=== PATIENT | female | born 1965 | race Caucasian/White ===

== ENCOUNTER 2020-12-19 19:10 | Emergency (ER) | payer MEDICAID ==
[2020-12-19] MEDS ORDERED: Lactated Ringers 1,000 ML IV ONE (19:24)
[2020-12-19] MEDS ORDERED: Sodium Chloride 0.9% 10 ML Syringe FLUSH PRN (19:25)
[2020-12-19] MEDS ORDERED: hydrOXYzine HCl 25 MG Tab PO ONE (19:25)
--- NOTE | 2020-12-19 19:59 | EDM.PDOC ---
ED HPI GENERAL MEDICAL PROBLEM - General Time Seen by Provider: 12/19/20 19:16 Source of Information: Reports: Patient, EMS - History of Present Illness INITIAL COMMENTS - FREE TEXT/NARRATIVE: Amy is a 55 y/o female who was brought to the ER by EMS after she started to have an anxiety attack. She reports that a couple hours ago she got very anxious and felt her heart beating fast. She was starting to think about "things" and then she was crying. She reports that her ex- 3 weeks ago and she got very sad about this today. She also in the last 2 weeks moved to [place] and is living with her son. She reports that she has been out her Zoloft and BP meds for a couple weeks. She did have an attack like this last summer, but otherwise her anxiety has been controlled. She dies admit to using a couple alcoholic drinks today and smoking marijuana. She reports that she uses marijuana for pain. She is disabled due to her arthritis pain issues. arthritic pain/hips/knees Pain Score (Numeric/FACES): 5 - Related Data Allergies Allergy/AdvReac Type Severity Reaction Status Date / Time Penicillins Allergy Cannot Verified 12/19/20 20:02 Remember Home Meds: Home Meds Losartan [Cozaar] 50 mg PO DAILY #14 tab 12/19/20 [Rx] Sertraline HCl [Zoloft] 100 mg PO DAILY #14 tablet 12/19/20 [Rx] traZODone HCl [Trazodone HCl] 50 mg PO BEDTIME #14 tablet 12/19/20 [Rx] Review of Systems - Review of Systems Review Of Systems: See Below Constitutional: Reports: No Symptoms Eyes: Reports: No Symptoms Ears: Reports: No Symptoms Nose: Reports: No Symptoms Mouth/Throat: Reports: No Symptoms Respiratory: Reports: No Symptoms Cardiovascular: Reports: Chest Pain (sharp right sided under the right breast), Palpitations GI/Abdominal: Reports: No Symptoms Genitourinary: Reports: No Symptoms Musculoskeletal: Reports: No Symptoms Skin: Reports: No Symptoms Neurological: Reports: No Symptoms Psychiatric: Reports: Depression, Anxiety ED EXAM, GENERAL - Physical Exam Exam: See Below General Appearance: Alert, WD/WN, No Apparent Distress, Anxious (Adult female, crying and upset when questioned. Cooperative with staff.) Eye Exam: Bilateral Eye: PERRL Ears: Normal Canal, Hearing Grossly Normal Nose: Normal Inspection, Normal Mucosa Throat/Mouth: Normal Inspection, Normal Lips, Normal Voice Head: Atraumatic, Normocephalic Neck: Supple Respiratory/Chest: No Respiratory Distress, Lungs Clear, Chest Non-Tender Cardiovascular: Normal Peripheral Pulses, No Murmur, Tachycardia GI/Abdominal: Normal Bowel Sounds, Soft, Non-Tender, Other (Obese) (Female) Exam: Deferred Rectal (Female) Exam: Deferred Back Exam: Other (Deferred) Extremities: Normal Inspection, Normal Range of Motion, Normal Capillary Refill Neurological: Alert, Oriented, CN II-XII Intact, Normal Cognition Psychiatric: Anxious, Tearful Skin Exam: Warm, Dry, Intact, Normal Color #1 Interpretation EKG Date: 12/19/20 Time: 19:11 Rhythm: Other (Sinus Tachycardia) Rate (Beats/Min): 121 [place]: Normal P-Wave: Present QRS: Normal ST-T: Normal QT: Prolonged Comparison: NA - No Prior EKG Course - Vital Signs Text/Narrative:: 1915 The patient was seen by the [facility]. Labs, EKG ordered. She was given a liter of LR and Hydroxyzine 100mg po. 2024 Labs reviewed. Note ONMA=664. TSH=2.2, UA neg, UDS=neg, Potassium=3.3, Koxrupp=908, CBC neg. Patient reports feeling better after IV fluids, her pulse rate had normalized. She was no longer anxious after Hydroxyzine. She was given Potassium 40mEq po x 1 for the low potassium. Discussed findings with the patient who then also told [facility] that she had gotten into an argument with her son prior to all of this starting. [facility] will write her for 14 days of Losartan, Zoloft, and Trazadone and she is advised to establish care with a local PCP during that time. She agreed and had no further questions. She was given written instructions and left the ER in stable condition. Last Recorded V/S: Last Vital Signs Temp 37.1 C 12/19/20 19:10 Pulse 136 H 12/19/20 19:10 Resp 24 H 12/19/20 19:10 BP 145/92 H 12/19/20 19:10 Pulse Ox 95 12/19/20 19:10 - Orders/Labs/Meds Orders: Active Orders 24 hr Category Date Time Status EKG Documentation Completion [RC] STAT Care 12/19/20 19:24 Active Sodium Chloride 0.9% [Saline Flush] Med 12/19/20 19:25 Active 10 ml FLUSH ASDIRECTED PRN Saline Lock Insert [OM.PC] Stat Oth 12/19/20 19:24 Ordered Medication Orders Sodium Chloride (Saline Flush) 10 ml FLUSH ASDIRECTED PRN PRN Reason: Keep Vein Open Labs: Laboratory Tests 12/19/20 12/19/20 12/19/20 Range/Units 19:39 19:39 20:00 WBC 9.0 (4.0-10.0) x10^3/uL RBC 5.28 (4.00-5.50) x10^6/uL Hgb 16.8 H (12.0-16.0) g/dL Hct 48.2 H (33.0-47.0) % MCV 91.3 (78.0-93.0) fL MCH 31.8 (26.0-32.0) pg MCHC 34.9 (32.0-36.0) g/dL RDW Coeff of Jacqueline 14.1 (10.0-15.0) % Plt Count 327 (130-400) x10^3/uL Neut % (Auto) 67.8 (50.0-80.0) % Lymph % (Auto) 24.7 L (25.0-50.0) % [place] % (Auto) 5.5 (2.0-11.0) % Eos % (Auto) 1.6 (0.0-4.0) % Baso % (Auto) 0.4 (0.2-1.2) % Sodium 141 (136-145) mmol/L Potassium 3.3 L (3.5-5.1) mmol/L Chloride 100 (98-107) mmol/L Carbon Dioxide 22 (21-32) mmol/L Anion Gap 22.3 H (5-15) mmol/L BUN 8 (7-18) mg/dL Creatinine 0.7 (0.55-1.02) mg/dL Est Cr Clr Drug Dosing TNP Estimated GFR (MDRD) > 60 Glucose 123 H (74-106) mg/dL Calcium 9.5 (8.5-10.1) mg/dL Corrected Calcium 9.34 (8.5-10.1) mg/dL Magnesium 1.8 (1.8-2.4) mg/dL Total Bilirubin 0.3 (0.2-1.0) mg/dL AST 24 (15-37) U/L ALT 27 (14-59) U/L Alkaline Phosphatase 83 (46-116) U/L Troponin I < 0.017 (<=0.056) ng/mL C-Reactive Protein 1.1 H (<=0.9) mg/dL Total Protein 8.0 (6.4-8.2) g/dL Albumin 4.2 (3.4-5.0) g/dL Globulin 3.8 Albumin/Globulin Ratio 1.11 TSH, Ultra Sensitive 2.287 (0.358-3.74) uIU/mL Urine Color Light yellow (YELLOW) Urine Appearance Clear (CLEAR) Urine pH 6.5 (5.0-8.0) Ur Specific [place] <=1.005 Urine Protein Trace H (NEGATIVE) mg/dL Urine Glucose (UA) Negative (NEGATIVE) mg/dL Urine Ketones Negative (NEGATIVE) mg/dL Urine Occult Blood Negative (NEGATIVE) Urine Nitrite Negative (NEGATIVE) Urine Bilirubin Negative (NEGATIVE) Urine Urobilinogen 0.2 (0.2) EU/dL Ur Leukocyte Esterase Negative (NEGATIVE) Urine RBC 0-5 (NOT SEEN) /HPF Urine WBC 0-5 (NOT SEEN) /HPF Ur Squamous Epith Cells Few H (NEGATIVE) /HPF Urine Bacteria Not seen (NEGATIVE) /HPF Urine Mucus Rare H (NEGATIVE) /LPF Urine Opiates Screen (NEGATIVE) Ur Buprenorphine Scrn (NEGATIVE) Ur Oxycodone Screen (NEGATIVE) Ur EDDP (Meth Metab) (NEGATIVE) Urine Methadone Screen (NEGATIVE) Ur Barbituates Screen (NEGATIVE) Ur Tricyclics Screen (NEGATIVE) Ur Phencyclidine Scrn (NEGATIVE) Ur Amphetamines Screen (NEGATIVE) U Methamphetamines Scrn (NEGATIVE) Urine MDMA Screen (NEGATIVE) U Benzodiazepines Scrn (NEGATIVE) Urine Cocaine Screen (NEGATIVE) U Marijuana (THC) Screen (NEGATIVE) Ethyl Alcohol 210 H (0-3) mg/dL 12/19/20 Range/Units 20:00 WBC (4.0-10.0) x10^3/uL RBC (4.00-5.50) x10^6/uL Hgb (12.0-16.0) g/dL Hct (33.0-47.0) % MCV (78.0-93.0) fL MCH (26.0-32.0) pg MCHC (32.0-36.0) g/dL RDW Coeff of Jacqueline (10.0-15.0) % Plt Count (130-400) x10^3/uL Neut % (Auto) (50.0-80.0) % Lymph % (Auto) (25.0-50.0) % [place] % (Auto) (2.0-11.0) % Eos % (Auto) (0.0-4.0) % Baso % (Auto) (0.2-1.2) % Sodium (136-145) mmol/L Potassium (3.5-5.1) mmol/L Chloride (98-107) mmol/L Carbon Dioxide (21-32) mmol/L Anion Gap (5-15) mmol/L BUN (7-18) mg/dL Creatinine (0.55-1.02) mg/dL Est Cr Clr Drug Dosing Estimated GFR (MDRD) Glucose (74-106) mg/dL Calcium (8.5-10.1) mg/dL Corrected Calcium (8.5-10.1) mg/dL Magnesium (1.8-2.4) mg/dL Total Bilirubin (0.2-1.0) mg/dL AST (15-37) U/L ALT (14-59) U/L Alkaline Phosphatase (46-116) U/L Troponin I (<=0.056) ng/mL C-Reactive Protein (<=0.9) mg/dL Total Protein (6.4-8.2) g/dL Albumin (3.4-5.0) g/dL Globulin Albumin/Globulin Ratio TSH, Ultra Sensitive (0.358-3.74) uIU/mL Urine Color (YELLOW) Urine Appearance (CLEAR) Urine pH (5.0-8.0) Ur Specific [place] Urine Protein (NEGATIVE) mg/dL Urine Glucose (UA) (NEGATIVE) mg/dL Urine Ketones (NEGATIVE) mg/dL Urine Occult Blood (NEGATIVE) Urine Nitrite (NEGATIVE) Urine Bilirubin (NEGATIVE) Urine Urobilinogen (0.2) EU/dL Ur Leukocyte Esterase (NEGATIVE) Urine RBC (NOT SEEN) /HPF Urine WBC (NOT SEEN) /HPF Ur Squamous Epith Cells (NEGATIVE) /HPF Urine Bacteria (NEGATIVE) /HPF Urine Mucus (NEGATIVE) /LPF Urine Opiates Screen Negative (NEGATIVE) Ur Buprenorphine Scrn Negative (NEGATIVE) Ur Oxycodone Screen Negative (NEGATIVE) Ur EDDP (Meth Metab) Negative (NEGATIVE) Urine Methadone Screen Negative (NEGATIVE) Ur Barbituates Screen Negative (NEGATIVE) Ur Tricyclics Screen Negative (NEGATIVE) Ur Phencyclidine Scrn Negative (NEGATIVE) Ur Amphetamines Screen Negative (NEGATIVE) U Methamphetamines Scrn Negative (NEGATIVE) Urine MDMA Screen Negative (NEGATIVE) U Benzodiazepines Scrn Negative (NEGATIVE) Urine Cocaine Screen Negative (NEGATIVE) U Marijuana (THC) Screen Negative (NEGATIVE) Ethyl Alcohol (0-3) mg/dL Meds: Medications Generic Name Dose Route Start Last Admin Trade Name Freq PRN Reason Stop Dose Admin Sodium Chloride 10 ml 12/19/20 19:25 Saline Flush FLUSH ASDIRECTED PRN Keep Vein Open Discontinued Medications Generic Name Dose Route Start Last Admin Trade Name Freq PRN Reason Stop Dose Admin Hydroxyzine HCl 100 mg 12/19/20 19:25 12/19/20 19:50 Atarax PO 12/19/20 19:26 100 mg ONETIME ONE Administration Lactated Ringer's 1,000 mls @ 999 mls/hr 12/19/20 19:24 12/19/20 19:55 Ringers, Lactated IV 12/19/20 20:24 999 mls/hr ONETIME ONE Administration Potassium Chloride 40 meq 12/19/20 20:22 12/19/20 20:33 Klor-Con M20 PO 12/19/20 20:23 40 meq ONETIME ONE Administration Departure - Departure Time of Disposition: 20:35 Disposition: Home, Self-Care 01 Preliminary Cause of *Q: Sepsis & Multi System Organ Failure Condition: Good Clinical Impression: Anxiety, Hypokalemia, Noncompliance with medications Alcohol intoxication Qualifiers: Complication of substance-induced condition: uncomplicated Qualified Code(s): F10.920 - Alcohol use, unspecified with intoxication, uncomplicated Hypertension Qualifiers: Hypertension type: unspecified Qualified Code(s): I10 - Essential (primary) hypertension - Discharge Information *PRESCRIPTION DRUG MONITORING PROGRAM REVIEWED*: No *COPY OF PRESCRIPTION DRUG MONITORING REPORT IN PATIENT FAVIO: No Prescriptions: Losartan [Cozaar] 50 mg PO DAILY #14 tab traZODone HCl [Trazodone HCl] 50 mg PO BEDTIME #14 tablet Sertraline HCl [Zoloft] 100 mg PO DAILY #14 tablet Instructions: Binge-Drinking Information, Adult, Managing Anxiety, Adult, Managing Your Hypertension Referrals: PCP,None [Primary Care Provider] - Additional Instructions: -You have been written for 14 days of Losartan, Zoloft, and Trazadone. Please fill them tomorrow AM at one of the local pharmacies. -Stay well hydrated with plenty of water. Eat a hearty meal when you get home. Avoid any further alcohol tonight. -Rest. -Call one of the local clinics on Tuesday to set up an appt time to establish care here in [place]. -Resume the Potassium and Magnesium that you have at home. -Return to the ER for any concerns as needed. Sepsis Event Note (ED) - Focused Exam Vital Signs: Vital Signs Temp Pulse Resp BP Pulse Ox 12/19/20 19:10 37.1 C 136 H 24 H 145/92 H 95 - My Orders Last 24 Hours: My Active Orders 12/19/20 19:24 EKG Documentation Completion [RC] STAT Saline Lock Insert [OM.PC] Stat 12/19/20 19:25 Sodium Chloride 0.9% [Saline Flush] 10 ml FLUSH ASDIRECTED PRN - Assessment/Plan Last 24 Hours: My Active Orders 12/19/20 19:24 EKG Documentation Completion [RC] STAT Saline Lock Insert [OM.PC] Stat 12/19/20 19:25 Sodium Chloride 0.9% [Saline Flush] 10 ml FLUSH ASDIRECTED PRN Assessment:: 1)Anxiety 2)Alcohol Intoxication 3)Hypertension 4)Hypokalemia 5)Noncompliance with medications
[2020-12-19 20:14] LABS: BUPRENORPHINE,URINE NEGATIVE (NEGATIVE); MARIJUANA,URINE NEGATIVE (NEGATIVE); METHYLENEDIOXYMETHAMP,UR NEGATIVE (NEGATIVE); PHENCYCLIDINE,URINE NEGATIVE (NEGATIVE)
[2020-12-19 20:16] LABS: CHLORIDE,CL 100 mmol/L (98-107); SODIUM,NA 141 mmol/L (136-145)
[2020-12-19 20:17] LABS: ANION GAP 22.3 mmol/L (5-15)
[2020-12-19] MEDS ORDERED: Potassium Chloride 20 MEQ Tab.ER PO ONE (20:22)
== END 2020-12-19 20:48 | disposition home or self-care (01) ==
LOC: VM.ED 19:10
DX: F41.9 Anxiety disorder, unspecified (principal); I10 Essential (primary) hypertension; E87.6 Hypokalemia; F10.120 Alcohol abuse with intoxication, uncomplicated; R00.0 Tachycardia, unspecified; E66.9 Obesity, unspecified; Z68.32 Body mass index [BMI] 32.0-32.9, adult; Z91.14 Patient's other noncompliance with medication regimen; Y90.7 Blood alcohol level of 200-239 mg/100 ml; Z88.0 Allergy status to penicillin
CPT/HCPCS: 36415; 80053; 80305-QW; 80307; 81001; 83735; 84443; 84484; 85025; 86140; 93005; 93010; 99284; 99284-25; A9270-GY; J7120

== ENCOUNTER 2021-09-30 09:52 | Observation (INO) | payer MEDICAID ==
--- NOTE | 2021-09-30 10:16 | EDM.PDOC ---
ED HPI GENERAL MEDICAL PROBLEM - General Chief Complaint: General Stated Complaint: Numbness and tingling in her legs and arms shortness of breath Time Seen by Provider: 09/30/21 09:55 Source of Information: Reports: Patient History Limitations: Reports: No Limitations - History of Present Illness INITIAL COMMENTS - FREE TEXT/NARRATIVE: 56-year-old white female that presents to the ER today with ongoing numbness and tingling in her legs arms around her lips that started about 8:00 this morning with some shortness of breath. Patient states that she does has numbness and tingling going all the way up and down her legs and arms and around her lips she states maybe she is a little bit anxious this morning. She states numbness and tingling actually started about 2 days ago and she felt like she may be having a flareup of her diverticulitis that she had several years ago when her leg started having numbness and tingling like this. She also states that she is had little bit of shortness of breath secondary to getting worked up a little bit. She admits she does have anxiety and usually takes lorazepam but she has not taken her morning dose nor she taken her morning dose of her hypertension medications this morning. She denies any chest pain nausea vomiting abdominal pain changes with bowel movements or bleeding states she feels fine except for the HPI above. She does admit that she has anxiety attacks occasionally but it has been a little while Duration: Hour(s):, Day(s): Quality: Reports: Burning, Other (Numbness and tingling to the legs and the hands) Improves with: Reports: None Worsens with: Reports: None Associated Symptoms: Reports: Shortness of Breath. Denies: Confusion, Chest Pain, Cough, cough w sputum, Diaphoresis, Fever/Chills, Headaches, Malaise, Nausea/Vomiting, Rash, Seizure, Weakness - Related Data Allergies Allergy/AdvReac Type Severity Reaction Status Date / Time cefazolin Allergy Hives Verified 09/30/21 10:30 morphine Allergy Difficulty Verified 09/30/21 10:30 Breathing Penicillins Allergy Cannot Verified 09/30/21 10:30 Remember povidone-iodine Allergy Rash Verified 09/30/21 10:30 Home Meds: Home Meds Losartan [Cozaar] 50 mg PO DAILY #14 tab 12/19/20 [Rx] traZODone HCl [Trazodone HCl] 50 mg PO BEDTIME #14 tablet 12/19/20 [Rx] Acetaminophen [Acetaminophen Extra Strength] 1,000 mg PO Q6H PRN 09/30/21 [History] DULoxetine [Cymbalta] 60 mg PO DAILY 09/30/21 [History] LORazepam [Ativan] 0.5 mg PO TID PRN 09/30/21 [History] Melatonin 10 mg PO BEDTIME 09/30/21 [History] Nystatin 1 each MC BID PRN 09/30/21 [History] Potassium Chloride 20 meq PO DAILY 09/30/21 [History] busPIRone HCl [Buspirone HCl] 7.5 mg PO BID 09/30/21 [History] Past Medical History Cardiovascular History: Reports: Hypertension Gastrointestinal History: Reports: Diverticulosis Musculoskeletal History: Reports: Arthritis Psychiatric History: Reports: Anxiety, Depression, Panic Attack - Past Surgical History GI Surgical History: Reports: Other (See Below) Other GI Surgeries/Procedures: Colon resection ED ROS GENERAL - Review of Systems Review Of Systems: See Below Constitutional: Reports: No Symptoms HEENT: Reports: No Symptoms Respiratory: Reports: Shortness of Breath. Denies: Wheezing, Pleuritic Chest Pain, Cough, Sputum, Hemoptysis Cardiovascular: Reports: No Symptoms. Denies: Chest Pain, Blood Pressure Problem, Claudication, Dyspnea on Exertion, Lightheadedness, Orthopnea Endocrine: Reports: No Symptoms GI/Abdominal: Reports: No Symptoms : Reports: No Symptoms Musculoskeletal: Reports: No Symptoms. Denies: Neck Pain, Shoulder Pain, Back Pain, Muscle Pain, Muscle Stiffness Skin: Reports: No Symptoms Neurological: Reports: Numbness, Tingling. Denies: Confusion, Dizziness, Headache, Paresthesia, Pre-Existing Deficit, Trouble Speaking, Difficulty Walking, Weakness, Change in Speech, Gait Disturbance Psychiatric: Reports: No Symptoms Hematologic/Lymphatic: Reports: No Symptoms Immunologic: Reports: No Symptoms ED EXAM, GENERAL - Physical Exam Exam: See Below Exam Limited By: No Limitations General Appearance: Alert, WD/WN, No Apparent Distress, Anxious Eye Exam: Bilateral Eye: EOMI, Normal Inspection, PERRL Ears: Hearing Grossly Normal Nose: Normal Inspection, Normal Mucosa, No Blood Throat/Mouth: Normal Inspection, Normal Lips, Normal Teeth, Normal Gums, Normal Oropharynx, Normal Voice, No Airway Compromise Head: Atraumatic, Normocephalic Neck: Normal Inspection, Supple, Non-Tender, Full Range of Motion Respiratory/Chest: No Respiratory Distress, Lungs Clear, Normal Breath Sounds, No Accessory Muscle Use, Chest Non-Tender, Wheezing, Other (Some mild end expiratory wheezing no signs or symptoms of any respiratory distress noted patient is noted to be tachycardic but satting fine respiratory is fine no accessory muscles used). No: Respiratory Distress, Decreased Breath Sounds, Accessory Muscle Use Cardiovascular: Normal Peripheral Pulses, Regular Rate, Rhythm, No Edema, No Gallop, No JVD, No Murmur, No Rub, Tachycardia GI/Abdominal: Normal Bowel Sounds, Soft, Non-Tender, No Organomegaly, No Distention, Other (No peritoneal signs noted). No: Guarding, Rigid, Rebound, Tender Back Exam: Normal Inspection, Full Range of Motion Extremities: Normal Inspection, Normal Range of Motion, Non-Tender, Normal Capillary Refill, Other (+1 bilateral pedal edema patient states this is about her normal). No: No Pedal Edema Neurological: Alert, Oriented, CN II-XII Intact, Normal Cognition, No Motor/Sensory Deficits, Other (Patient has equal intelligence intern 5 of 5 upper extremity lower extremity bilateral) Psychiatric: Normal Affect, Normal Mood Skin Exam: Warm, Dry, Intact, Normal Color, No Rash #1 Interpretation EKG Date: 09/30/21 Time: 10:00 Rhythm: NSR [place]: Normal P-Wave: Present QRS: Normal ST-T: Normal QT: Normal Course - Vital Signs Text/Narrative:: CBC BMP chest x-ray EKG BNP CBC noted to have white count of 14.8 but patient is afebrile no symptoms of infection BMP potassium and magnesium and calcium are low EKG shows normal sinus rhythm with tachycardia no acute findings noted BNP of 200 Patient has no chest pain whatsoever no signs or symptoms of any cardiac issues at this time Patient was rechecked states she feels much better in regards to the shortness of breath and the numbness and tingling but does admit she is having some muscle cramping to the lower extremities now. We will put the patient in for observation with Dr. Arminda Powers secondary to electrolyte [id number] Last Recorded V/S: Last Vital Signs Temp 36.1 C 09/30/21 10:40 Pulse 120 H 09/30/21 10:40 Resp 24 H 09/30/21 10:40 BP 164/113 H 09/30/21 11:01 Pulse Ox 97 09/30/21 10:40 - Orders/Labs/Meds Orders: Active Orders 24 hr Category Date Time Status EKG 12 Lead [EKG Documentation Completion] [RC] STAT Care 09/30/21 10:45 Active CORONAVIRUS COVID-19 RAPID [MOLEC] Urgent Lab 09/30/21 11:51 Ordered LORazepam [Ativan] Med 09/30/21 11:52 Once 0.5 mg PO ONETIME ONE Sodium Chloride 0.9% [Normal Saline] 1,000 ml Med 09/30/21 12:00 Ordered IV ASDIRECTED Medication Orders Sodium Chloride (Normal Saline) 1,000 mls @ 1,000 mls/hr IV ASDIRECTED ASHLEY Labs: Laboratory Tests 09/30/21 09/30/21 09/30/21 Range/Units 10:08 10:08 10:08 WBC 14.8 H (4.0-10.0) x10^3/uL RBC 5.20 (4.00-5.50) x10^6/uL Hgb 17.4 H (12.0-16.0) g/dL Hct 49.8 H (33.0-47.0) % MCV 95.8 H (78.0-93.0) fL MCH 33.5 H (26.0-32.0) pg MCHC 34.9 (32.0-36.0) g/dL RDW Coeff of Jacqueline 13.3 (10.0-15.0) % Plt Count 352 (130-400) x10^3/uL Immature Gran % (Auto) 0.40 (0.00-0.43) % Neut % (Auto) 75.7 (50.0-80.0) % Lymph % (Auto) 16.0 L (25.0-50.0) % [place] % (Auto) 6.7 (2.0-11.0) % Eos % (Auto) 0.7 (0.0-4.0) % Baso % (Auto) 0.5 (0.2-1.2) % Neut # (Auto) 11.2 H (1.8-7.7) x10^3/uL Lymph # (Auto) 2.4 (1.0-4.8) x10^3/uL [place] # (Auto) 1.0 H (0.0-0.8) x10^3/uL Eos # (Auto) 0.1 (0.0-0.5) x10^3/uL Baso # (Auto) 0.1 (0.0-0.2) x10^3/uL Immature Gran # (Auto) 0.06 (0.00-0.07) x10^3/uL Sodium 136 (136-145) mmol/L Potassium 2.4 L* (3.5-5.1) mmol/L Chloride 92 L (98-107) mmol/L Carbon Dioxide 21 (21-32) mmol/L Anion Gap 25.4 H (5-15) mmol/L BUN 5 L (7-18) mg/dL Creatinine 0.9 (0.55-1.02) mg/dL Est Cr Clr Drug Dosing TNP Estimated GFR (MDRD) > 60 Glucose 120 H (70-99) mg/dL Calcium 5.6 L* D (8.5-10.1) mg/dL Magnesium 0.5 L* (1.8-2.4) mg/dL NT-Pro-B Natriuret Pep 201 H (<=125) pg/mL Meds: Medications Generic Name Dose Route Start Last Admin Trade Name Freq PRN Reason Stop Dose Admin Sodium Chloride 1,000 mls @ 1,000 mls/hr 09/30/21 12:00 Normal Saline IV ASDIRECTED ASHLEY Discontinued Medications Generic Name Dose Route Start Last Admin Trade Name Freq PRN Reason Stop Dose Admin Lorazepam 0.5 mg 09/30/21 11:52 Lorazepam 0.5 Mg Tab PO 09/30/21 11:53 ONETIME ONE Losartan Potassium 50 mg 09/30/21 10:43 09/30/21 11:01 Losartan 50 Mg Tab PO 09/30/21 10:44 50 mg ONETIME ONE Administration Magnesium Oxide 400 mg 09/30/21 10:40 09/30/21 11:01 Magnesium Oxide 400 Mg Tab PO 09/30/21 10:41 400 mg ONETIME ONE Administration Potassium Bicarbonate 50 meq 09/30/21 10:55 09/30/21 11:01 Potassium Bicarbonate 25 Meq Tab.Eff PO 09/30/21 10:56 50 meq ONETIME ONE Administration Potassium Chloride 40 meq 09/30/21 10:41 Potassium Chloride 10% 20 Meq/15 Ml Soln 15 Ml Ud Cup PO 09/30/21 10:42 ONETIME ONE Departure - Departure Time of Disposition: 11:55 Disposition: Refer to Observation Condition: Good Clinical Impression: Tachycardia, Hypokalemia, Hypocalcemia, Magnesium deficiency, Shortness of breath - Discharge Information *PRESCRIPTION DRUG MONITORING PROGRAM REVIEWED*: No *COPY OF PRESCRIPTION DRUG MONITORING REPORT IN PATIENT FAVIO: No Forms: ED Department Discharge Sepsis Event Note (ED) - Focused Exam Vital Signs: Vital Signs Temp Pulse Resp BP BP Pulse Ox 09/30/21 11:01 164/113 H 09/30/21 10:40 36.1 C 120 H 24 H 166/113 H 97 - Problem List & Annotations (1) Hypertension SNOMED Code(s): 88018191 Code(s): I10 - ESSENTIAL (PRIMARY) HYPERTENSION Status: Acute Current Visit: No Qualifiers: Hypertension type: unspecified Qualified Code(s): I10 - Essential (primary) hypertension (2) Hypokalemia SNOMED Code(s): 40291467 Code(s): E87.6 - HYPOKALEMIA Status: Acute Current Visit: Yes (3) Hypocalcemia SNOMED Code(s): 9988350 Code(s): E83.51 - HYPOCALCEMIA Status: Acute Current Visit: Yes (4) Magnesium deficiency SNOMED Code(s): 764822505 Code(s): E61.2 - MAGNESIUM DEFICIENCY Status: Acute Current Visit: Yes (5) Shortness of breath SNOMED Code(s): 101291111 Code(s): R06.02 - SHORTNESS OF BREATH Status: Acute Current Visit: Yes (6) Tachycardia SNOMED Code(s): 4526324 Code(s): R00.0 - TACHYCARDIA, UNSPECIFIED Status: Acute Current Visit: Yes - My Orders Last 24 Hours: My Active Orders 09/30/21 10:45 EKG 12 Lead [EKG Documentation Completion] [RC] STAT 09/30/21 11:51 CORONAVIRUS COVID-19 RAPID [MOLEC] Urgent 09/30/21 11:52 LORazepam [Ativan] 0.5 mg PO ONETIME ONE 09/30/21 12:00 Sodium Chloride 0.9% [Normal Saline] 1,000 ml IV ASDIRECTED - Assessment/Plan Last 24 Hours: My Active Orders 09/30/21 10:45 EKG 12 Lead [EKG Documentation Completion] [RC] STAT 09/30/21 11:51 CORONAVIRUS COVID-19 RAPID [MOLEC] Urgent 09/30/21 11:52 LORazepam [Ativan] 0.5 mg PO ONETIME ONE 09/30/21 12:00 Sodium Chloride 0.9% [Normal Saline] 1,000 ml IV ASDIRECTED
[2021-09-30 10:33] LABS: CHLORIDE,CL 92 mmol/L (98-107); SODIUM,NA 136 mmol/L (136-145)
[2021-09-30 10:34] LABS: ANION GAP 25.4 mmol/L (5-15)
--- NOTE | 2021-09-30 10:34 | CR ---
[id number] RAD/RAD Chest PA or AP 1V EXAM: FRONTAL CHEST INDICATION: SOB COMPARISON: None. DISCUSSION: There is cardiomegaly with mild central vascular congestion. Chronic appearing right rib fractures. No effusions. IMPRESSION: 1. Cardiomegaly with probable early central vascular congestion. Derick Riley MD 09/30/21 1033 Thank you for allowing us to participate in the care of your patient.
[2021-09-30] MEDS ORDERED: Magnesium Oxide 400 MG Tab PO ONE (10:40)
[2021-09-30] MEDS ORDERED: Potassium Chloride 10% 20 MEQ/15 ML Soln 15 ML UD Cup PO ONE (10:41)
[2021-09-30] MEDS ORDERED: Losartan 50 MG Tab PO ONE (10:43)
[2021-09-30] MEDS ORDERED: Potassium Bicarbonate 25 MEQ Tab.EFF PO ONE (10:55)
[2021-09-30] MEDS ORDERED: LORazepam 0.5 MG Tab PO ONE (11:52)
[2021-09-30] MEDS ORDERED: Sodium Chloride 0.9% 1,000 ML IV SCH (12:00)
[2021-09-30] MEDS ORDERED: Magnesium Sulfate/Water 4 GM in Premix Bag 1 BAG IV ONE (12:42)
--- NOTE | 2021-09-30 13:05 | PCM.HP.2 ---
H&P History of Present Illness - General Date of Service: 09/30/21 Admit Problem/Dx: Admission Diagnosis/Problem Admission Diagnosis/Problem Electrolyte imbalance Source of Information: Patient History Limitations: Reports: No Limitations - History of Present Illness Initial Comments - Free Text/Narative: Ms. Yo is a 56 yo female with PMH of HTN, anxiety/depression, tobacco use, and OA who presented to the ER for evaluation of 24 hours of tingling in both legs from her buttocks down. Also noticing more muscle cramps in general. Has been ill recently with a cough but this is improving. Is more short of breath than usual but this is also improving. Has had some diarrhea off and on, which is not unusual for her. Not severe. Has had some dry heaves but no vomiting. No fever or chills. She has been taking her medications as prescribed. - Related Data Allergies/Adverse Reactions: Allergies Allergy/AdvReac Type Severity Reaction Status Date / Time cefazolin Allergy Hives Verified 09/30/21 10:30 morphine Allergy Difficulty Verified 09/30/21 10:30 Breathing Penicillins Allergy Cannot Verified 09/30/21 10:30 Remember povidone-iodine Allergy Rash Verified 09/30/21 10:30 Home Medications: Home Meds Losartan [Cozaar] 50 mg PO DAILY #14 tab 12/19/20 [Rx] traZODone HCl [Trazodone HCl] 50 mg PO BEDTIME #14 tablet 12/19/20 [Rx] Acetaminophen [Acetaminophen Extra Strength] 1,000 mg PO Q6H PRN 09/30/21 [History] DULoxetine [Cymbalta] 60 mg PO DAILY 09/30/21 [History] LORazepam [Ativan] 0.5 mg PO TID PRN 09/30/21 [History] Melatonin 10 mg PO BEDTIME 09/30/21 [History] Nystatin 1 each MC BID PRN 09/30/21 [History] Potassium Chloride 20 meq PO DAILY 09/30/21 [History] busPIRone HCl [Buspirone HCl] 7.5 mg PO BID 09/30/21 [History] Past Medical History HEENT History: Reports: None Cardiovascular History: Reports: Hypertension Respiratory History: Reports: COPD Gastrointestinal History: Reports: Diverticulosis Genitourinary History: Reports: None Musculoskeletal History: Reports: Arthritis Neurological History: Reports: None Psychiatric History: Reports: Anxiety, Depression, Panic Attack Endocrine/Metabolic History: Reports: Obesity/BMI 30+ Hematologic History: Reports: None Oncologic (Cancer) History: Reports: None Dermatologic History: Reports: None - Past Surgical History HEENT Surgical History: Reports: Cataract Surgery GI Surgical History: Reports: Cholecystectomy, Colonoscopy, Other (See Below) Other GI Surgeries/Procedures: Colon resection Female Surgical History: Reports: Section, Hysterectomy Neurological Surgical History: Reports: Lumbar Spine Musculoskeletal Surgical History: Reports: Knee Replacement (and subsequent revision), Other (See Below) (bunion) Social & Family History - Family History Oncologic: Reports: Lung - Tobacco Use Tobacco Use Status *Q: Current Every Day Tobacco User - Alcohol Use Alcohol Use in Last Twelve Months: Yes Alcohol Use Frequency: Daily - Recreational Drug Use Recreational Drug Use: Yes Recreational Drug Type: Reports: Marijuana/Hashish Recreational Drug Use Frequency: Daily - Living Situation & Occupation Living situation: Reports: , Alone Occupation: Disabled H&P Review of Systems - Review of Systems: Review Of Systems: See Below General: Reports: No Symptoms HEENT: Reports: No Symptoms Pulmonary: Reports: Shortness of Breath, Cough Cardiovascular: Reports: Edema. Denies: Chest Pain, Lightheadedness Gastrointestinal: Reports: Diarrhea, Nausea. Denies: Abdominal Pain, Vomiting Genitourinary: Reports: No Symptoms Musculoskeletal: Reports: Other (muscle cramps) Skin: Reports: No Symptoms Psychiatric: Reports: No Symptoms Neurological: Reports: Tingling. Denies: Confusion, Headache, Numbness Exam - Exam Exam: See Below - Vital Signs Vital Signs: Last Vital Signs Temp 36.1 C 09/30/21 10:40 Pulse 120 H 09/30/21 10:40 Resp 24 H 09/30/21 10:40 BP 164/113 H 09/30/21 11:01 Pulse Ox 97 09/30/21 10:40 Weight: 107.955 kg - Exam General: Alert, Oriented, Cooperative HEENT: Conjunctiva Clear, Mucosa Moist & Phillips, Pupils Equal, Pupils Reactive Neck: Supple, Trachea Midline. No: Lymphadenopathy, Thyromegaly Lungs: Clear to Auscultation, Normal Respiratory Effort Cardiovascular: Regular Rhythm, Normal S1, Normal S2, Tachycardia GI/Abdominal Exam: Normal Bowel Sounds, Soft, Non-Tender, No Organomegaly, No Distention, No Mass Extremities: Normal Inspection, Normal Range of Motion, Non-Tender, Pedal Edema (2+ to above the ankles bilaterally) Peripheral Pulses: 2+: Radial (L), Radial (R) Skin: Warm, Dry, Intact Neuro Extensive - Mental Status: Alert, Oriented x3 - Patient Data Lab Results Last 24 hrs: Laboratory Results - last 24 hr 09/30/21 09/30/21 09/30/21 Range/Units 10:08 10:08 10:08 WBC 14.8 H (4.0-10.0) x10^3/uL RBC 5.20 (4.00-5.50) x10^6/uL Hgb 17.4 H (12.0-16.0) g/dL Hct 49.8 H (33.0-47.0) % MCV 95.8 H (78.0-93.0) fL MCH 33.5 H (26.0-32.0) pg MCHC 34.9 (32.0-36.0) g/dL RDW Coeff of Jacqueline 13.3 (10.0-15.0) % Plt Count 352 (130-400) x10^3/uL Immature Gran % (Auto) 0.40 (0.00-0.43) % Neut % (Auto) 75.7 (50.0-80.0) % Lymph % (Auto) 16.0 L (25.0-50.0) % [place] % (Auto) 6.7 (2.0-11.0) % Eos % (Auto) 0.7 (0.0-4.0) % Baso % (Auto) 0.5 (0.2-1.2) % Neut # (Auto) 11.2 H (1.8-7.7) x10^3/uL Lymph # (Auto) 2.4 (1.0-4.8) x10^3/uL [place] # (Auto) 1.0 H (0.0-0.8) x10^3/uL Eos # (Auto) 0.1 (0.0-0.5) x10^3/uL Baso # (Auto) 0.1 (0.0-0.2) x10^3/uL Immature Gran # (Auto) 0.06 (0.00-0.07) x10^3/uL Sodium 136 (136-145) mmol/L Potassium 2.4 L* (3.5-5.1) mmol/L Chloride 92 L (98-107) mmol/L Carbon Dioxide 21 (21-32) mmol/L Anion Gap 25.4 H (5-15) mmol/L BUN 5 L (7-18) mg/dL Creatinine 0.9 (0.55-1.02) mg/dL Est Cr Clr Drug Dosing TNP Estimated GFR (MDRD) > 60 Glucose 120 H (70-99) mg/dL Calcium 5.6 L* D (8.5-10.1) mg/dL Magnesium 0.5 L* (1.8-2.4) mg/dL NT-Pro-B Natriuret Pep 201 H (<=125) pg/mL Albumin (3.4-5.0) g/dL SARS CoV-2 RNA Rapid SANNA (NEGATIVE) 09/30/21 09/30/21 Range/Units 10:08 11:48 WBC (4.0-10.0) x10^3/uL RBC (4.00-5.50) x10^6/uL Hgb (12.0-16.0) g/dL Hct (33.0-47.0) % MCV (78.0-93.0) fL MCH (26.0-32.0) pg MCHC (32.0-36.0) g/dL RDW Coeff of Jacqueline (10.0-15.0) % Plt Count (130-400) x10^3/uL Immature Gran % (Auto) (0.00-0.43) % Neut % (Auto) (50.0-80.0) % Lymph % (Auto) (25.0-50.0) % [place] % (Auto) (2.0-11.0) % Eos % (Auto) (0.0-4.0) % Baso % (Auto) (0.2-1.2) % Neut # (Auto) (1.8-7.7) x10^3/uL Lymph # (Auto) (1.0-4.8) x10^3/uL [place] # (Auto) (0.0-0.8) x10^3/uL Eos # (Auto) (0.0-0.5) x10^3/uL Baso # (Auto) (0.0-0.2) x10^3/uL Immature Gran # (Auto) (0.00-0.07) x10^3/uL Sodium (136-145) mmol/L Potassium (3.5-5.1) mmol/L Chloride (98-107) mmol/L Carbon Dioxide (21-32) mmol/L Anion Gap (5-15) mmol/L BUN (7-18) mg/dL Creatinine (0.55-1.02) mg/dL Est Cr Clr Drug Dosing Estimated GFR (MDRD) Glucose (70-99) mg/dL Calcium (8.5-10.1) mg/dL Magnesium (1.8-2.4) mg/dL NT-Pro-B Natriuret Pep (<=125) pg/mL Albumin 3.1 L (3.4-5.0) g/dL SARS CoV-2 RNA Rapid SANNA Negative (NEGATIVE) Result Diagrams: 09/30/21 10:08 09/30/21 10:08 Sepsis Event Note - Evaluation Sepsis Screening Result: Possible Sepsis Risk - Focused Exam Vital Signs: Vital Signs Temp Pulse Resp BP BP Pulse Ox 09/30/21 11:01 164/113 H 09/30/21 10:40 36.1 C 120 H 24 H 166/113 H 97 *Q Meaningful Use (ADM) - VTE *Q VTE Anticoagulation Contraindications: Med/TX Not Indicated/Need - Problem List (1) Hypomagnesemia SNOMED Code(s): 442695210 ICD Code: E83.42 - HYPOMAGNESEMIA Status: Acute Current Visit: Yes (2) Hypocalcemia SNOMED Code(s): 1693168 ICD Code: E83.51 - HYPOCALCEMIA Status: Acute Current Visit: Yes (3) Hypokalemia SNOMED Code(s): 38154318 ICD Code: E87.6 - HYPOKALEMIA Status: Acute Current Visit: Yes (4) COPD (chronic obstructive pulmonary disease) SNOMED Code(s): 45376959 ICD Code: J44.9 - CHRONIC OBSTRUCTIVE PULMONARY DISEASE, UNSPECIFIED Status: Acute Current Visit: Yes Qualifiers: COPD type: COPD with acute exacerbation Qualified Code(s): J44.1 - Chronic obstructive pulmonary disease with (acute) exacerbation (5) Tobacco use SNOMED Code(s): 911291171 ICD Code: Z72.0 - TOBACCO USE Status: Chronic Current Visit: Yes (6) Hypertension SNOMED Code(s): 23366457 ICD Code: I10 - ESSENTIAL (PRIMARY) HYPERTENSION Status: Chronic Current Visit: No Qualifiers: Hypertension type: primary hypertension Qualified Code(s): I10 - Essential (primary) hypertension (7) Anxiety and depression SNOMED Code(s): 178722196 ICD Code: F41.9 - ANXIETY DISORDER, UNSPECIFIED; F32.A - DEPRESSION, UNSPECIFIED Status: Chronic Current Visit: Yes Problem List Initiated/Reviewed/Updated: Yes Orders Last 24hrs: Active Orders 24 hr Category Date Time Status Patient Status [ADT] Urgent ADT 09/30/21 11:57 Active Cardiac Monitoring [RC] CONTINUOUS Care 09/30/21 12:43 Ordered EKG 12 Lead [EKG Documentation Completion] [RC] STAT Care 09/30/21 10:45 Active Notify Provider Vital Signs [RC] ASDIRECTED Care 09/30/21 12:49 Ordered Oxygen Therapy [RC] PRN Care 09/30/21 12:48 Ordered Up With Assistance [RC] ASDIRECTED Care 09/30/21 12:48 Ordered VTE/DVT Education [RC] PER UNIT ROUTINE Care 09/30/21 12:48 Ordered Vital Signs [RC] Q4H Care 09/30/21 12:48 Ordered Regular Diet [DIET] Diet 09/30/21 Dinner Ordered ALDOSTERONE [REF] Routine Lab 10/01/21 05:11 Ordered ALDOSTERONE/RENIN RATIO [REF] Routine Lab 10/01/21 05:11 Ordered BASIC METABOLIC PANEL,BMP [CHEM] Routine Lab 09/30/21 21:00 Ordered CBC WITH AUTO DIFF [HEME] Routine Lab 10/01/21 05:11 Ordered COMPREHENSIVE METABOLIC PN,CMP [CHEM] Routine Lab 10/01/21 05:11 Ordered CORTISOL [REF] Routine Lab 10/01/21 05:11 Ordered MAGNESIUM [CHEM] Routine Lab 09/30/21 21:00 Ordered PTH, INTACT [REF] Routine Lab 10/01/21 05:11 Ordered TSH ULTRASENSITIVE [CHEM] Routine Lab 10/01/21 05:11 Ordered Calcium Carbonate [Tums Extra Strength] Med 09/30/21 13:00 Ordered 1,500 mg PO Q2H Magnesium Sulfate/Water [Magnesium Sulfate in Water 4 Med 09/30/21 12:42 Ordered GM/100 ML] 4 gm Premix Bag 1 bag IV ONETIME Sodium Chloride 0.9% with KCl [Normal Saline with 40 Med 09/30/21 12:45 Ordered mEq KCl] 1,000 ml IV ASDIRECTED Anticoagulation Contraindications VTE [AST] Per Unit Oth 09/30/21 12:48 Ordered Routine Resuscitation Status Routine Resus Stat 09/30/21 12:48 Ordered Medication Orders Calcium Carbonate/Glycine (Calcium Carbonate 750 Mg Tab.Chew) 1,500 mg PO Q2H ASHLEY Magnesium Sulfate 4 gm/ Premix 100 mls @ 25 mls/hr IV ONETIME ONE Stop: 09/30/21 16:41 Potassium Chloride/Sodium Chloride (Normal Saline With 40 Meq Kcl) 1,000 mls @ 75 mls/hr IV ASDIRECTED ASHLEY Assessment/Plan Comment:: #1 Hypomagnesemia #2 Hypokalemia #3 Hypocalcemia - Ca corrects to 6.3 with albumin result; however, accuracy is in question with her mag being low. - Is symptomatic with this. - Need to correct magnesium before we will be able to correct anything else. Will give 4 grams over the next 4 hours. - Will give oral calcium in the form of tums. While her calcium is very low, the accuracy is in question as above and she does not have severe symptoms at this time. - Will give potassium in her IV fluids. - Recheck lab at 9 pm tonight and then make adjustments. - She will be on telemetry. - Cause for her multiple electrolyte issues is unclear. Question whether she has more of an issue with alcohol than is realized. Otherwise wonder about an endocrine cause. Lab ordered for tomorrow am to include CMP, PTH, TSH, cortisol, and aldosterone. #4 COPD exacerbation #5 Tobacco use - Recent increase in symptoms but already improving. - Will hold off on any treatment unless symptoms worse again. - Note increased WBC but will trend in the absence of other symptoms prior to doing any antibiotics. - She declines a nicotine patch. #6 Hypertension - BP very high on ER arrival. - Had not taken her medications yet today. - Will monitor through the afternoon. - If persistently high, will do a repeat dose of losartan. - Aldactone would be a good option for her BP and swelling; however, will hold off until her lab is drawn in the morning to avoid any messing with those results. #7 Anxiety and depression - Continue home medications. Patient is admitted to observation as it is hoped she will be able to d/c home tomorrow. Detailed plan as above. Code status is full - discussed on admission. No role for VTE prophylaxis given short hospital stay anticipated - will start if it is determined stay will be longer than expected. - Mortality Measure Prognosis:: Good
[2021-09-30] MEDS: Calcium Carbonate 750 MG Tab.Chew PO SCH ×6 (13:16→22:51)
[2021-09-30] MEDS: Sodium Chloride 0.9% with KCl 1,000 ML IV SCH (13:25)
[2021-09-30] MEDS ORDERED: Acetaminophen 500 MG Tab PO PRN (13:51)
[2021-09-30] MEDS: LORazepam 0.5 MG Tab PO PRN (16:29)
[2021-09-30] MEDS: busPIRone 15 MG Tab PO SCH (19:46)
[2021-09-30] MEDS ORDERED: Melatonin 3 MG Tab PO SCH (20:00)
[2021-09-30] MEDS ORDERED: traZODone 50 MG Tab PO SCH (20:00)
[2021-09-30 21:25] LABS: ANION GAP 14.6 mmol/L (5-15)
[2021-10-01] MEDS: Calcium Carbonate 750 MG Tab.Chew PO SCH ×8 (02:04→16:15)
[2021-10-01] MEDS: Sodium Chloride 0.9% with KCl 1,000 ML IV SCH (02:07)
[2021-10-01] MEDS ORDERED: DULoxetine 20 MG Cap PO SCH (08:00)
[2021-10-01] MEDS ORDERED: Losartan 50 MG Tab PO SCH (08:00)
--- NOTE | 2021-10-01 09:06 | PCM.DCSUM1 ---
Discharge Summary - Hospital Course Brief History: Ms. Yo is a 56 yo female who was admitted to observation for electrolyte repletion after presenting to the ER for evaluation of tingling and weakness in both lower extremities for the preceding 24 hours. - Discharge Data Discharge Date: 10/01/21 Discharge Disposition: Home, Self-Care 01 Condition: Good - Referral to Home Health Primary Care Physician: Arminda Sanchez MD - Discharge Diagnosis/Problem(s) (1) Hypomagnesemia SNOMED Code(s): 381608388 ICD Code: E83.42 - HYPOMAGNESEMIA Status: Acute Current Visit: Yes (2) Hypocalcemia SNOMED Code(s): 5036589 ICD Code: E83.51 - HYPOCALCEMIA Status: Acute Current Visit: Yes (3) Hypokalemia SNOMED Code(s): 90600898 ICD Code: E87.6 - HYPOKALEMIA Status: Acute Current Visit: Yes (4) COPD (chronic obstructive pulmonary disease) SNOMED Code(s): 97688049 ICD Code: J44.9 - CHRONIC OBSTRUCTIVE PULMONARY DISEASE, UNSPECIFIED Status: Acute Current Visit: Yes Qualifiers: COPD type: COPD with acute exacerbation Qualified Code(s): J44.1 - Chronic obstructive pulmonary disease with (acute) exacerbation (5) Tobacco use SNOMED Code(s): 312631119 ICD Code: Z72.0 - TOBACCO USE Status: Chronic Current Visit: Yes (6) Hypertension SNOMED Code(s): 65775201 ICD Code: I10 - ESSENTIAL (PRIMARY) HYPERTENSION Status: Chronic Current Visit: No Qualifiers: Hypertension type: primary hypertension Qualified Code(s): I10 - Essential (primary) hypertension (7) Anxiety and depression SNOMED Code(s): 806433649 ICD Code: F41.9 - ANXIETY DISORDER, UNSPECIFIED; F32.A - DEPRESSION, UNSPECIFIED Status: Chronic Current Visit: Yes - Patient Summary/Data Operative Procedure(s) Performed: none Complications: none Consults: none Labs Pending at D/C: none Recommended Follow-up Testing/Procedures: none Planned Operative Procedure(s) after DC: none Hospital Course: Patient was found to have severely low magnesium, potassium, and calcium in the ER. Repletion was started in the ER and then adjusted upon admission. Symptoms improved and eventually completely resolved. She has been able to ambulate without any balance or strength issues. She is feeling back to herself. Labs have gradually improved as well. Magnesium is now near normal as is her corrected calcium. Potassium is improved but still mildly low. Since she is feeling better, she will be discharged home on oral repletion later today. She will finish her current bag of IV fluids prior to d/c. The cause for her electrolyte abnormalities is unclear as she has not been on a diuretic. She has not been taking her potassium as prescribed but only for the past 2-3 days. Her blood pressure was initially high but has come down nicely with her losartan. She has also been struggling with a COPD exacerbation that just will not clear up. She will be discharged on 5 days of prednisone. Hospitalization was otherwise uncomplicated. She will be discharged to follow-up in clinic early next week. - Patient Instructions Diet: Usual Diet as Tolerated Activity: As Tolerated Notify Provider of: Fever, Nausea and/or Vomiting - Discharge Plan *PRESCRIPTION DRUG MONITORING PROGRAM REVIEWED*: No *COPY OF PRESCRIPTION DRUG MONITORING REPORT IN PATIENT FAVIO: No Prescriptions/Med Rec: busPIRone HCl [Buspirone HCl] 7.5 mg PO BID #30 Losartan [Cozaar] 50 mg PO DAILY #30 tab DULoxetine [Cymbalta] 60 mg PO DAILY #90 cap Potassium Chloride 40 meq PO BID #60 tablet.er predniSONE [Prednisone] 40 mg PO DAILY #10 tablet Magnesium Chloride [Slow-Mag] 71.5 mg PO TID #90 tablet. traZODone HCl [Trazodone HCl] 75 mg PO BEDTIME #45 Home Medications: Home Meds Acetaminophen [Acetaminophen Extra Strength] 1,000 mg PO Q6H PRN 09/30/21 [History] LORazepam [Ativan] 0.5 mg PO TID PRN 09/30/21 [History] Melatonin 10 mg PO BEDTIME 09/30/21 [History] Nystatin 1 applic TOP BID PRN 09/30/21 [History] Calcium Carbonate [Tums Extra Strength] 1,500 mg PO QID tab.chew 10/01/21 [Rx] DULoxetine [Cymbalta] 60 mg PO DAILY #90 cap 10/01/21 [Rx] Losartan [Cozaar] 50 mg PO DAILY #30 tab 10/01/21 [Rx] Magnesium Chloride [Slow-Mag] 71.5 mg PO TID #90 tablet. 10/01/21 [Rx] Potassium Chloride 40 meq PO BID #60 tablet.er 10/01/21 [Rx] busPIRone HCl [Buspirone HCl] 7.5 mg PO BID #30 10/01/21 [Rx] predniSONE [Prednisone] 40 mg PO DAILY #10 tablet 10/01/21 [Rx] traZODone HCl [Trazodone HCl] 75 mg PO BEDTIME #45 10/01/21 [Rx] Forms: ED Department Discharge Referrals: Arminda Sanchez MD [Primary Care Provider] - - Discharge Summary/Plan Comment DC Time >30 min.: No Total # of Minutes for Discharge Time: 20 - General Info Date of Service: 10/01/21 Subjective Update: Patient states she is feeling much better this morning. Legs are strong and back to normal. No longer having tingling. Does not have her voice still. Mentions she feels like she cannot kick this cold she has. Cough and shortness of breath stable. - Review of Systems General: Reports: No Symptoms HEENT: Reports: No Symptoms Pulmonary: Reports: Shortness of Breath, Cough Cardiovascular: Reports: No Symptoms Gastrointestinal: Reports: No Symptoms Genitourinary: Reports: No Symptoms Musculoskeletal: Reports: No Symptoms Skin: Reports: No Symptoms Neurological: Reports: No Symptoms - Patient Data Vitals - Most Recent: Last Vital Signs Temp 36.1 C 10/01/21 06:00 Pulse 114 H 10/01/21 06:00 Resp 18 10/01/21 06:00 BP 125/74 10/01/21 06:00 Pulse Ox 92 L 10/01/21 06:00 Weight - Most Recent: 111.13 kg I&O - Last 24 hours: Intake & Output 09/30/21 10/01/21 10/01/21 22:59 06:59 14:59 Intake Total 500 1250 Output Total 100 1200 Balance 400 50 Lab Results - Last 24 hrs: Laboratory Results - last 24 hr 09/30/21 09/30/21 09/30/21 Range/Units 10:08 10:08 10:08 WBC 14.8 H (4.0-10.0) x10^3/uL RBC 5.20 (4.00-5.50) x10^6/uL Hgb 17.4 H (12.0-16.0) g/dL Hct 49.8 H (33.0-47.0) % MCV 95.8 H (78.0-93.0) fL MCH 33.5 H (26.0-32.0) pg MCHC 34.9 (32.0-36.0) g/dL RDW Coeff of Jacqueline 13.3 (10.0-15.0) % Plt Count 352 (130-400) x10^3/uL Immature Gran % (Auto) 0.40 (0.00-0.43) % Neut % (Auto) 75.7 (50.0-80.0) % Lymph % (Auto) 16.0 L (25.0-50.0) % Wake % (Auto) 6.7 (2.0-11.0) % Eos % (Auto) 0.7 (0.0-4.0) % Baso % (Auto) 0.5 (0.2-1.2) % Neut # (Auto) 11.2 H (1.8-7.7) x10^3/uL Lymph # (Auto) 2.4 (1.0-4.8) x10^3/uL Wake # (Auto) 1.0 H (0.0-0.8) x10^3/uL Eos # (Auto) 0.1 (0.0-0.5) x10^3/uL Baso # (Auto) 0.1 (0.0-0.2) x10^3/uL Immature Gran # (Auto) 0.06 (0.00-0.07) x10^3/uL Sodium 136 (136-145) mmol/L Potassium 2.4 L* (3.5-5.1) mmol/L Chloride 92 L (98-107) mmol/L Carbon Dioxide 21 (21-32) mmol/L Anion Gap 25.4 H (5-15) mmol/L BUN 5 L (7-18) mg/dL Creatinine 0.9 (0.55-1.02) mg/dL Est Cr Clr Drug Dosing TNP Estimated GFR (MDRD) > 60 Glucose 120 H (70-99) mg/dL Calcium 5.6 L* D (8.5-10.1) mg/dL Corrected Calcium (8.5-10.1) mg/dL Magnesium 0.5 L* (1.8-2.4) mg/dL Total Bilirubin (0.2-1.0) mg/dL AST (15-37) U/L ALT (14-59) U/L Alkaline Phosphatase (46-116) U/L NT-Pro-B Natriuret Pep 201 H (<=125) pg/mL Total Protein (6.4-8.2) g/dL Albumin (3.4-5.0) g/dL Globulin Albumin/Globulin Ratio TSH, Ultra Sensitive (0.358-3.74) uIU/mL SARS CoV-2 RNA Rapid SANNA (NEGATIVE) 09/30/21 09/30/21 09/30/21 Range/Units 10:08 11:48 21:00 WBC (4.0-10.0) x10^3/uL RBC (4.00-5.50) x10^6/uL Hgb (12.0-16.0) g/dL Hct (33.0-47.0) % MCV (78.0-93.0) fL MCH (26.0-32.0) pg MCHC (32.0-36.0) g/dL RDW Coeff of Jacqueline (10.0-15.0) % Plt Count (130-400) x10^3/uL Immature Gran % (Auto) (0.00-0.43) % Neut % (Auto) (50.0-80.0) % Lymph % (Auto) (25.0-50.0) % Wake % (Auto) (2.0-11.0) % Eos % (Auto) (0.0-4.0) % Baso % (Auto) (0.2-1.2) % Neut # (Auto) (1.8-7.7) x10^3/uL Lymph # (Auto) (1.0-4.8) x10^3/uL Wake # (Auto) (0.0-0.8) x10^3/uL Eos # (Auto) (0.0-0.5) x10^3/uL Baso # (Auto) (0.0-0.2) x10^3/uL Immature Gran # (Auto) (0.00-0.07) x10^3/uL Sodium 138 (136-145) mmol/L Potassium 2.6 L* (3.5-5.1) mmol/L Chloride 94 L (98-107) mmol/L Carbon Dioxide 32 D (21-32) mmol/L Anion Gap 14.6 (5-15) mmol/L BUN 8 (7-18) mg/dL Creatinine 1.0 (0.55-1.02) mg/dL Est Cr Clr Drug Dosing 59.63 Estimated GFR (MDRD) 57 Glucose 122 H (70-99) mg/dL Calcium 6.2 L* (8.5-10.1) mg/dL Corrected Calcium (8.5-10.1) mg/dL Magnesium 1.7 L (1.8-2.4) mg/dL Total Bilirubin (0.2-1.0) mg/dL AST (15-37) U/L ALT (14-59) U/L Alkaline Phosphatase (46-116) U/L NT-Pro-B Natriuret Pep (<=125) pg/mL Total Protein (6.4-8.2) g/dL Albumin 3.1 L (3.4-5.0) g/dL Globulin Albumin/Globulin Ratio TSH, Ultra Sensitive (0.358-3.74) uIU/mL SARS CoV-2 RNA Rapid SANNA Negative (NEGATIVE) 10/01/21 10/01/21 Range/Units 06:50 06:50 WBC 12.8 H (4.0-10.0) x10^3/uL RBC 4.62 (4.00-5.50) x10^6/uL Hgb 15.6 D (12.0-16.0) g/dL Hct 45.1 (33.0-47.0) % MCV 97.6 H (78.0-93.0) fL MCH 33.8 H (26.0-32.0) pg MCHC 34.6 (32.0-36.0) g/dL RDW Coeff of Jacqueline 13.2 (10.0-15.0) % Plt Count 274 D (130-400) x10^3/uL Immature Gran % (Auto) 0.30 (0.00-0.43) % Neut % (Auto) 78.6 (50.0-80.0) % Lymph % (Auto) 12.6 L (25.0-50.0) % Wake % (Auto) 7.2 (2.0-11.0) % Eos % (Auto) 1.0 (0.0-4.0) % Baso % (Auto) 0.3 (0.2-1.2) % Neut # (Auto) 10.1 H (1.8-7.7) x10^3/uL Lymph # (Auto) 1.6 (1.0-4.8) x10^3/uL Wake # (Auto) 0.9 H (0.0-0.8) x10^3/uL Eos # (Auto) 0.1 (0.0-0.5) x10^3/uL Baso # (Auto) 0.0 (0.0-0.2) x10^3/uL Immature Gran # (Auto) 0.04 (0.00-0.07) x10^3/uL Sodium 140 (136-145) mmol/L Potassium 3.0 L (3.5-5.1) mmol/L Chloride 97 L (98-107) mmol/L Carbon Dioxide 31 (21-32) mmol/L Anion Gap 15.0 (5-15) mmol/L BUN 7 (7-18) mg/dL Creatinine 1.0 (0.55-1.02) mg/dL Est Cr Clr Drug Dosing 59.63 Estimated GFR (MDRD) 57 Glucose 127 H (70-99) mg/dL Calcium 6.7 L* (8.5-10.1) mg/dL Corrected Calcium 7.8 L D (8.5-10.1) mg/dL Magnesium (1.8-2.4) mg/dL Total Bilirubin 1.3 H (0.2-1.0) mg/dL AST 42 H (15-37) U/L ALT 23 (14-59) U/L Alkaline Phosphatase 171 H (46-116) U/L NT-Pro-B Natriuret Pep (<=125) pg/mL Total Protein 5.7 L (6.4-8.2) g/dL Albumin 2.6 L (3.4-5.0) g/dL Globulin 3.1 Albumin/Globulin Ratio 0.84 TSH, Ultra Sensitive 0.756 (0.358-3.74) uIU/mL SARS CoV-2 RNA Rapid SANNA (NEGATIVE) Med Orders - Current: Current Medications Acetaminophen (Acetaminophen 500 Mg Tab) 1,000 mg PO Q6H PRN PRN Reason: Pain Buspirone HCl (Buspirone 15 Mg Tab) 7.5 mg PO BID [facility] Last Admin: 09/30/21 19:46 Dose: 7.5 mg Documented by: Calcium Carbonate/Glycine (Calcium Carbonate 750 Mg Tab.Chew) 1,500 mg PO Q2H [facility] Last Admin: 10/01/21 06:27 Dose: 1,500 mg Documented by: Duloxetine HCl (Duloxetine 20 Mg Cap) 60 mg PO DAILY [facility] Potassium Chloride/Sodium Chloride (Normal Saline With 40 Meq Kcl) 1,000 mls @ 75 mls/hr IV ASDIRECTED [facility] Last Admin: 10/01/21 02:07 Dose: 75 mls/hr Documented by: Lorazepam (Lorazepam 0.5 Mg Tab) 0.5 mg PO TID PRN PRN Reason: Anxiety Last Admin: 09/30/21 16:29 Dose: 0.5 mg Documented by: Losartan Potassium (Losartan 50 Mg Tab) 50 mg PO DAILY [facility] Melatonin (Melatonin 3 Mg Tab) 9 mg PO BEDTIME [facility] Last Admin: 09/30/21 19:46 Dose: 9 mg Documented by: Trazodone HCl (Trazodone 50 Mg Tab) 75 mg PO BEDTIME [facility] Last Admin: 09/30/21 19:46 Dose: 75 mg Documented by: Discontinued Medications Sodium Chloride (Normal Saline) 1,000 mls @ 1,000 mls/hr IV ASDIRECTED [facility] Magnesium Sulfate 4 gm/ Premix 100 mls @ 25 mls/hr IV ONETIME ONE Stop: 09/30/21 16:41 Last Admin: 09/30/21 13:17 Dose: 25 mls/hr Documented by: Lorazepam (Lorazepam 0.5 Mg Tab) 0.5 mg PO ONETIME ONE Stop: 09/30/21 11:53 Last Admin: 09/30/21 12:07 Dose: 0.5 mg Documented by: Losartan Potassium (Losartan 50 Mg Tab) 50 mg PO ONETIME ONE Stop: 09/30/21 10:44 Last Admin: 09/30/21 11:01 Dose: 50 mg Documented by: Magnesium Oxide (Magnesium Oxide 400 Mg Tab) 400 mg PO ONETIME ONE Stop: 09/30/21 10:41 Last Admin: 09/30/21 11:01 Dose: 400 mg Documented by: Potassium Bicarbonate (Potassium Bicarbonate 25 Meq Tab.Eff) 50 meq PO ONETIME ONE Stop: 09/30/21 10:56 Last Admin: 09/30/21 11:01 Dose: 50 meq Documented by: Potassium Chloride (Potassium Chloride 10% 20 Meq/15 Ml Soln 15 Ml Ud Cup) 40 meq PO ONETIME ONE Stop: 09/30/21 10:42 Last Admin: 09/30/21 16:38 Dose: Not Given Documented by: - Exam General: Reports: Alert, Oriented, Cooperative, No Acute Distress HEENT: Reports: Mucous Membr. Moist/[place] Neck: Reports: Supple, Trachea Midline, No Thyromegaly. Denies: Lymphadenopathy Lungs: Reports: Clear to Auscultation, Normal Respiratory Effort Cardiovascular: Reports: Regular Rate, Regular Rhythm, No Murmurs GI/Abdominal Exam: Normal Bowel Sounds, Soft, Non-Tender, No Organomegaly, No Distention, No Mass Extremities: Normal Inspection, Normal Range of Motion, Non-Tender, Pedal Edema (1+) Skin: Reports: Warm, Dry, Intact Neurological: Reports: No New Focal Deficit *Q Meaningful Use (DIS) - VTE *Q VTE Anticoagulation Contraindications: Med/TX Not Indicated/Need
[2021-10-01] MEDS: busPIRone 15 MG Tab PO SCH (09:21)
[2021-10-01] MEDS: LORazepam 0.5 MG Tab PO PRN ×2 (09:27→14:17)
[2021-10-01] MEDS ORDERED: Albuterol/Ipratropium 3.0-0.5 MG/3 ML Neb Soln NEB ONE (12:06)
== END 2021-10-01 16:10 | disposition home or self-care (01) ==
LOC: VM.ED 09:52 → VM.MS 11:57
PROVIDERS: ADMIT Physician Assistant Medical; ATTEND Family Medicine
DX: R20.2 Paresthesia of skin (principal); R53.1 Weakness; I10 Essential (primary) hypertension; F41.9 Anxiety disorder, unspecified; E66.9 Obesity, unspecified; F17.200 Nicotine dependence, unspecified, uncomplicated; E83.51 Hypocalcemia; E87.6 Hypokalemia; J44.1 Chronic obstructive pulmonary disease with (acute) exacerbation; F32.A Depression, unspecified; Z20.822 Contact with and (suspected) exposure to COVID-19; Z88.5 Allergy status to narcotic agent; Z88.0 Allergy status to penicillin; Z88.8 Allergy status to other drugs, medicaments and biological substances; Z79.899 Other long term (current) drug therapy; Z90.49 Acquired absence of other specified parts of digestive tract; Z98.890 Other specified postprocedural states
CPT/HCPCS: 36415; 71045; 80048; 80053; 82040; 82088; 82533; 83735; 83880; 83970; 84443; 85025; 93010; 94640; 99284; 99285-25; A9270-GY; J3475; J3480; J7030; J7620-GY; U0002

== ENCOUNTER 2021-11-09 01:58 | Inpatient (IN) | payer MEDICAID ==
--- NOTE | 2021-11-09 02:23 | EDM.PDOC ---
ED HPI GENERAL MEDICAL PROBLEM - General Chief Complaint: Cardiovascular Problem Stated Complaint: chest pain, right leg pain Time Seen by Provider: 11/09/21 02:15 Source of Information: Reports: Patient, EMS History Limitations: Reports: No Limitations - History of Present Illness INITIAL COMMENTS - FREE TEXT/NARRATIVE: Presents to ER with multiple complaints. States leg hurts, right worse than left. Reports non-productive cough. States nose is dry. Had CP per EMS, and she got 4 81mg aspirin. Denies CP on arrival. Also reports some nausea and diarrhea. States has had these symptoms for a week. Has recently been on predisone and Levaquin per pt. Onset: Unknown/Unsure Onset Date: 11/02/21 Duration: Getting Worse Quality: Reports: Ache Improves with: Reports: None Worsens with: Reports: Movement Associated Symptoms: Reports: Cough, Nausea/Vomiting - Related Data Allergies Allergy/AdvReac Type Severity Reaction Status Date / Time cefazolin Allergy Hives Verified 09/30/21 10:30 morphine Allergy Difficulty Verified 09/30/21 10:30 Breathing Penicillins Allergy Cannot Verified 09/30/21 10:30 Remember povidone-iodine Allergy Rash Verified 09/30/21 10:30 Home Meds: Home Meds Acetaminophen [Acetaminophen Extra Strength] 1,000 mg PO Q6H PRN 09/30/21 [History] LORazepam [Ativan] 0.5 mg PO TID PRN 09/30/21 [History] Melatonin 10 mg PO BEDTIME 09/30/21 [History] Nystatin 1 applic TOP BID PRN 09/30/21 [History] Calcium Carbonate [Tums Extra Strength] 1,500 mg PO QID tab.chew 10/01/21 [Rx] DULoxetine [Cymbalta] 60 mg PO DAILY #90 cap 10/01/21 [Rx] Losartan [Cozaar] 50 mg PO DAILY #30 tab 10/01/21 [Rx] Magnesium Chloride [Slow-Mag] 71.5 mg PO TID #90 tablet. 10/01/21 [Rx] Potassium Chloride 40 meq PO BID #60 tablet.er 10/01/21 [Rx] busPIRone HCl [Buspirone HCl] 7.5 mg PO BID #30 10/01/21 [Rx] predniSONE [Prednisone] 40 mg PO DAILY #10 tablet 10/01/21 [Rx] traZODone HCl [Trazodone HCl] 75 mg PO BEDTIME #45 10/01/21 [Rx] Past Medical History HEENT History: Reports: None Cardiovascular History: Reports: Hypertension Respiratory History: Reports: COPD Gastrointestinal History: Reports: Diverticulosis Genitourinary History: Reports: None Musculoskeletal History: Reports: Arthritis Neurological History: Reports: None Psychiatric History: Reports: Anxiety, Depression, Panic Attack Endocrine/Metabolic History: Reports: Obesity/BMI 30+ Hematologic History: Reports: None Oncologic (Cancer) History: Reports: None Dermatologic History: Reports: None - Past Surgical History HEENT Surgical History: Reports: Cataract Surgery GI Surgical History: Reports: Cholecystectomy, Colonoscopy, Other (See Below) Other GI Surgeries/Procedures: Colon resection Female Surgical History: Reports: Section, Hysterectomy Neurological Surgical History: Reports: Lumbar Spine Musculoskeletal Surgical History: Reports: Knee Replacement (and subsequent revision), Other (See Below) (bunion) Social & Family History - Family History Family Medical History: No Pertinent Family History Oncologic: Reports: Lung - Caffeine Use Caffeine Use: Reports: Soda, Tea - Living Situation & Occupation Living situation: Reports: , Alone Occupation: Disabled ED ROS GENERAL - Review of Systems Review Of Systems: See Below Constitutional: Reports: No Symptoms HEENT: Reports: Other (c/ dry nasal membranes) Respiratory: Reports: Cough Cardiovascular: Reports: Chest Pain Endocrine: Reports: No Symptoms GI/Abdominal: Reports: Diarrhea, Nausea Musculoskeletal: Reports: Leg Pain Skin: Reports: Erythema (BLE) Neurological: Reports: No Symptoms Psychiatric: Reports: Anxiety, Depression Hematologic/Lymphatic: Reports: No Symptoms Immunologic: Reports: No Symptoms ED EXAM, GENERAL - Physical Exam Exam: See Below Exam Limited By: No Limitations General Appearance: Alert, No Apparent Distress Eye Exam: Bilateral Eye: EOMI, Normal Inspection Ears: Normal External Exam, Hearing Grossly Normal Nose: Normal Inspection, No Blood, Other (membranes dry) Throat/Mouth: Normal Inspection, Normal Oropharynx, Normal Voice, No Airway Compromise Head: Atraumatic, Normocephalic Neck: Normal Inspection, Supple, Non-Tender, Full Range of Motion Respiratory/Chest: No Respiratory Distress, No Accessory Muscle Use, Decreased Breath Sounds, Other (CP reproducible on paplation, not inspiration. Lungs coarse) Cardiovascular: Normal Peripheral Pulses, Regular Rate, Rhythm, Tachycardia GI/Abdominal: Normal Bowel Sounds, Soft, Non-Tender Back Exam: Normal Inspection, Full Range of Motion Extremities: Pedal Edema, Leg Pain, Increased Warmth Neurological: Alert, Oriented, Normal Cognition, No Motor/Sensory Deficits Psychiatric: Normal Affect, Normal Mood Skin Exam: Dry, Erythema, Increased Warmth Lymphatic: No Adenopathy #1 Interpretation EKG Date: 11/09/21 Rhythm: Other (sinus tachycardia) Course - Vital Signs Last Recorded V/S: Last Vital Signs Temp 96.9 F 11/09/21 02:00 Pulse 113 H 11/09/21 03:57 Resp 18 11/09/21 03:57 BP 126/96 H 11/09/21 02:47 Pulse Ox 95 11/09/21 03:57 - Orders/Labs/Meds Orders: Active Orders 24 hr Category Date Time Status Chest 1V Frontal [CR] Stat Exams 11/09/21 02:19 Ordered Magnesium Sulfate/Water [Magnesium Sulfate in Water 2 Med 11/09/21 02:56 Active GM/50 ML] 2 gm Premix Bag 1 bag IV ONETIME Potassium Chloride Riders [KCl in Water 10 MEQ/50 ML] Med 11/09/21 02:59 Active 10 meq Premix Bag 1 bag IV ONETIME Sodium Chloride 0.9% @ 50 MLS/HR(1000ml) Med 11/09/21 03:15 Ordered Sodium Chloride 0.9% [Normal Saline] 1,000 ml IV ASDIRECTED Medication Orders Magnesium Sulfate 2 gm/ Premix 50 mls @ 25 mls/hr IV ONETIME ONE Stop: 11/09/21 04:55 Last Admin: 11/09/21 03:07 Dose: 25 mls/hr Documented by: KULDIP Potassium Chloride 10 meq/ (Premix) 50 mls @ 50 mls/hr IV ONETIME ONE Stop: 11/09/21 03:58 Last Admin: 11/09/21 03:37 Dose: 50 mls/hr Documented by: KULDIP Sodium Chloride (Normal Saline) 1,000 mls @ 50 mls/hr IV ASDIRECTED ASHLEY Last Admin: 11/09/21 03:13 Dose: 50 mls/hr Documented by: KULDIP Labs: Laboratory Tests 11/09/21 11/09/21 11/09/21 Range/Units 02:20 02:25 02:25 WBC 15.8 H (4.0-10.0) x10^3/uL RBC 4.69 (4.00-5.50) x10^6/uL Hgb 15.9 (12.0-16.0) g/dL Hct 45.0 (33.0-47.0) % MCV 95.9 H (78.0-93.0) fL MCH 33.9 H (26.0-32.0) pg MCHC 35.3 (32.0-36.0) g/dL RDW Coeff of Jacqueline 14.3 (10.0-15.0) % Plt Count 466 H D (130-400) x10^3/uL Immature Gran % (Auto) 0.20 (0.00-0.43) % Neut % (Auto) 84.2 H (50.0-80.0) % Lymph % (Auto) 8.0 L (25.0-50.0) % [place] % (Auto) 6.8 (2.0-11.0) % Eos % (Auto) 0.4 (0.0-4.0) % Baso % (Auto) 0.4 (0.2-1.2) % Neut # (Auto) 13.3 H (1.8-7.7) x10^3/uL Lymph # (Auto) 1.3 (1.0-4.8) x10^3/uL [place] # (Auto) 1.1 H (0.0-0.8) x10^3/uL Eos # (Auto) 0.1 (0.0-0.5) x10^3/uL Baso # (Auto) 0.1 (0.0-0.2) x10^3/uL Immature Gran # (Auto) 0.03 (0.00-0.07) x10^3/uL D-Dimer, Quantitative 0.75 H (<=0.58) mg/LFEU Sodium (136-145) mmol/L Potassium (3.5-5.1) mmol/L Chloride (98-107) mmol/L Carbon Dioxide (21-32) mmol/L Anion Gap (5-15) mmol/L BUN (7-18) mg/dL Creatinine (0.55-1.02) mg/dL Est Cr Clr Drug Dosing mL/min Estimated GFR (MDRD) Glucose (70-99) mg/dL Calcium (8.5-10.1) mg/dL Corrected Calcium (8.5-10.1) mg/dL Magnesium (1.8-2.4) mg/dL Total Bilirubin (0.2-1.0) mg/dL AST (15-37) U/L ALT (14-59) U/L Alkaline Phosphatase (46-116) U/L Troponin I High Sens (<=51) ng/L Total Protein (6.4-8.2) g/dL Albumin (3.4-5.0) g/dL Globulin Albumin/Globulin Ratio Influenza Type A RNA Negative (NEGATIVE) RSV RNA (INAAT) Negative (NEGATIVE) Influenza Type B RNA Negative (NEGATIVE) SARS-CoV-2 RNA (SANNA) Negative (NEGATIVE) 11/09/21 Range/Units 02:25 WBC (4.0-10.0) x10^3/uL RBC (4.00-5.50) x10^6/uL Hgb (12.0-16.0) g/dL Hct (33.0-47.0) % MCV (78.0-93.0) fL MCH (26.0-32.0) pg MCHC (32.0-36.0) g/dL RDW Coeff of Jacqueline (10.0-15.0) % Plt Count (130-400) x10^3/uL Immature Gran % (Auto) (0.00-0.43) % Neut % (Auto) (50.0-80.0) % Lymph % (Auto) (25.0-50.0) % [place] % (Auto) (2.0-11.0) % Eos % (Auto) (0.0-4.0) % Baso % (Auto) (0.2-1.2) % Neut # (Auto) (1.8-7.7) x10^3/uL Lymph # (Auto) (1.0-4.8) x10^3/uL [place] # (Auto) (0.0-0.8) x10^3/uL Eos # (Auto) (0.0-0.5) x10^3/uL Baso # (Auto) (0.0-0.2) x10^3/uL Immature Gran # (Auto) (0.00-0.07) x10^3/uL D-Dimer, Quantitative (<=0.58) mg/LFEU Sodium 133 L (136-145) mmol/L Potassium 2.9 L* (3.5-5.1) mmol/L Chloride 94 L (98-107) mmol/L Carbon Dioxide 30 (21-32) mmol/L Anion Gap 11.9 (5-15) mmol/L BUN 6 L (7-18) mg/dL Creatinine 0.8 (0.55-1.02) mg/dL Est Cr Clr Drug Dosing 74.54 mL/min Estimated GFR (MDRD) > 60 Glucose 103 H (70-99) mg/dL Calcium 7.9 L (8.5-10.1) mg/dL Corrected Calcium 8.7 (8.5-10.1) mg/dL Magnesium 1.0 L (1.8-2.4) mg/dL Total Bilirubin 1.2 H (0.2-1.0) mg/dL AST 44 H (15-37) U/L ALT 28 (14-59) U/L Alkaline Phosphatase 175 H (46-116) U/L Troponin I High Sens 18 (<=51) ng/L Total Protein 6.7 (6.4-8.2) g/dL Albumin 3.0 L (3.4-5.0) g/dL Globulin 3.7 Albumin/Globulin Ratio 0.81 Influenza Type A RNA (NEGATIVE) RSV RNA (INAAT) (NEGATIVE) Influenza Type B RNA (NEGATIVE) SARS-CoV-2 RNA (SANNA) (NEGATIVE) Meds: Medications Generic Name Dose Route Start Last Admin Trade Name Freq PRN Reason Stop Dose Admin Magnesium Sulfate 2 gm/ Premix 50 mls @ 25 mls/hr 11/09/21 02:56 11/09/21 03:07 IV 11/09/21 04:55 25 mls/hr ONETIME ONE Administration Potassium Chloride 10 meq/ 50 mls @ 50 mls/hr 11/09/21 02:59 11/09/21 03:37 Premix IV 11/09/21 03:58 50 mls/hr ONETIME ONE Administration Sodium Chloride 1,000 mls @ 50 mls/hr 11/09/21 03:15 11/09/21 03:13 Normal Saline IV 50 mls/hr ASDIRECTED ASHLEY Administration - Radiology Interpretation Free Text/Narrative:: Bronchial wall thickening, no evidence of consolidation. - Re-Assessments/Exams Free Text/Narrative Re-Assessment/Exam: 11/09/21 04:06 All labs and x-ray report back. Pt has had mag IV and currently getting kcl infusion along with a saline drip. Called [place] provider on-call Dr. Mayfield who did not accept pt. Will admit to Observation in order for pt to receive electrolyte replacement and have subsequent lab monitoring along with cardiac telemetry monitoring. Pt has increased WBCs, but it is noted that she stated recent prednisone use. Departure - Departure Time of Disposition: 05:15 Disposition: Refer to Observation Condition: Good Clinical Impression: Hypokalemia, Hypomagnesemia, Magnesium deficiency, Hyponatremia, Edema of lower extremity Referrals: PCP,None [Primary Care Provider] - Forms: ED Department Discharge Sepsis Event Note (ED) - Focused Exam Vital Signs: Vital Signs Temp Pulse Resp BP Pulse Ox 11/09/21 03:57 113 H 18 95 11/09/21 03:40 88 L 11/09/21 02:47 121 H 24 H 126/96 H 92 L 11/09/21 02:00 96.9 F 126 H 17 150/103 H 96 - Problem List & Annotations (1) Hyponatremia SNOMED Code(s): 81909841 Code(s): E87.1 - HYPO-OSMOLALITY AND HYPONATREMIA Status: Acute Current Visit: Yes (2) Edema of lower extremity SNOMED Code(s): 916656497 Code(s): R60.0 - LOCALIZED EDEMA Status: Acute Current Visit: Yes (3) Hypokalemia SNOMED Code(s): 79098463 Code(s): E87.6 - HYPOKALEMIA Status: Acute Current Visit: No (4) Magnesium deficiency SNOMED Code(s): 310893926 Code(s): E61.2 - MAGNESIUM DEFICIENCY Status: Acute Current Visit: No (5) COPD (chronic obstructive pulmonary disease) SNOMED Code(s): 76516169 Code(s): J44.9 - CHRONIC OBSTRUCTIVE PULMONARY DISEASE, UNSPECIFIED Status: Acute Current Visit: No Qualifiers: COPD type: unspecified COPD Qualified Code(s): J44.9 - Chronic obstructive pulmonary disease, unspecified - Problem List Review Problem List Initiated/Reviewed/Updated: Yes - My Orders Last 24 Hours: My Active Orders 11/09/21 02:19 Chest 1V Frontal [CR] Stat 11/09/21 02:56 Magnesium Sulfate/Water [Magnesium Sulfate in Water 2 GM/50 ML] 2 gm Premix Bag 1 bag IV ONETIME 11/09/21 02:59 Potassium Chloride Riders [KCl in Water 10 MEQ/50 ML] 10 meq Premix Bag 1 bag IV ONETIME 11/09/21 03:15 Sodium Chloride 0.9% @ 50 MLS/HR(1000ml) Sodium Chloride 0.9% [Normal Saline] 1,000 ml IV ASDIRECTED - Assessment/Plan Admission H&P: Please use this note as an admission H&P Last 24 Hours: My Active Orders 11/09/21 02:19 Chest 1V Frontal [CR] Stat 11/09/21 02:56 Magnesium Sulfate/Water [Magnesium Sulfate in Water 2 GM/50 ML] 2 gm Premix Bag 1 bag IV ONETIME 11/09/21 02:59 Potassium Chloride Riders [KCl in Water 10 MEQ/50 ML] 10 meq Premix Bag 1 bag IV ONETIME 11/09/21 03:15 Sodium Chloride 0.9% @ 50 MLS/HR(1000ml) Sodium Chloride 0.9% [Normal Saline] 1,000 ml IV ASDIRECTED
[2021-11-09 02:49] LABS: CHLORIDE,CL 94 mmol/L (98-107); SODIUM,NA 133 mmol/L (136-145)
[2021-11-09 02:52] LABS: ANION GAP 11.9 mmol/L (5-15)
[2021-11-09] MEDS ORDERED: Magnesium Sulfate/Water 2 GM in Premix Bag 1 BAG IV ONE (02:56)
[2021-11-09] MEDS ORDERED: Potassium Chloride Riders 10 MEQ in Premix Bag 1 BAG IV ONE ×2 (02:59→04:47)
[2021-11-09 03:05] LABS: CORONAVIRUS COVID-19 NAA NEGATIVE (NEGATIVE)
[2021-11-09 03:06] LABS: RESPIRATORY SYNCYTIAL VIR NAA NEGATIVE (NEGATIVE)
[2021-11-09] MEDS ORDERED: Sodium Chloride 0.9% 1,000 ML IV SCH ×2 (03:15→05:00)
[2021-11-09] MEDS ORDERED: Magnesium Chloride 64 MG Tab.ER PO ONE (04:49)
[2021-11-09] MEDS ORDERED: Ondansetron 4 MG/2 ML SDV IV PRN (05:02)
[2021-11-09] MEDS ORDERED: Ondansetron 4 MG Tab.DIS PO PRN (05:02)
--- NOTE | 2021-11-09 05:28 | PCM.SN.2 ---
- Free Text/Narrative Note: Admitted to Obs status from ER, same provider. Please use ER notes as H&P.
[2021-11-09] MEDS: Potassium Chloride Riders 10 MEQ in Premix Bag 1 BAG IV SCH ×4 (06:02→09:54)
[2021-11-09] MEDS: Acetaminophen 325 MG Tab PO PRN ×2 (06:50→19:48)
[2021-11-09] MEDS ORDERED: Calcium Carbonate 750 MG Tab.Chew PO SCH (08:00)
[2021-11-09] MEDS ORDERED: Pneumococcal 23-Valent Conjugate Vaccine 0.5 ML Syringe IM ONE (08:04)
--- NOTE | 2021-11-09 08:26 | CR ---
[id number] RAD/RAD Chest Portable EXAM: RAD Chest Portable INDICATION: CP, COUGH COMPARISON: September 30, 2021. DISCUSSION: Cardiomediastinal silhouette is stable in size and contour. No infiltrate, effusion, pneumothorax, or edema. Multiple old right-sided rib fractures. IMPRESSION: No acute cardiopulmonary abnormality. Jayce Ramirez DO 11/09/21 0824 Thank you for allowing us to participate in the care of your patient.
[2021-11-09] MEDS: busPIRone 15 MG Tab PO SCH ×2 (11:26→19:50)
[2021-11-09] MEDS: DULoxetine 60 MG Cap PO SCH (11:26)
[2021-11-09] MEDS: Miconazole 2% Vaginal Crm 45 GM Tube TOP SCH ×2 (11:27→21:59)
[2021-11-09] MEDS: Magnesium Chloride 64 MG Tab.ER PO SCH ×3 (11:27→19:50)
--- NOTE | 2021-11-09 11:46 | PCM.SN.2 ---
- Free Text/Narrative Note: Dr. Corrina Bustillo took report on patient and assumed care.
[2021-11-09 12:12] LABS: CHLORIDE,CL 101 mmol/L (98-107); SODIUM,NA 137 mmol/L (136-145)
[2021-11-09] MEDS ORDERED: Calcium Carbonate 750 MG Tab.Chew PO PRN (12:12)
[2021-11-09 12:14] LABS: ANION GAP 9.5 mmol/L (5-15)
--- NOTE | 2021-11-09 13:35 | PN ---
Progress Note for JUVENAL ARTEAGA Date: 11/09/2021 Room #: VM.203 SUBJECTIVE: This is a 56-year-old admitted during the night due to not feeling well. She had various complaints, but was getting weaker at home over the past few days, using a walker, but last night, she developed chest pain and right leg pain, so had to call 911. The right leg is a bit red and tender to touch. It is just mildly more swollen than the left. She has no history of blood clots. She has a lot of arthritis pains and has had previous knee replacements. By the time she arrived in the ER, her chest pain resolved, her white count was 15.8. She has not had any fever, but she was found to have a low potassium of 2.9 and a magnesium of 1, so decision was made to admit her. This morning, she states that she just does not feel right, her stomach feels full, but when she went to have a bowel movement, it was just water. She was nauseous last night, but that has gone. She had not been having diarrhea or vomiting. She had recently been on Levaquin for a pneumonia until 10/30. She is not currently having any trouble breathing. She is not having any worsening of cough. She feels like eating, but her food is too hot, so she has not eaten anything yet. The patient does smoke. She admits to drinking 4 vodka drinks per day. She does have a history of electrolyte issues. She did have a followup chest x-ray last night, which showed her to have no acute changes or effusions. Old rib fractures. No infiltrates. OBJECTIVE: Vital Signs: This morning, her temperature is 97.9, weight 115.2 kg, pulse 110, blood pressure 128/63, respiratory rate 16, and O2 of 93% on room air. General: She is in no acute distress. Heart: Regular rate and rhythm. S1, S2 without murmur. Lungs: Sounds are clear to auscultation bilaterally without crackles or wheezes. Abdomen: Has positive bowel sounds. It is soft, nondistended. Extremities: Warm, dry. Redness over that right wang. She has support hose in place. She has no open wounds or ulcers, but does have some dry cracking around her toes. She has tenderness to palpation and some warmth over that right wang. She has no pitting edema, but slightly more swelling on the right leg than the left. Mental Status: She is alert and orientated x3. She is not overly anxious, but is asking to have her Ativan restarted. LABORATORY DATA: Lab work does show white count improved to 13.5, platelets were 412, hemoglobin 14.4. D-dimer on admit 0.75. Sodium 137, potassium 3.5, chloride 101, bicarb 30, BUN 9, creatinine 0.7, glucose 97. Calcium 7.4, corrected was 8.7 yesterday. Magnesium up to 1.5. Lipase 59, and procalcitonin less than 0.05. ASSESSMENT AND PLAN: 1. Right lower extremity cellulitis. I will start her on clindamycin today. We will repeat a D-dimer tomorrow. She will be on Lovenox for deep vein thrombosis prophylaxis dosing. 2. Hypokalemia, replaced IV. We will restart her oral potassium. She is no longer nauseous. 3. Fullness in abdomen, but not abdominal pain. She is not vomiting. Did discuss getting her up and walking. Concern would be for a potential ileus. We will see how she tolerates a diet. Lipase was normal. We will repeat liver enzymes tomorrow. 4. Hypomagnesemia, replaced IV. We will continue oral replacement. 5. Hyponatremia, mild and resolved. The patient admits to underlying alcohol intake. 6. Increased alcohol intake, at least 4 drinks a day. We will monitor her for any signs or symptoms of withdrawal. The patient denies any history of this. 7. Underlying chronic obstructive pulmonary disease and recent pneumonia. The patient is not requiring any oxygen. We will continue to monitor her respiratory status. 8. Obesity. 9. Weakness, probably due to her electrolyte disturbances. 10.Anxiety. We will restart her home Ativan. Continue Buspar 11.Essential hypertension. I will restart her home losartan. 12.Brief episode of chest pain. This has resolved. We will continue her on telemetry monitoring. She has no history of coronary disease. 13.Smoking. I offered her a nicotine patch. She declined. 14.Mildly elevated LFTs. AST up to 44. We will repeat in the morning. 14. Tinea Pedis PLAN: The patient will continue on observation cares. We will stop IV fluids. We will replace electrolytes orally. We will repeat lab work in the morning including another D-dimer. We will start her on clindamycin for her cellulitis. Consider an ultrasound of the right lower extremity if D-dimer were to increase further. We will have her on Lovenox for deep vein thrombosis prophylaxis. We will get her on incentive spirometry. We will get her feet cleaned up and allow her to continue on some antifungal cream as that was likely the cause of the cellulitis in the first place. Flu vaccine also ordered for the patient. MKA: 11/09/2021 13:05:36 MODL: 11/09/2021 13:26:59 /[id number] MTDClive
[2021-11-09] MEDS: Enoxaparin 40 MG/0.4 ML Syringe SUBCUT SCH (14:19)
[2021-11-09] MEDS: LORazepam 0.5 MG Tab PO PRN ×2 (14:20→22:03)
[2021-11-09] MEDS: Potassium Chloride 20 MEQ Tab.ER PO SCH ×2 (14:20→19:50)
[2021-11-09] MEDS: Clindamycin HCl 150 MG Cap PO SCH ×2 (14:20→21:59)
[2021-11-09] MEDS ORDERED: Gabapentin 100 MG Cap PO ONE (17:55)
[2021-11-09] MEDS: traZODone 50 MG Tab PO SCH (19:49)
[2021-11-09] MEDS: Melatonin 3 MG Tab PO SCH (19:49)
[2021-11-09] MEDS: Calcium Carbonate 750 MG Tab.Chew PO SCH (19:51)
[2021-11-09] MEDS ORDERED: Metoprolol Tartrate 25 MG Tab PO ONE (21:51)
[2021-11-09] MEDS: Gabapentin 100 MG Cap PO SCH (21:59)
[2021-11-10] MEDS: Acetaminophen 325 MG Tab PO PRN ×3 (03:33→19:53)
[2021-11-10] MEDS: Clindamycin HCl 150 MG Cap PO SCH ×3 (06:12→20:00)
[2021-11-10] MEDS: LORazepam 0.5 MG Tab PO PRN ×2 (06:12→15:34)
[2021-11-10 07:27] LABS: CHLORIDE,CL 99 mmol/L (98-107); SODIUM,NA 139 mmol/L (136-145)
[2021-11-10 07:30] LABS: ANION GAP 12.2 mmol/L (5-15)
--- NOTE | 2021-11-10 07:47 | PCM.PN ---
- General Info Date of Service: 11/10/21 Subjective Update: 56 yo female hospital day #2 admitted with electrolyte abnormalities again. Patient states she has not been out of bed much yet so is not sure if her weakness has improved. Is having a lot of trouble with her right leg. Does have pain and redness over the wang; she is not sure if it is better. No fever or chills. Also having some right side pain when she tries to get up and move around. Cough now mainly at night, daytime has been ok. No chest pain or short ness of breath. Had 3-4 very loose stools yesterday. - Review of Systems General: Reports: Weakness, Malaise. Denies: Fever, Chills HEENT: Reports: No Symptoms Pulmonary: Reports: Cough. Denies: Shortness of Breath Cardiovascular: Reports: No Symptoms Gastrointestinal: Reports: Diarrhea. Denies: Abdominal Pain, Nausea, Vomiting Genitourinary: Reports: No Symptoms Musculoskeletal: Reports: Back Pain, Leg Pain Skin: Reports: No Symptoms Neurological: Reports: No Symptoms - Patient Data Vitals - Most Recent: Last Vital Signs Temp 36.6 C 11/10/21 06:00 Pulse 87 11/10/21 06:00 Resp 20 11/10/21 06:00 BP 122/84 11/10/21 06:00 Pulse Ox 92 L 11/10/21 06:00 Weight - Most Recent: 115.212 kg I&O - Last 24 Hours: Intake & Output 11/09/21 11/10/21 11/10/21 22:59 06:59 14:59 Intake Total 470 360 Output Total 250 Balance 470 110 Lab Results Last 24 Hours: Laboratory Results - last 24 hr 11/09/21 11/09/21 11/09/21 Range/Units 11:49 11:49 11:49 WBC 13.5 H (4.0-10.0) x10^3/uL RBC 4.36 (4.00-5.50) x10^6/uL Hgb 14.4 D (12.0-16.0) g/dL Hct 42.8 (33.0-47.0) % MCV 98.2 H (78.0-93.0) fL MCH 33.0 H (26.0-32.0) pg MCHC 33.6 (32.0-36.0) g/dL RDW Coeff of Jacqueline 14.7 (10.0-15.0) % Plt Count 412 H (130-400) x10^3/uL Immature Gran % (Auto) 0.10 (0.00-0.43) % Neut % (Auto) 81.5 H (50.0-80.0) % Lymph % (Auto) 10.7 L (25.0-50.0) % Weber % (Auto) 6.7 (2.0-11.0) % Eos % (Auto) 0.6 (0.0-4.0) % Baso % (Auto) 0.4 (0.2-1.2) % Neut # (Auto) 11.0 H (1.8-7.7) x10^3/uL Lymph # (Auto) 1.4 (1.0-4.8) x10^3/uL Weber # (Auto) 0.9 H (0.0-0.8) x10^3/uL Eos # (Auto) 0.1 (0.0-0.5) x10^3/uL Baso # (Auto) 0.1 (0.0-0.2) x10^3/uL Immature Gran # (Auto) 0.02 (0.00-0.07) x10^3/uL D-Dimer, Quantitative (<=0.58) mg/LFEU Sodium 137 (136-145) mmol/L Potassium 3.5 (3.5-5.1) mmol/L Chloride 101 (98-107) mmol/L Carbon Dioxide 30 (21-32) mmol/L Anion Gap 9.5 (5-15) mmol/L BUN 9 (7-18) mg/dL Creatinine 0.7 (0.55-1.02) mg/dL Est Cr Clr Drug Dosing 89.64 mL/min Estimated GFR (MDRD) > 60 Glucose 97 (70-99) mg/dL Calcium 7.4 L (8.5-10.1) mg/dL Corrected Calcium (8.5-10.1) mg/dL Magnesium 1.5 L (1.8-2.4) mg/dL Total Bilirubin (0.2-1.0) mg/dL AST (15-37) U/L ALT (14-59) U/L Alkaline Phosphatase (46-116) U/L Total Protein (6.4-8.2) g/dL Albumin (3.4-5.0) g/dL Globulin Albumin/Globulin Ratio Lipase (73-393) U/L Procalcitonin (0.1-0.50) ng/mL 11/09/21 11/09/21 11/10/21 Range/Units 11:49 11:49 06:30 WBC 12.3 H (4.0-10.0) x10^3/uL RBC 4.17 (4.00-5.50) x10^6/uL Hgb 14.0 (12.0-16.0) g/dL Hct 43.0 (33.0-47.0) % MCV 103.1 H D (78.0-93.0) fL MCH 33.6 H (26.0-32.0) pg MCHC 32.6 (32.0-36.0) g/dL RDW Coeff of Jacqueline 14.9 (10.0-15.0) % Plt Count 394 (130-400) x10^3/uL Immature Gran % (Auto) 0.20 (0.00-0.43) % Neut % (Auto) 79.9 (50.0-80.0) % Lymph % (Auto) 12.0 L (25.0-50.0) % Weber % (Auto) 6.5 (2.0-11.0) % Eos % (Auto) 0.8 (0.0-4.0) % Baso % (Auto) 0.6 (0.2-1.2) % Neut # (Auto) 9.8 H (1.8-7.7) x10^3/uL Lymph # (Auto) 1.5 (1.0-4.8) x10^3/uL Weber # (Auto) 0.8 (0.0-0.8) x10^3/uL Eos # (Auto) 0.1 (0.0-0.5) x10^3/uL Baso # (Auto) 0.1 (0.0-0.2) x10^3/uL Immature Gran # (Auto) 0.03 (0.00-0.07) x10^3/uL D-Dimer, Quantitative (<=0.58) mg/LFEU Sodium (136-145) mmol/L Potassium (3.5-5.1) mmol/L Chloride (98-107) mmol/L Carbon Dioxide (21-32) mmol/L Anion Gap (5-15) mmol/L BUN (7-18) mg/dL Creatinine (0.55-1.02) mg/dL Est Cr Clr Drug Dosing mL/min Estimated GFR (MDRD) Glucose (70-99) mg/dL Calcium (8.5-10.1) mg/dL Corrected Calcium (8.5-10.1) mg/dL Magnesium (1.8-2.4) mg/dL Total Bilirubin (0.2-1.0) mg/dL AST (15-37) U/L ALT (14-59) U/L Alkaline Phosphatase (46-116) U/L Total Protein (6.4-8.2) g/dL Albumin (3.4-5.0) g/dL Globulin Albumin/Globulin Ratio Lipase 59 L (73-393) U/L Procalcitonin <0.05 L (0.1-0.50) ng/mL 11/10/21 11/10/21 Range/Units 06:30 06:30 WBC (4.0-10.0) x10^3/uL RBC (4.00-5.50) x10^6/uL Hgb (12.0-16.0) g/dL Hct (33.0-47.0) % MCV (78.0-93.0) fL MCH (26.0-32.0) pg MCHC (32.0-36.0) g/dL RDW Coeff of Jacqueline (10.0-15.0) % Plt Count (130-400) x10^3/uL Immature Gran % (Auto) (0.00-0.43) % Neut % (Auto) (50.0-80.0) % Lymph % (Auto) (25.0-50.0) % Weber % (Auto) (2.0-11.0) % Eos % (Auto) (0.0-4.0) % Baso % (Auto) (0.2-1.2) % Neut # (Auto) (1.8-7.7) x10^3/uL Lymph # (Auto) (1.0-4.8) x10^3/uL Weber # (Auto) (0.0-0.8) x10^3/uL Eos # (Auto) (0.0-0.5) x10^3/uL Baso # (Auto) (0.0-0.2) x10^3/uL Immature Gran # (Auto) (0.00-0.07) x10^3/uL D-Dimer, Quantitative 0.32 (<=0.58) mg/LFEU Sodium 139 (136-145) mmol/L Potassium 4.2 (3.5-5.1) mmol/L Chloride 99 (98-107) mmol/L Carbon Dioxide 32 (21-32) mmol/L Anion Gap 12.2 (5-15) mmol/L BUN 8 (7-18) mg/dL Creatinine 0.6 (0.55-1.02) mg/dL Est Cr Clr Drug Dosing 104.59 mL/min Estimated GFR (MDRD) > 60 Glucose 86 (70-99) mg/dL Calcium 8.2 L (8.5-10.1) mg/dL Corrected Calcium 9.6 (8.5-10.1) mg/dL Magnesium (1.8-2.4) mg/dL Total Bilirubin 0.7 (0.2-1.0) mg/dL AST 34 (15-37) U/L ALT 22 (14-59) U/L Alkaline Phosphatase 138 H (46-116) U/L Total Protein 5.2 L (6.4-8.2) g/dL Albumin 2.3 L (3.4-5.0) g/dL Globulin 2.9 Albumin/Globulin Ratio 0.79 Lipase (73-393) U/L Procalcitonin (0.1-0.50) ng/mL Med Orders - Current: Current Medications Acetaminophen (Acetaminophen 325 Mg Tab) 650 mg PO Q4H PRN PRN Reason: Pain (Mild 1-3)/fever Last Admin: 11/10/21 03:33 Dose: 650 mg Documented by: Buspirone HCl (Buspirone 15 Mg Tab) 7.5 mg PO BID [facility] Last Admin: 11/09/21 19:50 Dose: 7.5 mg Documented by: Calcium Carbonate/Glycine (Calcium Carbonate 750 Mg Tab.Chew) 1,500 mg PO BID [facility] Last Admin: 11/09/21 19:51 Dose: 1,500 mg Documented by: Calcium Carbonate/Glycine (Calcium Carbonate 750 Mg Tab.Chew) 1,500 mg PO QID PRN PRN Reason: Heartburn Clindamycin HCl (Clindamycin Hcl 150 Mg Cap) 300 mg PO Q8H [facility] Last Admin: 11/10/21 06:12 Dose: 300 mg Documented by: Duloxetine HCl (Duloxetine 60 Mg Cap) 60 mg PO DAILY [facility] Last Admin: 11/09/21 11:26 Dose: 60 mg Documented by: Enoxaparin Sodium (Enoxaparin 40 Mg/0.4 Ml Syringe) 40 mg SUBCUT Q24H [facility] Last Admin: 11/09/21 14:19 Dose: 40 mg Documented by: Gabapentin (Gabapentin 100 Mg Cap) 100 mg PO BEDTIME [facility] Last Admin: 11/09/21 21:59 Dose: 100 mg Documented by: Influenza Virus Vaccine (Pharmacy To Dose - Influenza Vaccine) 1 each IM ON ETIME PRN PRN Reason: Other Lorazepam (Lorazepam 0.5 Mg Tab) 0.5 mg PO TID PRN PRN Reason: Anxiety Last Admin: 11/10/21 06:12 Dose: 0.5 mg Documented by: Losartan Potassium (Losartan 50 Mg Tab) 50 mg PO DAILY [facility] Magnesium Chloride (Magnesium Chloride 64 Mg Tab.Er) 64 mg PO TID [facility] Last Admin: 11/09/21 19:50 Dose: 64 mg Documented by: Melatonin (Melatonin 3 Mg Tab) 9 mg PO BEDTIME [facility] Last Admin: 11/09/21 19:49 Dose: 9 mg Documented by: Miconazole (Miconazole 2% Vaginal Crm 45 Gm Tube) 0 gm TOP BID [facility] Last Admin: 11/09/21 21:59 Dose: 1 applic Documented by: Ondansetron HCl (Ondansetron 4 Mg Tab.Dis) 4 mg PO Q6H PRN PRN Reason: nausea, able to take PO Ondansetron HCl (Ondansetron 4 Mg/2 Ml Sdv) 4 mg IV Q6H PRN PRN Reason: Nausea/Vomiting Potassium Chloride (Potassium Chloride 20 Meq Tab.Er) 20 meq PO BID [facility] Last Admin: 11/09/21 19:50 Dose: 20 meq Documented by: Spironolactone (Spironolactone 25 Mg Tab) 12.5 mg PO DAILY [facility] Trazodone HCl (Trazodone 50 Mg Tab) 75 mg PO BEDTIME [facility] Last Admin: 11/09/21 19:49 Dose: 75 mg Documented by: Discontinued Medications Calcium Carbonate/Glycine (Calcium Carbonate 750 Mg Tab.Chew) 1,500 mg PO QID [facility] Last Admin: 11/09/21 11:27 Dose: 1,500 mg Documented by: Gabapentin (Gabapentin 100 Mg Cap) 100 mg PO NOW ONE Stop: 11/09/21 17:56 Last Admin: 11/09/21 18:47 Dose: 100 mg Documented by: Magnesium Sulfate 2 gm/ Premix 50 mls @ 25 mls/hr IV ONETIME ONE Stop: 11/09/21 04:55 Last Admin: 11/09/21 03:07 Dose: 25 mls/hr Documented by: Potassium Chloride 10 meq/ (Premix) 50 mls @ 50 mls/hr IV ONETIME ONE Stop: 11/09/21 03:58 Last Admin: 11/09/21 03:37 Dose: 50 mls/hr Documented by: Sodium Chloride (Normal Saline) 1,000 mls @ 50 mls/hr IV ASDIRECTED [facility] Last Admin: 11/09/21 03:13 Dose: 50 mls/hr Documented by: Potassium Chloride 10 meq/ (Premix) 50 mls @ 50 mls/hr IV ONETIME ONE Stop: 11/09/21 05:46 Last Admin: 11/09/21 04:58 Dose: 50 mls/hr Documented by: Sodium Chloride (Normal Saline) 1,000 mls @ 125 mls/hr IV ASDIRECTED [facility] Last Admin: 11/09/21 05:01 Dose: 125 mls/hr Documented by: Potassium Chloride 10 meq/ (Premix) 50 mls @ 50 mls/hr IV Q1H [facility] Stop: 11/09/21 09:29 Last Admin: 11/09/21 09:54 Dose: 50 mls/hr Documented by: Influenza Virus Vaccine (Pharmacy To Dose - Influenza Vaccine) 1 each IM ONETIME ONE Stop: 11/09/21 08:05 Influenza Virus Vaccine (Flu Vacc [id number](6mos Up)/Pf 60 Mcg/0.5 Ml Syringe) 60 mcg IM .ONCE ONE Stop: 11/09/21 08:16 Last Admin: 11/09/21 21:43 Dose: Not Given Documented by: Magnesium Chloride (Magnesium Chloride 64 Mg Tab.Er) 64 mg PO ONETIME ONE Stop: 11/09/21 04:50 Last Admin: 11/09/21 07:01 Dose: Not Given Documented by: Metoprolol Tartrate (Metoprolol Tartrate 25 Mg Tab) 25 mg PO ONETIME ONE Stop: 11/09/21 21:52 Last Admin: 11/09/21 21:59 Dose: 25 mg Documented by: Pneumococcal Polyvalent Vaccine (Pneumococcal 23-Valent Conjugate Vaccine 0.5 Ml Syringe) 25 mcg IM .ONCE ONE Stop: 11/09/21 08:05 Last Admin: 11/09/21 21:43 Dose: Not Given Documented by: - Exam General: Alert, Oriented, Cooperative, No Acute Distress HEENT: Mucous Membr. Moist/[place] Neck: Supple, Trachea Midline, No Thyromegaly. No: Lymphadenopathy Lungs: Clear to Auscultation, Normal Respiratory Effort Cardiovascular: Regular Rate, Regular Rhythm, No Murmurs GI/Abdominal Exam: Normal Bowel Sounds, Soft, Non-Tender, No Organomegaly, No Distention, No Mass Extremities: Normal Range of Motion, Normal Capillary Refill, Pedal Edema, Redness (and pain to palpation in the right lower leg; is receding from the line drawn yesterday) Peripheral Pulses: 2+: Radial (L), Radial (R) Skin: Warm, Dry, Intact, Other (erythema is receding from the outline drawn yesterday) Neurological: No New Focal Deficit - Patient Data Lab Results Last 24 hrs: Laboratory Results - last 24 hr 11/09/21 11/09/21 11/09/21 Range/Units 11:49 11:49 11:49 WBC 13.5 H (4.0-10.0) x10^3/uL RBC 4.36 (4.00-5.50) x10^6/uL Hgb 14.4 D (12.0-16.0) g/dL Hct 42.8 (33.0-47.0) % MCV 98.2 H (78.0-93.0) fL MCH 33.0 H (26.0-32.0) pg MCHC 33.6 (32.0-36.0) g/dL RDW Coeff of Jacqueline 14.7 (10.0-15.0) % Plt Count 412 H (130-400) x10^3/uL Immature Gran % (Auto) 0.10 (0.00-0.43) % Neut % (Auto) 81.5 H (50.0-80.0) % Lymph % (Auto) 10.7 L (25.0-50.0) % Weber % (Auto) 6.7 (2.0-11.0) % Eos % (Auto) 0.6 (0.0-4.0) % Baso % (Auto) 0.4 (0.2-1.2) % Neut # (Auto) 11.0 H (1.8-7.7) x10^3/uL Lymph # (Auto) 1.4 (1.0-4.8) x10^3/uL Weber # (Auto) 0.9 H (0.0-0.8) x10^3/uL Eos # (Auto) 0.1 (0.0-0.5) x10^3/uL Baso # (Auto) 0.1 (0.0-0.2) x10^3/uL Immature Gran # (Auto) 0.02 (0.00-0.07) x10^3/uL D-Dimer, Quantitative (<=0.58) mg/LFEU Sodium 137 (136-145) mmol/L Potassium 3.5 (3.5-5.1) mmol/L Chloride 101 (98-107) mmol/L Carbon Dioxide 30 (21-32) mmol/L Anion Gap 9.5 (5-15) mmol/L BUN 9 (7-18) mg/dL Creatinine 0.7 (0.55-1.02) mg/dL Est Cr Clr Drug Dosing 89.64 mL/min Estimated GFR (MDRD) > 60 Glucose 97 (70-99) mg/dL Calcium 7.4 L (8.5-10.1) mg/dL Corrected Calcium (8.5-10.1) mg/dL Magnesium 1.5 L (1.8-2.4) mg/dL Total Bilirubin (0.2-1.0) mg/dL AST (15-37) U/L ALT (14-59) U/L Alkaline Phosphatase (46-116) U/L Total Protein (6.4-8.2) g/dL Albumin (3.4-5.0) g/dL Globulin Albumin/Globulin Ratio Lipase (73-393) U/L Procalcitonin (0.1-0.50) ng/mL 11/09/21 11/09/21 11/10/21 Range/Units 11:49 11:49 06:30 WBC 12.3 H (4.0-10.0) x10^3/uL RBC 4.17 (4.00-5.50) x10^6/uL Hgb 14.0 (12.0-16.0) g/dL Hct 43.0 (33.0-47.0) % MCV 103.1 H D (78.0-93.0) fL MCH 33.6 H (26.0-32.0) pg MCHC 32.6 (32.0-36.0) g/dL RDW Coeff of Jacqueline 14.9 (10.0-15.0) % Plt Count 394 (130-400) x10^3/uL Immature Gran % (Auto) 0.20 (0.00-0.43) % Neut % (Auto) 79.9 (50.0-80.0) % Lymph % (Auto) 12.0 L (25.0-50.0) % Weber % (Auto) 6.5 (2.0-11.0) % Eos % (Auto) 0.8 (0.0-4.0) % Baso % (Auto) 0.6 (0.2-1.2) % Neut # (Auto) 9.8 H (1.8-7.7) x10^3/uL Lymph # (Auto) 1.5 (1.0-4.8) x10^3/uL Weber # (Auto) 0.8 (0.0-0.8) x10^3/uL Eos # (Auto) 0.1 (0.0-0.5) x10^3/uL Baso # (Auto) 0.1 (0.0-0.2) x10^3/uL Immature Gran # (Auto) 0.03 (0.00-0.07) x10^3/uL D-Dimer, Quantitative (<=0.58) mg/LFEU Sodium (136-145) mmol/L Potassium (3.5-5.1) mmol/L Chloride (98-107) mmol/L Carbon Dioxide (21-32) mmol/L Anion Gap (5-15) mmol/L BUN (7-18) mg/dL Creatinine (0.55-1.02) mg/dL Est Cr Clr Drug Dosing mL/min Estimated GFR (MDRD) Glucose (70-99) mg/dL Calcium (8.5-10.1) mg/dL Corrected Calcium (8.5-10.1) mg/dL Magnesium (1.8-2.4) mg/dL Total Bilirubin (0.2-1.0) mg/dL AST (15-37) U/L ALT (14-59) U/L Alkaline Phosphatase (46-116) U/L Total Protein (6.4-8.2) g/dL Albumin (3.4-5.0) g/dL Globulin Albumin/Globulin Ratio Lipase 59 L (73-393) U/L Procalcitonin <0.05 L (0.1-0.50) ng/mL 11/10/21 11/10/21 Range/Units 06:30 06:30 WBC (4.0-10.0) x10^3/uL RBC (4.00-5.50) x10^6/uL Hgb (12.0-16.0) g/dL Hct (33.0-47.0) % MCV (78.0-93.0) fL MCH (26.0-32.0) pg MCHC (32.0-36.0) g/dL RDW Coeff of Jacqueline (10.0-15.0) % Plt Count (130-400) x10^3/uL Immature Gran % (Auto) (0.00-0.43) % Neut % (Auto) (50.0-80.0) % Lymph % (Auto) (25.0-50.0) % Weber % (Auto) (2.0-11.0) % Eos % (Auto) (0.0-4.0) % Baso % (Auto) (0.2-1.2) % Neut # (Auto) (1.8-7.7) x10^3/uL Lymph # (Auto) (1.0-4.8) x10^3/uL Weber # (Auto) (0.0-0.8) x10^3/uL Eos # (Auto) (0.0-0.5) x10^3/uL Baso # (Auto) (0.0-0.2) x10^3/uL Immature Gran # (Auto) (0.00-0.07) x10^3/uL D-Dimer, Quantitative 0.32 (<=0.58) mg/LFEU Sodium 139 (136-145) mmol/L Potassium 4.2 (3.5-5.1) mmol/L Chloride 99 (98-107) mmol/L Carbon Dioxide 32 (21-32) mmol/L Anion Gap 12.2 (5-15) mmol/L BUN 8 (7-18) mg/dL Creatinine 0.6 (0.55-1.02) mg/dL Est Cr Clr Drug Dosing 104.59 mL/min Estimated GFR (MDRD) > 60 Glucose 86 (70-99) mg/dL Calcium 8.2 L (8.5-10.1) mg/dL Corrected Calcium 9.6 (8.5-10.1) mg/dL Magnesium (1.8-2.4) mg/dL Total Bilirubin 0.7 (0.2-1.0) mg/dL AST 34 (15-37) U/L ALT 22 (14-59) U/L Alkaline Phosphatase 138 H (46-116) U/L Total Protein 5.2 L (6.4-8.2) g/dL Albumin 2.3 L (3.4-5.0) g/dL Globulin 2.9 Albumin/Globulin Ratio 0.79 Lipase (73-393) U/L Procalcitonin (0.1-0.50) ng/mL Result Diagrams: 11/10/21 06:30 11/10/21 06:30 Sepsis Event Note - Evaluation Sepsis Screening Result: No Definite Risk - Focused Exam Vital Signs: Vital Signs Temp Pulse Pulse Resp BP BP Pulse Ox 11/10/21 06:00 36.6 C 87 20 122/84 92 L 12/28/21 02:00 36.3 C 92 18 135/81 92 L 11/09/21 21:59 124 H 128/84 11/09/21 21:56 36.9 C 124 H 18 128/84 92 L - Problem List & Annotations (1) Cellulitis SNOMED Code(s): 144795871 Code(s): L03.90 - CELLULITIS, UNSPECIFIED Status: Acute Current Visit: Yes Qualifiers: Site of cellulitis: extremity Site of cellulitis of extremity: lower extremity Laterality: right Qualified Code(s): L03.115 - Cellulitis of right lower limb (2) Diarrhea SNOMED Code(s): 72520605 Code(s): R19.7 - DIARRHEA, UNSPECIFIED Status: Acute Current Visit: Yes (3) Hyponatremia SNOMED Code(s): 17816135 Code(s): E87.1 - HYPO-OSMOLALITY AND HYPONATREMIA Status: Acute Current Visit: Yes (4) Hypomagnesemia SNOMED Code(s): 443441253 Code(s): E83.42 - HYPOMAGNESEMIA Status: Acute Current Visit: Yes (5) Hypokalemia SNOMED Code(s): 37252218 Code(s): E87.6 - HYPOKALEMIA Status: Acute Current Visit: Yes (6) Edema of lower extremity SNOMED Code(s): 473990652 Code(s): R60.0 - LOCALIZED EDEMA Status: Chronic Current Visit: Yes (7) Alcohol use disorder SNOMED Code(s): 3222829 Code(s): SRV0238 - Status: Chronic Current Visit: Yes (8) Obesity SNOMED Code(s): 222176316, 641646328 Code(s): E66.9 - OBESITY, UNSPECIFIED Status: Chronic Current Visit: Yes Qualifiers: Obesity type: due to excess calories Obesity classification: adult class 2 (BMI 35 - 39.9) Serious obesity comorbidity presence: with serious comorbidity Body mass index: BMI 38.0-38.9 Qualified Code(s): E66.01 - Morbid (severe) obesity due to excess calories; Z68.38 - Body mass index [BMI] 38.0-38.9, adult (9) COPD (chronic obstructive pulmonary disease) SNOMED Code(s): 65448274 Code(s): J44.9 - CHRONIC OBSTRUCTIVE PULMONARY DISEASE, UNSPECIFIED Status: Chronic Current Visit: No Qualifiers: COPD type: unspecified COPD Qualified Code(s): J44.9 - Chronic obstructive pulmonary disease, unspecified (10) Anxiety and depression SNOMED Code(s): 554352437 Code(s): F41.9 - ANXIETY DISORDER, UNSPECIFIED; F32.A - DEPRESSION, UNSPECIFIED Status: Chronic Current Visit: No (11) Hypertension SNOMED Code(s): 91221071 Code(s): I10 - ESSENTIAL (PRIMARY) HYPERTENSION Status: Chronic Current Visit: No Qualifiers: Hypertension type: primary hypertension Qualified Code(s): I10 - Essential (primary) hypertension (12) Tobacco use SNOMED Code(s): 244673565 Code(s): Z72.0 - TOBACCO USE Status: Chronic Current Visit: No - Problem List Review Problem List Initiated/Reviewed/Updated: Yes - My Orders Last 24 Hours: My Active Orders 11/10/21 07:40 OT Evaluation and Treatment [CONS] Routine PT Evaluation and Treatment [CONS] Routine 11/10/21 07:41 Patient Status [ADT] Routine 11/10/21 08:00 Spironolactone [Aldactone] 12.5 mg PO DAILY - Assessment Assessment:: 56 yo female hospital day #2 admitted with multiple electrolyte abnormalities. Labs improving. She is not sure if she feels much better. - Plan Plan:: #1 Cellulitis - Is improving. - Continue clindamycin. #2 Diarrhea - Could be medication side effect; however, c. difficile is on the differential in light of recent antibiotics. - C. difficile test pending. #3 Hyponatremia #4 Hypokalemia #5 Hypomagnesemia #6 Leg swelling - Electrolytes continuing to improve. - Will continue oral supplementation today. - Recheck labs in the am. - Discussed a trial of adding aldactone and she is in agreement with that as well. #7 Alcohol use disorder - Likely contributing to her above issues. - No evidence of withdrawal at this point. Will continue to monitor. #8 Obesity #9 Anxiety and depression #10 COPD #11 Hypertension #12 Tobacco use - Continue home medications. - Will also add omeprazole to help her overnight coughing. Patient will be admitted to [facility] today as it is not anticipated she will d/c home within the 48 hours from admission. Anticipate d/c home in the next 1-2 days. However, she is high risk for re-admission if we do not prove that she is able to maintain her electrolytes with oral repletion and if we do not monitor for resolution of her diarrhea. She also has had recurrent admissions over the past 2 months and is deconditioned from this - will have PT and OT evaluate her today to see if she needs swing bed prior to d/c home this time. Code status is full - discussed on admission. Lovenox for VTE prophylaxis. D-dimer down this morning and actually normal; no current concern for any VTE.
[2021-11-10] MEDS: Losartan 50 MG Tab PO SCH (08:44)
[2021-11-10] MEDS: Magnesium Chloride 64 MG Tab.ER PO SCH ×3 (08:44→19:53)
[2021-11-10] MEDS: busPIRone 15 MG Tab PO SCH ×2 (08:44→19:54)
[2021-11-10] MEDS: DULoxetine 60 MG Cap PO SCH (08:45)
[2021-11-10] MEDS: Potassium Chloride 20 MEQ Tab.ER PO SCH ×2 (08:45→19:55)
[2021-11-10] MEDS: Spironolactone 25 MG Tab PO SCH (08:49)
[2021-11-10] MEDS: Miconazole 2% Vaginal Crm 45 GM Tube TOP SCH ×2 (08:51→19:55)
[2021-11-10] MEDS: Calcium Carbonate 750 MG Tab.Chew PO SCH ×2 (08:51→19:56)
[2021-11-10] MEDS: Enoxaparin 40 MG/0.4 ML Syringe SUBCUT SCH (12:02)
[2021-11-10] MEDS: traZODone 50 MG Tab PO SCH (19:53)
[2021-11-10] MEDS: Omeprazole 20 MG Cap.CR PO SCH (19:54)
[2021-11-10] MEDS: Gabapentin 100 MG Cap PO SCH (19:54)
[2021-11-10] MEDS: Melatonin 3 MG Tab PO SCH (19:55)
[2021-11-11] MEDS: Acetaminophen 325 MG Tab PO PRN ×2 (03:22→15:58)
[2021-11-11] MEDS: LORazepam 0.5 MG Tab PO PRN ×2 (03:23→12:01)
[2021-11-11] MEDS: Clindamycin HCl 150 MG Cap PO SCH ×3 (05:37→20:24)
[2021-11-11 07:10] LABS: CHLORIDE,CL 100 mmol/L (98-107); SODIUM,NA 137 mmol/L (136-145)
[2021-11-11 07:11] LABS: ANION GAP 10.1 mmol/L (5-15)
[2021-11-11] MEDS: busPIRone 15 MG Tab PO SCH ×2 (08:04→20:18)
[2021-11-11] MEDS: DULoxetine 60 MG Cap PO SCH (08:04)
[2021-11-11] MEDS: Spironolactone 25 MG Tab PO SCH (08:05)
[2021-11-11] MEDS: Magnesium Chloride 64 MG Tab.ER PO SCH ×4 (08:05→20:20)
[2021-11-11] MEDS: Losartan 50 MG Tab PO SCH (08:06)
[2021-11-11] MEDS: Potassium Chloride 20 MEQ Tab.ER PO SCH ×2 (08:06→20:19)
[2021-11-11] MEDS: Miconazole 2% Vaginal Crm 45 GM Tube TOP SCH ×2 (08:07→20:26)
[2021-11-11] MEDS: Calcium Carbonate 750 MG Tab.Chew PO SCH ×2 (08:07→20:25)
[2021-11-11] MEDS ORDERED: Magnesium Sulfate/Water 2 GM in Premix Bag 1 BAG IV ONE (08:55)
--- NOTE | 2021-11-11 09:05 | PCM.PN ---
- General Info Date of Service: 11/11/21 Subjective Update: 56 yo female hospital day #3 admitted with multiple electrolyte abnormalities. Feels ok this morning. No longer having diarrhea but she is glad because her stomach is actually feeling better after she had the multiple bowel movements. Appetite is good. No nausea or vomiting. Cough seems better today. No shortness of breath. Still having the back and leg pain; wondering if her gabapentin can be increased to BID. Walked with PT yesterday and that went ok. She states that she just has times where it is worse and she cannot really predict when that is going to be. She is worried about going home, getting weak again, and falling. - Review of Systems General: Reports: No Symptoms HEENT: Reports: No Symptoms Pulmonary: Reports: No Symptoms Cardiovascular: Reports: No Symptoms Gastrointestinal: Reports: No Symptoms Genitourinary: Reports: No Symptoms Musculoskeletal: Reports: No Symptoms Skin: Reports: No Symptoms Neurological: Reports: No Symptoms - Patient Data Vitals - Most Recent: Last Vital Signs Temp 36.9 C 11/11/21 05:35 Pulse 110 H 11/11/21 05:35 Resp 18 11/11/21 05:35 BP 133/87 11/11/21 08:06 Pulse Ox 94 L 11/11/21 05:35 Weight - Most Recent: 114.305 kg I&O - Last 24 Hours: Intake & Output 11/10/21 11/11/21 11/11/21 22:59 06:59 14:59 Intake Total 1070 200 120 Output Total 500 850 Balance 570 -650 120 Lab Results Last 24 Hours: Laboratory Results - last 24 hr 11/11/21 11/11/21 Range/Units 06:27 06:27 WBC 11.2 H (4.0-10.0) x10^3/uL RBC 3.96 L (4.00-5.50) x10^6/uL Hgb 13.4 (12.0-16.0) g/dL Hct 39.9 (33.0-47.0) % MCV 100.8 H (78.0-93.0) fL MCH 33.8 H (26.0-32.0) pg MCHC 33.6 (32.0-36.0) g/dL RDW Coeff of Jacqueline 14.3 (10.0-15.0) % Plt Count 373 (130-400) x10^3/uL Immature Gran % (Auto) 0.20 (0.00-0.43) % Neut % (Auto) 80.5 H (50.0-80.0) % Lymph % (Auto) 12.6 L (25.0-50.0) % [place] % (Auto) 5.3 (2.0-11.0) % Eos % (Auto) 1.0 (0.0-4.0) % Baso % (Auto) 0.4 (0.2-1.2) % Neut # (Auto) 9.1 H (1.8-7.7) x10^3/uL Lymph # (Auto) 1.4 (1.0-4.8) x10^3/uL [place] # (Auto) 0.6 (0.0-0.8) x10^3/uL Eos # (Auto) 0.1 (0.0-0.5) x10^3/uL Baso # (Auto) 0.1 (0.0-0.2) x10^3/uL Immature Gran # (Auto) 0.02 (0.00-0.07) x10^3/uL Sodium 137 (136-145) mmol/L Potassium 4.1 (3.5-5.1) mmol/L Chloride 100 (98-107) mmol/L Carbon Dioxide 31 (21-32) mmol/L Anion Gap 10.1 (5-15) mmol/L BUN 7 (7-18) mg/dL Creatinine 0.6 (0.55-1.02) mg/dL Est Cr Clr Drug Dosing 104.59 mL/min Estimated GFR (MDRD) > 60 Glucose 96 (70-99) mg/dL Calcium 8.2 L (8.5-10.1) mg/dL Corrected Calcium 9.6 (8.5-10.1) mg/dL Magnesium 1.1 L (1.8-2.4) mg/dL Total Bilirubin 0.5 (0.2-1.0) mg/dL AST 21 (15-37) U/L ALT 20 (14-59) U/L Alkaline Phosphatase 126 H (46-116) U/L Total Protein 5.1 L (6.4-8.2) g/dL Albumin 2.3 L (3.4-5.0) g/dL Globulin 2.8 Albumin/Globulin Ratio 0.82 Aman Results Last 24 Hours: Microbiology 11/09/21 18:35 Clostridioides difficile (PCR) - Final Stool / Feces Med Orders - Current: Current Medications Acetaminophen (Acetaminophen 325 Mg Tab) 650 mg PO Q4H PRN PRN Reason: Pain (Mild 1-3)/fever Last Admin: 11/11/21 03:22 Dose: 650 mg Documented by: Buspirone HCl (Buspirone 15 Mg Tab) 7.5 mg PO BID [facility] Last Admin: 11/11/21 08:04 Dose: 7.5 mg Documented by: Calcium Carbonate/Glycine (Calcium Carbonate 750 Mg Tab.Chew) 1,500 mg PO BID [facility] Last Admin: 11/11/21 08:07 Dose: 1,500 mg Documented by: Calcium Carbonate/Glycine (Calcium Carbonate 750 Mg Tab.Chew) 1,500 mg PO QID PRN PRN Reason: Heartburn Clindamycin HCl (Clindamycin Hcl 150 Mg Cap) 300 mg PO Q8H [facility] Last Admin: 11/11/21 05:37 Dose: 300 mg Documented by: Duloxetine HCl (Duloxetine 60 Mg Cap) 60 mg PO DAILY [facility] Last Admin: 11/11/21 08:04 Dose: 60 mg Documented by: Enoxaparin Sodium (Enoxaparin 40 Mg/0.4 Ml Syringe) 40 mg SUBCUT Q24H [facility] Last Admin: 11/10/21 12:02 Dose: 40 mg Documented by: Gabapentin (Gabapentin 100 Mg Cap) 100 mg PO BID [facility] Magnesium Sulfate 2 gm/ Premix 50 mls @ 25 mls/hr IV ONETIME ONE Stop: 11/11/21 10:54 Influenza Virus Vaccine (Pharmacy To Dose - Influenza & Pneumo Vaccines) 1 each IM ONETIME PRN PRN Reason: Other Lorazepam (Lorazepam 0.5 Mg Tab) 0.5 mg PO TID PRN PRN Reason: Anxiety Last Admin: 11/11/21 03:23 Dose: 0.5 mg Documented by: Losartan Potassium (Losartan 50 Mg Tab) 50 mg PO DAILY [facility] Last Admin: 11/11/21 08:06 Dose: 50 mg Documented by: Magnesium Chloride (Magnesium Chloride 64 Mg Tab.Er) 128 mg PO TID [facility] Melatonin (Melatonin 3 Mg Tab) 9 mg PO BEDTIME [facility] Last Admin: 11/10/21 19:55 Dose: 9 mg Documented by: Miconazole (Miconazole 2% Vaginal Crm 45 Gm Tube) 0 gm TOP BID [facility] Last Admin: 11/11/21 08:07 Dose: 1 applic Documented by: Omeprazole (Omeprazole 20 Mg Cap.Cr) 40 mg PO BEDTIME [facility] Last Admin: 11/10/21 19:54 Dose: 40 mg Documented by: Ondansetron HCl (Ondansetron 4 Mg Tab.Dis) 4 mg PO Q6H PRN PRN Reason: nausea, able to take PO Last Admin: 11/10/21 08:45 Dose: 4 mg Documented by: Ondansetron HCl (Ondansetron 4 Mg/2 Ml Sdv) 4 mg IV Q6H PRN PRN Reason: Nausea/Vomiting Potassium Chloride (Potassium Chloride 20 Meq Tab.Er) 20 meq PO BID [facility] Last Admin: 11/11/21 08:06 Dose: 20 meq Documented by: Spironolactone (Spironolactone 25 Mg Tab) 12.5 mg PO DAILY [facility] Last Admin: 11/11/21 08:05 Dose: 12.5 mg Documented by: Trazodone HCl (Trazodone 50 Mg Tab) 75 mg PO BEDTIME [facility] Last Admin: 11/10/21 19:53 Dose: 75 mg Documented by: Discontinued Medications Calcium Carbonate/Glycine (Calcium Carbonate 750 Mg Tab.Chew) 1,500 mg PO QID [facility] Last Admin: 11/09/21 11:27 Dose: 1,500 mg Documented by: Gabapentin (Gabapentin 100 Mg Cap) 100 mg PO NOW ONE Stop: 11/09/21 17:56 Last Admin: 11/09/21 18:47 Dose: 100 mg Documented by: Gabapentin (Gabapentin 100 Mg Cap) 100 mg PO BEDTIME [facility] Last Admin: 11/10/21 19:54 Dose: 100 mg Documented by: Magnesium Sulfate 2 gm/ Premix 50 mls @ 25 mls/hr IV ONETIME ONE Stop: 11/09/21 04:55 Last Admin: 11/09/21 03:07 Dose: 25 mls/hr Documented by: Potassium Chloride 10 meq/ (Premix) 50 mls @ 50 mls/hr IV ONETIME ONE Stop: 11/09/21 03:58 Last Admin: 11/09/21 03:37 Dose: 50 mls/hr Documented by: Sodium Chloride (Normal Saline) 1,000 mls @ 50 mls/hr IV ASDIRECTED [facility] Last Admin: 11/09/21 03:13 Dose: 50 mls/hr Documented by: Potassium Chloride 10 meq/ (Premix) 50 mls @ 50 mls/hr IV ONETIME ONE Stop: 11/09/21 05:46 Last Admin: 11/09/21 04:58 Dose: 50 mls/hr Documented by: Sodium Chloride (Normal Saline) 1,000 mls @ 125 mls/hr IV ASDIRECTED [facility] Last Admin: 11/09/21 05:01 Dose: 125 mls/hr Documented by: Potassium Chloride 10 meq/ (Premix) 50 mls @ 50 mls/hr IV Q1H [facility] Stop: 11/09/21 09:29 Last Admin: 11/09/21 09:54 Dose: 50 mls/hr Documented by: Influenza Virus Vaccine (Pharmacy To Dose - Influenza Vaccine) 1 each IM ONETIME ONE Stop: 11/09/21 08:05 Influenza Virus Vaccine (Flu Vacc [id number](6mos Up)/Pf 60 Mcg/0.5 Ml Syringe) 60 mcg IM .ONCE ONE Stop: 11/09/21 08:16 Last Admin: 11/09/21 21:43 Dose: Not Given Documented by: Influenza Virus Vaccine (Pharmacy To Dose - Influenza Vaccine) 1 each IM ONETIME PRN PRN Reason: Other Magnesium Chloride (Magnesium Chloride 64 Mg Tab.Er) 64 mg PO ONETIME ONE Stop: 11/09/21 04:50 Last Admin: 11/09/21 07:01 Dose: Not Given Documented by: Magnesium Chloride (Magnesium Chloride 64 Mg Tab.Er) 64 mg PO TID [facility] Last Admin: 11/11/21 08:05 Dose: 64 mg Documented by: Metoprolol Tartrate (Metoprolol Tartrate 25 Mg Tab) 25 mg PO ONETIME ONE Stop: 11/09/21 21:52 Last Admin: 11/09/21 21:59 Dose: 25 mg Documented by: Pneumococcal Polyvalent Vaccine (Pneumococcal 23-Valent Conjugate Vaccine 0.5 Ml Syringe) 25 mcg IM .ONCE ONE Stop: 11/09/21 08:05 Last Admin: 11/09/21 21:43 Dose: Not Given Documented by: - Exam General: Alert, Oriented, Cooperative, No Acute Distress HEENT: Mucous Membr. Moist/[place] Neck: Supple, Trachea Midline, No Thyromegaly. No: Lymphadenopathy Lungs: Clear to Auscultation, Normal Respiratory Effort Cardiovascular: Regular Rate, Regular Rhythm, No Murmurs GI/Abdominal Exam: Normal Bowel Sounds, Soft, Non-Tender, No Organomegaly, No Distention, No Mass Extremities: Normal Inspection (erythema is essentially resolved), Normal Capillary Refill, Pedal Edema (1+ bilaterally) Peripheral Pulses: 2+: Radial (L), Radial (R) Skin: Warm, Dry, Intact Neurological: No New Focal Deficit - Patient Data Lab Results Last 24 hrs: Laboratory Results - last 24 hr 11/11/21 11/11/21 Range/Units 06:27 06:27 WBC 11.2 H (4.0-10.0) x10^3/uL RBC 3.96 L (4.00-5.50) x10^6/uL Hgb 13.4 (12.0-16.0) g/dL Hct 39.9 (33.0-47.0) % MCV 100.8 H (78.0-93.0) fL MCH 33.8 H (26.0-32.0) pg MCHC 33.6 (32.0-36.0) g/dL RDW Coeff of Jacqueline 14.3 (10.0-15.0) % Plt Count 373 (130-400) x10^3/uL Immature Gran % (Auto) 0.20 (0.00-0.43) % Neut % (Auto) 80.5 H (50.0-80.0) % Lymph % (Auto) 12.6 L (25.0-50.0) % [place] % (Auto) 5.3 (2.0-11.0) % Eos % (Auto) 1.0 (0.0-4.0) % Baso % (Auto) 0.4 (0.2-1.2) % Neut # (Auto) 9.1 H (1.8-7.7) x10^3/uL Lymph # (Auto) 1.4 (1.0-4.8) x10^3/uL [place] # (Auto) 0.6 (0.0-0.8) x10^3/uL Eos # (Auto) 0.1 (0.0-0.5) x10^3/uL Baso # (Auto) 0.1 (0.0-0.2) x10^3/uL Immature Gran # (Auto) 0.02 (0.00-0.07) x10^3/uL Sodium 137 (136-145) mmol/L Potassium 4.1 (3.5-5.1) mmol/L Chloride 100 (98-107) mmol/L Carbon Dioxide 31 (21-32) mmol/L Anion Gap 10.1 (5-15) mmol/L BUN 7 (7-18) mg/dL Creatinine 0.6 (0.55-1.02) mg/dL Est Cr Clr Drug Dosing 104.59 mL/min Estimated GFR (MDRD) > 60 Glucose 96 (70-99) mg/dL Calcium 8.2 L (8.5-10.1) mg/dL Corrected Calcium 9.6 (8.5-10.1) mg/dL Magnesium 1.1 L (1.8-2.4) mg/dL Total Bilirubin 0.5 (0.2-1.0) mg/dL AST 21 (15-37) U/L ALT 20 (14-59) U/L Alkaline Phosphatase 126 H (46-116) U/L Total Protein 5.1 L (6.4-8.2) g/dL Albumin 2.3 L (3.4-5.0) g/dL Globulin 2.8 Albumin/Globulin Ratio 0.82 Result Diagrams: 11/11/21 06:27 11/11/21 06:27 Aman Results Last 24 hrs: Microbiology 11/09/21 18:35 Clostridioides difficile (PCR) - Final Stool / Feces Sepsis Event Note - Evaluation Sepsis Screening Result: No Definite Risk - Focused Exam Vital Signs: Vital Signs Temp Pulse Resp BP BP Pulse Ox 11/11/21 08:06 133/87 11/11/21 05:35 36.9 C 110 H 18 133/87 94 L 11/11/21 05:30 85 L 11/11/21 02:34 92 L 11/11/21 02:00 36.9 C 113 H 18 130/83 92 L 11/10/21 22:42 36.1 C 108 H 18 132/80 90 L - Problem List & Annotations (1) Cellulitis SNOMED Code(s): 450976881 Code(s): L03.90 - CELLULITIS, UNSPECIFIED Status: Acute Current Visit: Yes Qualifiers: Site of cellulitis: extremity Site of cellulitis of extremity: lower extremity Laterality: right Qualified Code(s): L03.115 - Cellulitis of right lower limb (2) Diarrhea SNOMED Code(s): 25825820 Code(s): R19.7 - DIARRHEA, UNSPECIFIED Status: Acute Current Visit: Yes (3) Hyponatremia SNOMED Code(s): 31803129 Code(s): E87.1 - HYPO-OSMOLALITY AND HYPONATREMIA Status: Acute Current Visit: Yes (4) Hypomagnesemia SNOMED Code(s): 450241669 Code(s): E83.42 - HYPOMAGNESEMIA Status: Acute Current Visit: Yes (5) Hypokalemia SNOMED Code(s): 89998403 Code(s): E87.6 - HYPOKALEMIA Status: Acute Current Visit: Yes (6) Edema of lower extremity SNOMED Code(s): 909188775 Code(s): R60.0 - LOCALIZED EDEMA Status: Chronic Current Visit: Yes (7) Alcohol use disorder SNOMED Code(s): 0513580 Code(s): AYO1360 - Status: Chronic Current Visit: Yes (8) Obesity SNOMED Code(s): 682078555, 495472227 Code(s): E66.9 - OBESITY, UNSPECIFIED Status: Chronic Current Visit: Yes Qualifiers: Obesity type: due to excess calories Obesity classification: adult class 2 (BMI 35 - 39.9) Serious obesity comorbidity presence: with serious comorbidity Body mass index: BMI 38.0-38.9 Qualified Code(s): E66.01 - Morbid (severe) obesity due to excess calories; Z68.38 - Body mass index [BMI] 38.0-38.9, adult (9) COPD (chronic obstructive pulmonary disease) SNOMED Code(s): 87145253 Code(s): J44.9 - CHRONIC OBSTRUCTIVE PULMONARY DISEASE, UNSPECIFIED Status: Chronic Current Visit: No Qualifiers: COPD type: unspecified COPD Qualified Code(s): J44.9 - Chronic obstructive pulmonary disease, unspecified (10) Anxiety and depression SNOMED Code(s): 914350918 Code(s): F41.9 - ANXIETY DISORDER, UNSPECIFIED; F32.A - DEPRESSION, UNSPECIFIED Status: Chronic Current Visit: No (11) Hypertension SNOMED Code(s): 58903937 Code(s): I10 - ESSENTIAL (PRIMARY) HYPERTENSION Status: Chronic Current Visit: No Qualifiers: Hypertension type: primary hypertension Qualified Code(s): I10 - Essential (primary) hypertension (12) Tobacco use SNOMED Code(s): 104887382 Code(s): Z72.0 - TOBACCO USE Status: Chronic Current Visit: No - Problem List Review Problem List Initiated/Reviewed/Updated: Yes - My Orders Last 24 Hours: My Active Orders 11/10/21 08:00 Spironolactone [Aldactone] 12.5 mg PO DAILY 11/10/21 20:00 Omeprazole 40 mg PO BEDTIME 11/11/21 08:55 Magnesium Sulfate/Water [Magnesium Sulfate in Water 2 GM/50 ML] 2 gm Premix Bag 1 bag IV ONETIME 11/11/21 09:00 Gabapentin [Neurontin] 100 mg PO BID Magnesium Chloride [Mag-64] 128 mg PO TID - Assessment Assessment:: 56 yo female hospital day #3 admitted with multiple electrolyte abnormalities. She is feeling a little better today but still weak. Magnesium back down this am. Rest of labs ok/improved. - Plan Plan:: #1 Cellulitis - Is essentially resolved. - Continue clindamycin to complete a 5 day course. #2 Diarrhea, resolved - Now resolved as well. - C. difficile negative. #3 Hyponatremia #4 Hypokalemia #5 Hypomagnesemia #6 Leg swelling - Everything normal today except magnesium, which is back down again. - Will do another 2 grams IV today. - Double oral supplementation dose as well. - Recheck labs in the am. - Continue aldactone. #7 Alcohol use disorder - Likely contributing to her above issues. - No evidence of withdrawal at this point. Will continue to monitor. - She is open to cutting back. #8 Obesity #9 Anxiety and depression #10 COPD #11 Hypertension #12 Tobacco use - Continue home medications. - Will increase gabapentin to BID. - Continue omeprazole. Patient will remain on acute today as her magnesium dropped again and she is at high risk for re-admission if this is not fully repleted prior to d/c. See detailed plans as above. Recheck labs in the am. PT and OT will work with her while acute but do not feel she needs swing bed. Code status is full - discussed on admission. Lovenox for VTE prophylaxis.
[2021-11-11] MEDS: Gabapentin 100 MG Cap PO SCH ×2 (09:50→20:21)
[2021-11-11] MEDS: Enoxaparin 40 MG/0.4 ML Syringe SUBCUT SCH (13:12)
[2021-11-11] MEDS: Melatonin 3 MG Tab PO SCH (20:21)
[2021-11-11] MEDS: traZODone 50 MG Tab PO SCH (20:22)
[2021-11-11] MEDS: Omeprazole 20 MG Cap.CR PO SCH (20:22)
[2021-11-12] MEDS: Acetaminophen 325 MG Tab PO PRN (03:44)
[2021-11-12] MEDS: Clindamycin HCl 150 MG Cap PO SCH ×2 (04:36→12:33)
[2021-11-12 07:09] LABS: ANION GAP 8.8 mmol/L (5-15); CHLORIDE,CL 100 mmol/L (98-107); SODIUM,NA 138 mmol/L (136-145)
[2021-11-12] MEDS: Potassium Chloride 20 MEQ Tab.ER PO SCH (08:22)
[2021-11-12] MEDS: Magnesium Chloride 64 MG Tab.ER PO SCH ×2 (08:22→12:32)
[2021-11-12] MEDS: DULoxetine 60 MG Cap PO SCH (08:22)
[2021-11-12] MEDS: Spironolactone 25 MG Tab PO SCH (08:23)
[2021-11-12] MEDS: busPIRone 15 MG Tab PO SCH (08:23)
[2021-11-12] MEDS: Gabapentin 100 MG Cap PO SCH (08:23)
[2021-11-12] MEDS: Losartan 50 MG Tab PO SCH (08:24)
[2021-11-12] MEDS: Miconazole 2% Vaginal Crm 45 GM Tube TOP SCH (08:26)
--- NOTE | 2021-11-12 08:44 | PCM.DCSUM1 ---
Discharge Summary - Hospital Course Brief History: Ms. Yo is a 56 yo female who was admitted with multiple electrolyte disturbances after presenting to the ER for evaluation of generalized weakness. - Discharge Data Discharge Date: 11/12/21 Discharge Disposition: Home, Self-Care 01 Condition: Good - Referral to Home Health Primary Care Physician: PCP None - Discharge Diagnosis/Problem(s) (1) Cellulitis SNOMED Code(s): 436372174 ICD Code: L03.90 - CELLULITIS, UNSPECIFIED Status: Acute Current Visit: Yes Qualifiers: Site of cellulitis: extremity Site of cellulitis of extremity: lower ext remity Laterality: right Qualified Code(s): L03.115 - Cellulitis of right lower limb (2) Diarrhea SNOMED Code(s): 12499734 ICD Code: R19.7 - DIARRHEA, UNSPECIFIED Status: Acute Current Visit: Yes (3) Hyponatremia SNOMED Code(s): 67979979 ICD Code: E87.1 - HYPO-OSMOLALITY AND HYPONATREMIA Status: Acute Current Visit: Yes (4) Hypomagnesemia SNOMED Code(s): 076275779 ICD Code: E83.42 - HYPOMAGNESEMIA Status: Acute Current Visit: Yes (5) Hypokalemia SNOMED Code(s): 55966190 ICD Code: E87.6 - HYPOKALEMIA Status: Acute Current Visit: Yes (6) Edema of lower extremity SNOMED Code(s): 170133075 ICD Code: R60.0 - LOCALIZED EDEMA Status: Chronic Current Visit: Yes (7) Alcohol use disorder SNOMED Code(s): 3902662 ICD Code: XXA6569 - Status: Chronic Current Visit: Yes (8) Obesity SNOMED Code(s): 419043077, 238478525 ICD Code: E66.9 - OBESITY, UNSPECIFIED Status: Chronic Current Visit: Yes Qualifiers: Obesity type: due to excess calories Obesity classification: adult class 2 (BMI 35 - 39.9) Serious obesity comorbidity presence: with serious comorbidity Body mass index: BMI 38.0-38.9 Qualified Code(s): E66.01 - Morbid (severe) obesity due to excess calories; Z68.38 - Body mass index [BMI] 38.0-38.9, adult (9) COPD (chronic obstructive pulmonary disease) SNOMED Code(s): 81473273 ICD Code: J44.9 - CHRONIC OBSTRUCTIVE PULMONARY DISEASE, UNSPECIFIED Status: Chronic Current Visit: No Qualifiers: COPD type: unspecified COPD Qualified Code(s): J44.9 - Chronic obstructive pulmonary disease, unspecified (10) Anxiety and depression SNOMED Code(s): 912774766 ICD Code: F41.9 - ANXIETY DISORDER, UNSPECIFIED; F32.A - DEPRESSION, UNSPECIFIED Status: Chronic Current Visit: No (11) Hypertension SNOMED Code(s): 12063911 ICD Code: I10 - ESSENTIAL (PRIMARY) HYPERTENSION Status: Chronic Current Visit: No Qualifiers: Hypertension type: primary hypertension Qualified Code(s): I10 - Essential (primary) hypertension (12) Tobacco use SNOMED Code(s): 077765744 ICD Code: Z72.0 - TOBACCO USE Status: Chronic Current Visit: No - Patient Summary/Data Operative Procedure(s) Performed: none Complications: none Consults: Consultations 11/10/21 07:40 OT Evaluation and Treatment [CONS] Routine PT Evaluation and Treatment [CONS] Routine Labs Pending at D/C: none Recommended Follow-up Testing/Procedures: none Planned Operative Procedure(s) after DC: none Hospital Course: The patient was admitted and given electrolyte repletion. She was also noted to have cellulitis of her right leg for which she was started on clindamycin due to her multiple allergies. This has improved significantly and she is no longer having any redness. She is still having pain and swelling in her legs. She has been started on aldactone in hopes this will help her retain the magnesium and potassium she has kept losing as well as help her leg swelling. She has noted benefit from increasing her gabapentin to BID. She has been up ambulating with PT and this has gone well; they do not feel she needs swing bed. She was also started on omeprazole to help with overnight coughing and this has been successful. She is feeling well this morning and is ready to go home. She has also been advised to cut back on her alcohol use and the importance of taking all doses of her electrolyte replacements at home was reviewed. She will follow- up in clinic in about 1 week. - Patient Instructions Diet: Usual Diet as Tolerated, No Alcoholic Beverages Activity: As Tolerated Showering/Bathing: May Shower Notify Provider of: Fever, Increased Pain, Swelling and Redness, Nausea and/or Vomiting - Discharge Plan *PRESCRIPTION DRUG MONITORING PROGRAM REVIEWED*: No *COPY OF PRESCRIPTION DRUG MONITORING REPORT IN PATIENT FAVIO: No Prescriptions/Med Rec: Spironolactone [Aldactone] 12.5 mg PO DAILY #90 tablet clindamycin HCL [Cleocin] 300 mg PO Q8H #5 cap Omeprazole 40 mg PO BEDTIME #30 cap.cr Home Medications: Home Meds Acetaminophen [Acetaminophen Extra Strength] 1,000 mg PO Q6H PRN 09/30/21 [History] LORazepam [Ativan] 0.5 mg PO TID PRN 09/30/21 [History] Melatonin 10 mg PO BEDTIME 09/30/21 [History] Nystatin 1 applic TOP BID PRN 09/30/21 [History] DULoxetine [Cymbalta] 60 mg PO DAILY #90 cap 10/01/21 [Rx] Losartan [Cozaar] 50 mg PO DAILY #30 tab 10/01/21 [Rx] busPIRone HCl [Buspirone HCl] 7.5 mg PO BID #30 10/01/21 [Rx] traZODone HCl [Trazodone HCl] 75 mg PO BEDTIME #45 10/01/21 [Rx] Calcium Carbonate [Tums] 1,500 mg PO QID PRN 11/09/21 [History] Potassium Chloride [Klor-Con M20] 20 meq PO BID 11/09/21 [History] Gabapentin [Neurontin] 100 mg PO BID cap 11/12/21 [Rx] Magnesium Chloride [Mag-64] 128 mg PO TID tab.er 11/12/21 [Rx] Omeprazole 40 mg PO BEDTIME #30 cap.cr 11/12/21 [Rx] Spironolactone [Aldactone] 12.5 mg PO DAILY #90 tablet 11/12/21 [Rx] clindamycin HCL [Cleocin] 300 mg PO Q8H #5 cap 11/12/21 [Rx] Forms: ED Department Discharge Referrals: PCP,None [Primary Care Provider] - - Discharge Summary/Plan Comment DC Time >30 min.: No Total # of Minutes for Discharge Time: 20 - General Info Date of Service: 11/12/21 Subjective Update: Patient is feeling well this morning and is ready to go home. Only concern is lower leg pain but she does note relief with the BID gabapentin. No redness. Cough about the same. No fever. Has been up and ambulatory without any issues. - Review of Systems General: Reports: No Symptoms HEENT: Reports: No Symptoms Pulmonary: Reports: No Symptoms Cardiovascular: Reports: No Symptoms Gastrointestinal: Reports: No Symptoms Genitourinary: Reports: No Symptoms Musculoskeletal: Reports: Leg Pain Skin: Reports: No Symptoms Neurological: Reports: No Symptoms Psychiatric: Reports: No Symptoms - Patient Data Vitals - Most Recent: Last Vital Signs Temp 36.4 C 11/12/21 03:37 Pulse 109 H 11/12/21 04:42 Resp 14 11/12/21 03:37 BP 130/90 11/12/21 08:24 Pulse Ox 97 11/12/21 04:42 Weight - Most Recent: 113.081 kg I&O - Last 24 hours: Intake & Output 11/11/21 11/12/21 11/12/21 22:59 06:59 14:59 Intake Total 170 0 Output Total 750 1800 Balance -580 -1800 Lab Results - Last 24 hrs: Laboratory Results - last 24 hr 11/12/21 11/12/21 Range/Units 06:19 06:19 WBC 7.6 (4.0-10.0) x10^3/uL RBC 3.91 L (4.00-5.50) x10^6/uL Hgb 13.2 (12.0-16.0) g/dL Hct 39.8 (33.0-47.0) % MCV 101.8 H (78.0-93.0) fL MCH 33.8 H (26.0-32.0) pg MCHC 33.2 (32.0-36.0) g/dL RDW Coeff of Jacqueline 14.3 (10.0-15.0) % Plt Count 344 (130-400) x10^3/uL Immature Gran % (Auto) 0.30 (0.00-0.43) % Neut % (Auto) 74.8 (50.0-80.0) % Lymph % (Auto) 16.0 L (25.0-50.0) % [place] % (Auto) 6.9 (2.0-11.0) % Eos % (Auto) 1.3 (0.0-4.0) % Baso % (Auto) 0.7 (0.2-1.2) % Neut # (Auto) 5.7 (1.8-7.7) x10^3/uL Lymph # (Auto) 1.2 (1.0-4.8) x10^3/uL [place] # (Auto) 0.5 (0.0-0.8) x10^3/uL Eos # (Auto) 0.1 (0.0-0.5) x10^3/uL Baso # (Auto) 0.1 (0.0-0.2) x10^3/uL Immature Gran # (Auto) 0.02 (0.00-0.07) x10^3/uL Sodium 138 (136-145) mmol/L Potassium 4.8 (3.5-5.1) mmol/L Chloride 100 (98-107) mmol/L Carbon Dioxide 34 H (21-32) mmol/L Anion Gap 8.8 (5-15) mmol/L BUN 6 L (7-18) mg/dL Creatinine 0.6 (0.55-1.02) mg/dL Est Cr Clr Drug Dosing 104.59 mL/min Estimated GFR (MDRD) > 60 Glucose 91 (70-99) mg/dL Calcium 8.3 L (8.5-10.1) mg/dL Magnesium 1.4 L (1.8-2.4) mg/dL Med Orders - Current: Current Medications Acetaminophen (Acetaminophen 325 Mg Tab) 650 mg PO Q4H PRN PRN Reason: Pain (Mild 1-3)/fever Last Admin: 11/12/21 03:44 Dose: 650 mg Documented by: Buspirone HCl (Buspirone 15 Mg Tab) 7.5 mg PO BID [facility] Last Admin: 11/12/21 08:23 Dose: 7.5 mg Documented by: Calcium Carbonate/Glycine (Calcium Carbonate 750 Mg Tab.Chew) 1,500 mg PO BID [facility] Last Admin: 11/11/21 20:25 Dose: 1,500 mg Documented by: Calcium Carbonate/Glycine (Calcium Carbonate 750 Mg Tab.Chew) 1,500 mg PO QID PRN PRN Reason: Heartburn Clindamycin HCl (Clindamycin Hcl 150 Mg Cap) 300 mg PO Q8H [facility] Last Admin: 11/12/21 04:36 Dose: 300 mg Documented by: Duloxetine HCl (Duloxetine 60 Mg Cap) 60 mg PO DAILY [facility] Last Admin: 11/12/21 08:22 Dose: 60 mg Documented by: Enoxaparin Sodium (Enoxaparin 40 Mg/0.4 Ml Syringe) 40 mg SUBCUT Q24H [facility] Last Admin: 11/11/21 13:12 Dose: 40 mg Documented by: Gabapentin (Gabapentin 100 Mg Cap) 100 mg PO BID [facility] Last Admin: 11/12/21 08:23 Dose: 100 mg Documented by: Influenza Virus Vaccine (Pharmacy To Dose - Influenza & Pneumo Vaccines) 1 each IM ONETIME PRN PRN Reason: Other Lorazepam (Lorazepam 0.5 Mg Tab) 0.5 mg PO TID PRN PRN Reason: Anxiety Last Admin: 11/11/21 12:01 Dose: 0.5 mg Documented by: Losartan Potassium (Losartan 50 Mg Tab) 50 mg PO DAILY [facility] Last Admin: 11/12/21 08:24 Dose: 50 mg Documented by: Magnesium Chloride (Magnesium Chloride 64 Mg Tab.Er) 128 mg PO TID [facility] Last Admin: 11/12/21 08:22 Dose: 128 mg Documented by: Melatonin (Melatonin 3 Mg Tab) 9 mg PO BEDTIME [facility] Last Admin: 11/11/21 20:21 Dose: 9 mg Documented by: Miconazole (Miconazole 2% Vaginal Crm 45 Gm Tube) 0 gm TOP BID [facility] Last Admin: 11/12/21 08:26 Dose: 1 applic Documented by: Omeprazole (Omeprazole 20 Mg Cap.Cr) 40 mg PO BEDTIME [facility] Last Admin: 11/11/21 20:22 Dose: 40 mg Documented by: Ondansetron HCl (Ondansetron 4 Mg Tab.Dis) 4 mg PO Q6H PRN PRN Reason: nausea, able to take PO Last Admin: 11/10/21 08:45 Dose: 4 mg Documented by: Ondansetron HCl (Ondansetron 4 Mg/2 Ml Sdv) 4 mg IV Q6H PRN PRN Reason: Nausea/Vomiting Potassium Chloride (Potassium Chloride 20 Meq Tab.Er) 20 meq PO BID [facility] Last Admin: 11/12/21 08:22 Dose: 20 meq Documented by: Spironolactone (Spironolactone 25 Mg Tab) 12.5 mg PO DAILY [facility] Last Admin: 11/12/21 08:23 Dose: 12.5 mg Documented by: Trazodone HCl (Trazodone 50 Mg Tab) 75 mg PO BEDTIME [facility] Last Admin: 11/11/21 20:22 Dose: 75 mg Documented by: Discontinued Medications Calcium Carbonate/Glycine (Calcium Carbonate 750 Mg Tab.Chew) 1,500 mg PO QID [facility] Last Admin: 11/09/21 11:27 Dose: 1,500 mg Documented by: Gabapentin (Gabapentin 100 Mg Cap) 100 mg PO NOW ONE Stop: 11/09/21 17:56 Last Admin: 11/09/21 18:47 Dose: 100 mg Documented by: Gabapentin (Gabapentin 100 Mg Cap) 100 mg PO BEDTIME [facility] Last Admin: 11/10/21 19:54 Dose: 100 mg Documented by: Magnesium Sulfate 2 gm/ Premix 50 mls @ 25 mls/hr IV ONETIME ONE Stop: 11/09/21 04:55 Last Admin: 11/09/21 03:07 Dose: 25 mls/hr Documented by: Potassium Chloride 10 meq/ (Premix) 50 mls @ 50 mls/hr IV ONETIME ONE Stop: 11/09/21 03:58 Last Admin: 11/09/21 03:37 Dose: 50 mls/hr Documented by: Sodium Chloride (Normal Saline) 1,000 mls @ 50 mls/hr IV ASDIRECTED [facility] Last Admin: 11/09/21 03:13 Dose: 50 mls/hr Documented by: Potassium Chloride 10 meq/ (Premix) 50 mls @ 50 mls/hr IV ONETIME ONE Stop: 11/09/21 05:46 Last Admin: 11/09/21 04:58 Dose: 50 mls/hr Documented by: Sodium Chloride (Normal Saline) 1,000 mls @ 125 mls/hr IV ASDIRECTED [facility] Last Admin: 11/09/21 05:01 Dose: 125 mls/hr Documented by: Potassium Chloride 10 meq/ (Premix) 50 mls @ 50 mls/hr IV Q1H [facility] Stop: 11/09/21 09:29 Last Admin: 11/09/21 09:54 Dose: 50 mls/hr Documented by: Magnesium Sulfate 2 gm/ Premix 50 mls @ 25 mls/hr IV ONETIME ONE Stop: 11/11/21 10:54 Last Admin: 11/11/21 09:50 Dose: 25 mls/hr Documented by: Influenza Virus Vaccine (Pharmacy To Dose - Influenza Vaccine) 1 each IM ONETIME ONE Stop: 11/09/21 08:05 Influenza Virus Vaccine (Flu Vacc [id number](6mos Up)/Pf 60 Mcg/0.5 Ml Syringe) 60 mcg IM .ONCE ONE Stop: 11/09/21 08:16 Last Admin: 11/09/21 21:43 Dose: Not Given Documented by: Influenza Virus Vaccine (Pharmacy To Dose - Influenza Vaccine) 1 each IM ONETIME PRN PRN Reason: Other Magnesium Chloride (Magnesium Chloride 64 Mg Tab.Er) 64 mg PO ONETIME ONE Stop: 11/09/21 04:50 Last Admin: 11/09/21 07:01 Dose: Not Given Documented by: Magnesium Chloride (Magnesium Chloride 64 Mg Tab.Er) 64 mg PO TID [facility] Last Admin: 11/11/21 08:05 Dose: 64 mg Documented by: Metoprolol Tartrate (Metoprolol Tartrate 25 Mg Tab) 25 mg PO ONETIME ONE Stop: 11/09/21 21:52 Last Admin: 11/09/21 21:59 Dose: 25 mg Documented by: Pneumococcal Polyvalent Vaccine (Pneumococcal 23-Valent Conjugate Vaccine 0.5 Ml Syringe) 25 mcg IM .ONCE ONE Stop: 11/09/21 08:05 Last Admin: 11/09/21 21:43 Dose: Not Given Documented by: - Exam General: Reports: Alert, Oriented, Cooperative, No Acute Distress HEENT: Reports: Pupils Equal, Pupils Reactive, Mucous Membr. Moist/[place]: Reports: Supple, Trachea Midline, No Thyromegaly. Denies: Lymphadenopathy Lungs: Reports: Clear to Auscultation, Normal Respiratory Effort Cardiovascular: Reports: Regular Rate, Regular Rhythm, No Murmurs GI/Abdominal Exam: Normal Bowel Sounds, Soft, Non-Tender, No Organomegaly, No Distention, No Mass Extremities: Normal Inspection, Normal Range of Motion, Non-Tender, Normal Capillary Refill, Pedal Edema (1+ bilateral pitting edema) Skin: Reports: Warm, Dry, Intact Neurological: Reports: No New Focal Deficit
[2021-11-12] MEDS ORDERED: Pneumococcal 23-Valent Conjugate Vaccine 0.5 ML Syringe IM ONE (10:00)
--- NOTE | 2021-11-12 12:00 | PCM.SN.2 ---
- Free Text/Narrative Note: Did not include in her d/c summary that she has had nocturnal hypoxia. This is presumed to be ZHANNA. Therefore, she will not be discharged on oxygen but will be referred to sleep medicine for evaluation.
[2021-11-12] MEDS: Enoxaparin 40 MG/0.4 ML Syringe SUBCUT SCH (12:33)
== END 2021-11-12 13:20 | disposition home or self-care (01) | DRG 603 ==
LOC: VM.ED 01:58 → VM.MS 04:48 → OBSVTOIN 11-10 07:41
PROVIDERS: ADMIT Family Medicine; ATTEND Family Medicine
DX: L03.115 Cellulitis of right lower limb (principal); E87.1 Hypo-osmolality and hyponatremia; R19.7 Diarrhea, unspecified; E83.42 Hypomagnesemia; E87.6 Hypokalemia; R60.0 Localized edema; J44.9 Chronic obstructive pulmonary disease, unspecified; F41.9 Anxiety disorder, unspecified; F32.A Depression, unspecified; I10 Essential (primary) hypertension; F17.210 Nicotine dependence, cigarettes, uncomplicated; R07.9 Chest pain, unspecified; B35.3 Tinea pedis; Z20.822 Contact with and (suspected) exposure to COVID-19; E66.9 Obesity, unspecified; Z72.89 Other problems related to lifestyle; Z68.38 Body mass index [BMI] 38.0-38.9, adult; Z79.899 Other long term (current) drug therapy; Z98.42 Cataract extraction status, left eye; Z98.41 Cataract extraction status, right eye; Z90.49 Acquired absence of other specified parts of digestive tract; Z90.710 Acquired absence of both cervix and uterus; Z98.890 Other specified postprocedural states; Z87.01 Personal history of pneumonia (recurrent)
CPT/HCPCS: 0241U; 36415; 71045; 80048; 80053; 83690; 83735; 84145; 84484; 85025; 85379; 87493; 90686; 90732; 93005; 96365; 96366; 96367; 96372; 96376; 97116-GP; 97162-GP; 97165-GO; 99285-25; A9270-GY; G0378; J1650; J3475; J3480; J7030

== ENCOUNTER 2021-11-20 17:57 | Inpatient (IN) | payer MEDICAID ==
[2021-11-20] MEDS ORDERED: Sodium Chloride 0.9% 10 ML Syringe FLUSH PRN (18:16)
[2021-11-20] MEDS ORDERED: Furosemide 40 MG/4 ML VIAL IV ONE (18:16)
--- NOTE | 2021-11-20 18:56 | CR ---
[id number] RAD/RAD Chest PA or AP 1V EXAM: FRONTAL CHEST INDICATION: Shortness of breath. COMPARISON: November 09, 2021. DISCUSSION: Mild elevation of the right hemidiaphragm is new relative to the previous study. Sensitivity limited by portable technique and body habitus, but no infiltrates are identified. Mild cardiomegaly without evidence of congestive heart failure. Chronic right posterior rib fractures. IMPRESSION: 1. Development of right hemidiaphragm elevation. No other acute findings. Derick Riley MD 11/20/21 [id number] Thank you for allowing us to participate in the care of your patient.
[2021-11-20 18:57] LABS: CHLORIDE,CL 92 mmol/L (98-107); SODIUM,NA 133 mmol/L (136-145)
[2021-11-20 18:58] LABS: ANION GAP 13.9 mmol/L (5-15)
[2021-11-20] MEDS ORDERED: Iopamidol 755 Mg/ML 100 ML Bottle IVPUSH ONE ×2 (20:29→20:31)
[2021-11-20 20:38] LABS: BARBITURATE SCREEN,URINE NEGATIVE (NEGATIVE); METHAMPHETAMINE SCREEN, URINE NEGATIVE (NEGATIVE); THC SCREEN,URINE 50 NG/ML NEGATIVE (NEGATIVE)
[2021-11-20 20:39] LABS: BUPRENORPHINE SCREEN,URINE NEGATIVE (NEGATIVE)
[2021-11-20 20:43] LABS: BENZODIAZEPINES SCREEN,URINE POSITIVE (NEGATIVE)
--- NOTE | 2021-11-20 20:59 | EDM.PDOC ---
ED HPI GENERAL MEDICAL PROBLEM - General Chief Complaint: Lower Extremity Injury/Pain Stated Complaint: lower leg swelling, cold feet, inability to stand Time Seen by Provider: 11/20/21 18:16 Source of Information: Reports: Patient, EMS, EMS Notes Reviewed, Old Records History Limitations: Reports: No Limitations - History of Present Illness INITIAL COMMENTS - FREE TEXT/NARRATIVE: Patient returns to the Ed for lower leg swelling. She was recently hospitalized for etoh use, lower leg swelling. She was sent home on spironlactone and lasix for the last two days she has been taking it, but has spent the last 14 hours sitting in her recliner, unable to stand or walk due to leg swelling. Has been urinating in her chair. Called EMS due to this. legs are usually swollen, but not this bad. Denies it being cold in her apartment, has not been outside. EMS states it was not cold in there either. Feet has been getting gradually more cold over time, but they feel numb now. Some falls but no injury due to difficulty walking. Daily heavy smoker, drinks four mixed drinks a day, last one this morning Bilateral Leg Pain Score (Numeric/FACES): 7 - Related Data Allergies Allergy/AdvReac Type Severity Reaction Status Date / Time cefazolin Allergy Hives Verified 11/20/21 18:13 morphine Allergy Difficulty Verified 11/20/21 18:13 Breathing Penicillins Allergy Cannot Verified 11/20/21 18:13 Remember povidone-iodine Allergy Rash Verified 11/20/21 18:13 Home Meds: Home Meds Acetaminophen [Acetaminophen Extra Strength] 1,000 mg PO Q6H PRN 09/30/21 [History] LORazepam [Ativan] 0.5 mg PO TID PRN 09/30/21 [History] Melatonin 10 mg PO BEDTIME 09/30/21 [History] Nystatin 1 applic TOP BID PRN 09/30/21 [History] DULoxetine [Cymbalta] 60 mg PO DAILY #90 cap 10/01/21 [Rx] Losartan [Cozaar] 50 mg PO DAILY #30 tab 10/01/21 [Rx] busPIRone HCl [Buspirone HCl] 7.5 mg PO BID #30 10/01/21 [Rx] traZODone HCl [Trazodone HCl] 75 mg PO BEDTIME #45 10/01/21 [Rx] Calcium Carbonate [Tums] 1,500 mg PO QID PRN 11/09/21 [History] Potassium Chloride [Klor-Con M20] 20 meq PO BID 11/09/21 [History] Gabapentin [Neurontin] 100 mg PO BID cap 11/12/21 [Rx] Omeprazole 40 mg PO BEDTIME #30 cap.cr 11/12/21 [Rx] Spironolactone [Aldactone] 12.5 mg PO DAILY #90 tablet 11/12/21 [Rx] Magnesium Chloride [Mag-64] 128 mg PO BID 11/20/21 [History] Furosemide 40 mg PO DAILY 11/21/21 [History] Past Medical History HEENT History: Reports: None Cardiovascular History: Reports: Hypertension Respiratory History: Reports: COPD Gastrointestinal History: Reports: Diverticulosis Genitourinary History: Reports: None Musculoskeletal History: Reports: Arthritis Neurological History: Reports: None Psychiatric History: Reports: Anxiety, Depression, Panic Attack Endocrine/Metabolic History: Reports: Obesity/BMI 30+ Hematologic History: Reports: None Oncologic (Cancer) History: Reports: None Dermatologic History: Reports: None - Past Surgical History HEENT Surgical History: Reports: Cataract Surgery GI Surgical History: Reports: Cholecystectomy, Colonoscopy, Other (See Below) Other GI Surgeries/Procedures: Colon resection Female Surgical History: Reports: Section, Hysterectomy Neurological Surgical History: Reports: Lumbar Spine Musculoskeletal Surgical History: Reports: Knee Replacement, Other (See Below) Social & Family History - Family History Family Medical History: No Pertinent Family History Oncologic: Reports: Lung - Tobacco Use Tobacco Use Status *Q: Current Every Day Tobacco User Years of Tobacco use: 30 Packs/Tins Daily: 0.5 - Caffeine Use Caffeine Use: Reports: Soda, Tea - Alcohol Use Days Per Week of Alcohol Use: 7 Number of Drinks Per Day: 4 Total Drinks Per Week: 28 - Recreational Drug Use Recreational Drug Use: No - Living Situation & Occupation Living situation: Reports: , Alone Occupation: Disabled Review of Systems - Review of Systems Review Of Systems: See Below Constitutional: Reports: Weakness Eyes: Reports: No Symptoms Ears: Reports: No Symptoms Nose: Reports: No Symptoms Mouth/Throat: Reports: No Symptoms Respiratory: Reports: Cough (chronic, due to smoking) Cardiovascular: Reports: No Symptoms, Edema GI/Abdominal: Reports: No Symptoms Musculoskeletal: Denies: Back Pain Skin: Reports: No Symptoms Neurological: Reports: Difficulty Walking (due t leg swelling) ED EXAM, GENERAL - Physical Exam Exam: See Below Exam Limited By: No Limitations General Appearance: Alert, WD/WN, No Apparent Distress, Other (smells of cigarette smoke, alcohol and urine. ) Eye Exam: Bilateral Eye: EOMI, Normal Inspection, PERRL Ears: Normal External Exam, Normal Canal Nose: Normal Inspection Throat/Mouth: Other (tongue beefy red, no cheliosis) Head: Atraumatic Neck: Normal Inspection Respiratory/Chest: No Respiratory Distress, Crackles (bases only) Cardiovascular: Regular Rate, Rhythm, Tachycardia GI/Abdominal: Normal Bowel Sounds, Other (obese). No: Rigid, Rebound Extremities: Pedal Edema (3+ piting to the knees circumferential, posterior thighs to mid thigh. feet old, erythematous, difficult to palpation a pulse. NOrmal motion of toes. ) Neurological: Alert, Oriented #1 Interpretation EKG Date: 11/20/21 Time: 18:34 Rhythm: NSR Rate (Beats/Min): 107 [place]: Normal P-Wave: Present ST-T: Other (nonspecific) QT: Prolonged (borderline 479) EKG Interpretation Comments: [facility] Course - Vital Signs Last Recorded V/S: Last Vital Signs Temp 36.7 C 11/20/21 22:32 Pulse 93 11/20/21 22:32 Resp 20 11/20/21 22:32 BP 139/84 11/20/21 22:32 Pulse Ox 91 L 11/20/21 22:32 - Orders/Labs/Meds Orders: Active Orders 24 hr Category Date Time Status Insert Urinary Catheter [OM.PC] Q24H Care 11/20/21 18:15 Ordered Urinary Catheter Assessment [RC] ASDIRECTED Care 11/20/21 18:14 Active Ang Abdomen Aorta w Bi Runoff [CT] Stat Exams 11/20/21 19:38 Ordered CULTURE BLOOD [BC] Stat Lab 11/20/21 20:28 Received CULTURE BLOOD [BC] Stat Lab 11/20/21 20:32 Received Sodium Chloride 0.9% [Saline Flush] Med 11/20/21 18:16 Active 10 ml FLUSH ASDIRECTED PRN Sulfamethoxazole/Trimethoprim [Septra DS] Med 11/20/21 21:15 Active 1 tab PO BID Blood Culture x2 Reflex Set [OM.PC] Stat Ot 11/20/21 19:39 Ordered Peripheral IV Insertion Adult [OM.PC] Routine Oth 11/20/21 18:16 Ordered Medication Orders Acetaminophen (Acetaminophen 325 Mg Tab) 650 mg PO Q4H PRN PRN Reason: Pain (Mild 1-3)/fever Hydrocodone Bitart/Acetaminophen (Acetaminophen/Hydrocodone 325-5 Mg Tab) 1 tab PO Q4H PRN PRN Reason: Pain (moderate 4-6) Albuterol (Albuterol 0.083% 2.5 Mg/3 Ml Neb Soln) 2.5 mg NEB Q4H PRN PRN Reason: Dyspnea Buspirone HCl (Buspirone 15 Mg Tab) 7.5 mg PO BID [facility] Calcium Carbonate/Glycine (Calcium Carbonate 750 Mg Tab.Chew) 1,500 mg PO QID PRN PRN Reason: Heartburn Docusate Sodium (Docusate Sodium 100 Mg Cap) 100 mg PO BID PRN PRN Reason: Constipation Duloxetine HCl (Duloxetine 60 Mg Cap) 60 mg PO DAILY [facility] Enoxaparin Sodium (Enoxaparin 40 Mg/0.4 Ml Syringe) 40 mg SUBCUT DAILY [facility] Folic Acid (Folic Acid 1 Mg Tab) 1 mg PO DAILY [facility] Last Admin: 11/20/21 23:22 Dose: 1 mg Documented by: KATHIE Furosemide (Furosemide 40 Mg/4 Ml Vial) 40 mg IV DAILY [facility] Gabapentin (Gabapentin 100 Mg Cap) 100 mg PO BID [facility] Hydromorphone HCl (Hydromorphone 0.5 Mg/0.5 Ml Syringe) 0.5 mg IVPUSH Q2H PRN PRN Reason: Pain (severe 7-10) Promethazine HCl 12.5 mg/ (Sodium Chloride) 100 mls @ 200 mls/hr IV Q6H PRN PRN Reason: Nausea/Vomiting Ibuprofen (Ibuprofen 200 Mg Tab) 600 mg PO Q6H PRN PRN Reason: Pain (mild 1-3) Lorazepam (Lorazepam 0.5 Mg Tab) 0.5 mg PO TID PRN PRN Reason: Anxiety Losartan Potassium (Losartan 50 Mg Tab) 50 mg PO DAILY [facility] Magnesium Chloride (Magnesium Chloride 64 Mg Tab.Er) 128 mg PO BID [facility] Melatonin (Melatonin 3 Mg Tab) 6 mg PO BEDTIME [facility] Nicotine (Nicotine 21 Mg/24 Hr Patch) 21 mg TRDERM DAILY [facility] Last Admin: 11/20/21 23:22 Dose: Not Given Documented by: KATHIE Non-Formulary Medication (Nystatin [Nystatin]) 1 applic TOP BID PRN PRN Reason: Rash Omeprazole (Omeprazole 20 Mg Cap.Cr) 40 mg PO BEDTIME [facility] Ondansetron HCl (Ondansetron 4 Mg Tab.Dis) 4 mg PO Q6H PRN PRN Reason: nausea, able to take PO Potassium Chloride (Potassium Chloride 20 Meq Tab.Er) 20 meq PO BIDMEALS [facility] Sodium Chloride (Sodium Chloride 0.9% 10 Ml Syringe) 10 ml FLUSH ASDIRECTED PRN PRN Reason: Keep Vein Open Spironolactone (Spironolactone 25 Mg Tab) 12.5 mg PO DAILY [facility] Thiamine HCl (Thiamine 100 Mg Tab) 100 mg PO BEDTIME [facility] Trazodone HCl (Trazodone 50 Mg Tab) 75 mg PO BEDTIME [facility] Trimethoprim/Sulfamethoxazole (Sulfamethoxazole/Trimethoprim 800-160 Mg Tab) 1 tab PO BID [facility] Labs: Laboratory Tests 11/20/21 11/20/21 11/20/21 Range/Units 18:24 18:24 18:24 WBC 14.4 H (4.0-10.0) x10^3/uL RBC 4.64 (4.00-5.50) x10^6/uL Hgb 15.7 D (12.0-16.0) g/dL Hct 45.7 (33.0-47.0) % MCV 98.5 H D (78.0-93.0) fL MCH 33.8 H (26.0-32.0) pg MCHC 34.4 (32.0-36.0) g/dL RDW Coeff of Jacqueline 14.5 (10.0-15.0) % Plt Count 432 H D (130-400) x10^3/uL Immature Gran % (Auto) 0.20 (0.00-0.43) % Neut % (Auto) 81.9 H (50.0-80.0) % Lymph % (Auto) 13.0 L (25.0-50.0) % [place] % (Auto) 3.9 (2.0-11.0) % Eos % (Auto) 0.6 (0.0-4.0) % Baso % (Auto) 0.4 (0.2-1.2) % Neut # (Auto) 11.8 H (1.8-7.7) x10^3/uL Lymph # (Auto) 1.9 (1.0-4.8) x10^3/uL [place] # (Auto) 0.6 (0.0-0.8) x10^3/uL Eos # (Auto) 0.1 (0.0-0.5) x10^3/uL Baso # (Auto) 0.1 (0.0-0.2) x10^3/uL Immature Gran # (Auto) 0.03 (0.00-0.07) x10^3/uL D-Dimer, Quantitative 0.44 (<=0.58) mg/LFEU Sodium 133 L (136-145) mmol/L Potassium 4.9 (3.5-5.1) mmol/L Chloride 92 L (98-107) mmol/L Carbon Dioxide 32 (21-32) mmol/L Anion Gap 13.9 (5-15) mmol/L BUN 15 (7-18) mg/dL Creatinine 0.8 (0.55-1.02) mg/dL Est Cr Clr Drug Dosing TNP Estimated GFR (MDRD) > 60 Glucose 102 H (70-99) mg/dL Lactic Acid (0.4-2.0) mmol/L Calcium 8.6 (8.5-10.1) mg/dL Corrected Calcium 9.6 (8.5-10.1) mg/dL Magnesium 1.4 L (1.8-2.4) mg/dL Total Bilirubin 0.3 (0.2-1.0) mg/dL AST 54 H (15-37) U/L ALT 43 (14-59) U/L Alkaline Phosphatase 158 H (46-116) U/L Ammonia (19-54) ug/dL Creatine Kinase 185 (26-192) U/L Troponin I High Sens 13 (<=51) ng/L NT-Pro-B Natriuret Pep 83 (<=125) pg/mL Total Protein 6.7 (6.4-8.2) g/dL Albumin 2.8 L (3.4-5.0) g/dL Globulin 3.9 Albumin/Globulin Ratio 0.72 Procalcitonin (0.1-0.50) ng/mL Urine Color (YELLOW) Urine Appearance (CLEAR) Urine pH (5.0-8.0) Ur Specific [place] Urine Protein (NEGATIVE) mg/dL Urine Glucose (UA) (NEGATIVE) mg/dL Urine Ketones (NEGATIVE) mg/dL Urine Occult Blood (NEGATIVE) Urine Nitrite (NEGATIVE) Urine Bilirubin (NEGATIVE) Urine Urobilinogen (0.2) EU/dL Ur Leukocyte Esterase (NEGATIVE) Urine RBC (NOT SEEN) /HPF Urine WBC (NOT SEEN) /HPF Ur Squamous Epith Cells (NOT SEEN) /HPF Urine Bacteria (NOT SEEN) /HPF Urine Mucus (NOT SEEN) /LPF Urine Opiates Screen (NEGATIVE) Ur Buprenorphine Scrn (NEGATIVE) Ur Oxycodone Screen (NEGATIVE) Urine Methadone Screen (NEGATIVE) Ur Barbiturates Screen (NEGATIVE) Ur Phencyclidine Scrn (NEGATIVE) Ur Amphetamine Screen (NEGATIVE) U Methamphetamines Scrn (NEGATIVE) Urine MDMA Screen (NEGATIVE) U Benzodiazepines Scrn (NEGATIVE) U Cocaine Metab Screen (NEGATIVE) U Marijuana (THC) Screen (NEGATIVE) Ethyl Alcohol 149 H (0-3) mg/dL SARS CoV-2 RNA Rapid SANNA (NEGATIVE) 11/20/21 11/20/21 11/20/21 Range/Units 18:24 18:24 18:24 WBC (4.0-10.0) x10^3/uL RBC (4.00-5.50) x10^6/uL Hgb (12.0-16.0) g/dL Hct (33.0-47.0) % MCV (78.0-93.0) fL MCH (26.0-32.0) pg MCHC (32.0-36.0) g/dL RDW Coeff of Jacqueline (10.0-15.0) % Plt Count (130-400) x10^3/uL Immature Gran % (Auto) (0.00-0.43) % Neut % (Auto) (50.0-80.0) % Lymph % (Auto) (25.0-50.0) % [place] % (Auto) (2.0-11.0) % Eos % (Auto) (0.0-4.0) % Baso % (Auto) (0.2-1.2) % Neut # (Auto) (1.8-7.7) x10^3/uL Lymph # (Auto) (1.0-4.8) x10^3/uL [place] # (Auto) (0.0-0.8) x10^3/uL Eos # (Auto) (0.0-0.5) x10^3/uL Baso # (Auto) (0.0-0.2) x10^3/uL Immature Gran # (Auto) (0.00-0.07) x10^3/uL D-Dimer, Quantitative (<=0.58) mg/LFEU Sodium (136-145) mmol/L Potassium (3.5-5.1) mmol/L Chloride (98-107) mmol/L Carbon Dioxide (21-32) mmol/L Anion Gap (5-15) mmol/L BUN (7-18) mg/dL Creatinine (0.55-1.02) mg/dL Est Cr Clr Drug Dosing Estimated GFR (MDRD) Glucose (70-99) mg/dL Lactic Acid 3.3 H* (0.4-2.0) mmol/L Calcium (8.5-10.1) mg/dL Corrected Calcium (8.5-10.1) mg/dL Magnesium (1.8-2.4) mg/dL Total Bilirubin (0.2-1.0) mg/dL AST (15-37) U/L ALT (14-59) U/L Alkaline Phosphatase (46-116) U/L Ammonia 61 H (19-54) ug/dL Creatine Kinase (26-192) U/L Troponin I High Sens (<=51) ng/L NT-Pro-B Natriuret Pep (<=125) pg/mL Total Protein (6.4-8.2) g/dL Albumin (3.4-5.0) g/dL Globulin Albumin/Globulin Ratio Procalcitonin <0.05 L (0.1-0.50) ng/mL Urine Color (YELLOW) Urine Appearance (CLEAR) Urine pH (5.0-8.0) Ur Specific [place] Urine Protein (NEGATIVE) mg/dL Urine Glucose (UA) (NEGATIVE) mg/dL Urine Ketones (NEGATIVE) mg/dL Urine Occult Blood (NEGATIVE) Urine Nitrite (NEGATIVE) Urine Bilirubin (NEGATIVE) Urine Urobilinogen (0.2) EU/dL Ur Leukocyte Esterase (NEGATIVE) Urine RBC (NOT SEEN) /HPF Urine WBC (NOT SEEN) /HPF Ur Squamous Epith Cells (NOT SEEN) /HPF Urine Bacteria (NOT SEEN) /HPF Urine Mucus (NOT SEEN) /LPF Urine Opiates Screen (NEGATIVE) Ur Buprenorphine Scrn (NEGATIVE) Ur Oxycodone Screen (NEGATIVE) Urine Methadone Screen (NEGATIVE) Ur Barbiturates Screen (NEGATIVE) Ur Phencyclidine Scrn (NEGATIVE) Ur Amphetamine Screen (NEGATIVE) U Methamphetamines Scrn (NEGATIVE) Urine MDMA Screen (NEGATIVE) U Benzodiazepines Scrn (NEGATIVE) U Cocaine Metab Screen (NEGATIVE) U Marijuana (THC) Screen (NEGATIVE) Ethyl Alcohol (0-3) mg/dL SARS CoV-2 RNA Rapid SANNA (NEGATIVE) 11/20/21 11/20/21 11/20/21 Range/Units 18:35 20:21 20:21 WBC (4.0-10.0) x10^3/uL RBC (4.00-5.50) x10^6/uL Hgb (12.0-16.0) g/dL Hct (33.0-47.0) % MCV (78.0-93.0) fL MCH (26.0-32.0) pg MCHC (32.0-36.0) g/dL RDW Coeff of Jacqueline (10.0-15.0) % Plt Count (130-400) x10^3/uL Immature Gran % (Auto) (0.00-0.43) % Neut % (Auto) (50.0-80.0) % Lymph % (Auto) (25.0-50.0) % [place] % (Auto) (2.0-11.0) % Eos % (Auto) (0.0-4.0) % Baso % (Auto) (0.2-1.2) % Neut # (Auto) (1.8-7.7) x10^3/uL Lymph # (Auto) (1.0-4.8) x10^3/uL [place] # (Auto) (0.0-0.8) x10^3/uL Eos # (Auto) (0.0-0.5) x10^3/uL Baso # (Auto) (0.0-0.2) x10^3/uL Immature Gran # (Auto) (0.00-0.07) x10^3/uL D-Dimer, Quantitative (<=0.58) mg/LFEU Sodium (136-145) mmol/L Potassium (3.5-5.1) mmol/L Chloride (98-107) mmol/L Carbon Dioxide (21-32) mmol/L Anion Gap (5-15) mmol/L BUN (7-18) mg/dL Creatinine (0.55-1.02) mg/dL Est Cr Clr Drug Dosing Estimated GFR (MDRD) Glucose (70-99) mg/dL Lactic Acid (0.4-2.0) mmol/L Calcium (8.5-10.1) mg/dL Corrected Calcium (8.5-10.1) mg/dL Magnesium (1.8-2.4) mg/dL Total Bilirubin (0.2-1.0) mg/dL AST (15-37) U/L ALT (14-59) U/L Alkaline Phosphatase (46-116) U/L Ammonia (19-54) ug/dL Creatine Kinase (26-192) U/L Troponin I High Sens (<=51) ng/L NT-Pro-B Natriuret Pep (<=125) pg/mL Total Protein (6.4-8.2) g/dL Albumin (3.4-5.0) g/dL Globulin Albumin/Globulin Ratio Procalcitonin (0.1-0.50) ng/mL Urine Color Light yellow (YELLOW) Urine Appearance Clear (CLEAR) Urine pH 6.0 (5.0-8.0) Ur Specific [place] <=1.005 Urine Protein Negative (NEGATIVE) mg/dL Urine Glucose (UA) Negative (NEGATIVE) mg/dL Urine Ketones Negative (NEGATIVE) mg/dL Urine Occult Blood Small H (NEGATIVE) Urine Nitrite Negative (NEGATIVE) Urine Bilirubin Negative (NEGATIVE) Urine Urobilinogen 0.2 (0.2) EU/dL Ur Leukocyte Esterase Negative (NEGATIVE) Urine RBC 5-10 H (NOT SEEN) /HPF Urine WBC 0-5 (NOT SEEN) /HPF Ur Squamous Epith Cells Occasional H (NOT SEEN) /HPF Urine Bacteria Occasional H (NOT SEEN) /HPF Urine Mucus Rare H (NOT SEEN) /LPF Urine Opiates Screen Negative (NEGATIVE) Ur Buprenorphine Scrn Negative (NEGATIVE) Ur Oxycodone Screen Negative (NEGATIVE) Urine Methadone Screen Negative (NEGATIVE) Ur Barbiturates Screen Negative (NEGATIVE) Ur Phencyclidine Scrn Negative (NEGATIVE) Ur Amphetamine Screen Negative (NEGATIVE) U Methamphetamines Scrn Negative (NEGATIVE) Urine MDMA Screen Negative (NEGATIVE) U Benzodiazepines Scrn Positive H (NEGATIVE) U Cocaine Metab Screen Negative (NEGATIVE) U Marijuana (THC) Screen Negative (NEGATIVE) Ethyl Alcohol (0-3) mg/dL SARS CoV-2 RNA Rapid SANNA Negative (NEGATIVE) Meds: Medications Generic Name Dose Route Start Last Admin Trade Name Freq PRN Reason Stop Dose Admin Acetaminophen 650 mg 11/20/21 23:43 Acetaminophen 325 Mg Tab PO Q4H PRN Pain (Mild 1-3)/fever Hydrocodone Bitart/Acetaminophen 1 tab 11/20/21 23:43 Acetaminophen/Hydrocodone 325-5 Mg Tab PO Q4H PRN Pain (moderate 4-6) Albuterol 2.5 mg 11/20/21 23:43 Albuterol 0.083% 2.5 Mg/3 Ml Neb Soln NEB Q4H PRN Dyspnea Buspirone HCl 7.5 mg 11/21/21 08:00 Buspirone 15 Mg Tab PO BID ASHLEY Calcium Carbonate/Glycine 1,500 mg 11/20/21 23:58 Calcium Carbonate 750 Mg Tab.Chew PO QID PRN Heartburn Docusate Sodium 100 mg 11/20/21 23:43 Docusate Sodium 100 Mg Cap PO BID PRN Constipation Duloxetine HCl 60 mg 11/21/21 08:00 Duloxetine 60 Mg Cap PO DAILY [facility] Enoxaparin Sodium 40 mg 11/21/21 08:00 Enoxaparin 40 Mg/0.4 Ml Syringe SUBCUT DAILY A[facility] Folic Acid 1 mg 11/20/21 22:15 11/20/21 23:22 Folic Acid 1 Mg Tab PO 1 mg DAILY A[facility] Administration Furosemide 40 mg 11/21/21 08:00 Furosemide 40 Mg/4 Ml Vial IV DAILY [facility] Gabapentin 100 mg 11/20/21 23:45 Gabapentin 100 Mg Cap PO BID [facility] Hydromorphone HCl 0.5 mg 11/20/21 23:43 Hydromorphone 0.5 Mg/0.5 Ml Syringe IVPUSH Q2H PRN Pain (severe 7-10) Promethazine HCl 12.5 mg/ 100 mls @ 200 mls/hr 11/20/21 23:43 Sodium Chloride IV Q6H PRN Nausea/Vomiting Ibuprofen 600 mg 11/20/21 23:43 Ibuprofen 200 Mg Tab PO Q6H PRN Pain (mild 1-3) Lorazepam 0.5 mg 11/20/21 23:58 Lorazepam 0.5 Mg Tab PO TID PRN Anxiety Losartan Potassium 50 mg 11/21/21 08:00 Losartan 50 Mg Tab PO DAILY [facility] Magnesium Chloride 128 mg 11/21/21 08:00 Magnesium Chloride 64 Mg Tab.Er PO BID A[facility] Melatonin 6 mg 11/21/21 20:00 Melatonin 3 Mg Tab PO BEDTIME A[facility] Nicotine 21 mg 11/20/21 22:15 11/20/21 23:22 Nicotine 21 Mg/24 Hr Patch TRDERM Not Given DAILY [facility] Non-Formulary Medication 1 applic 11/20/21 23:58 Nystatin [Nystatin] TOP BID PRN Rash Omeprazole 40 mg 11/21/21 20:00 Omeprazole 20 Mg Cap.Cr PO BEDTIME [facility] Ondansetron HCl 4 mg 11/20/21 23:43 Ondansetron 4 Mg Tab.Dis PO Q6H PRN nausea, able to take PO Potassium Chloride 20 meq 11/21/21 08:00 Potassium Chloride 20 Meq Tab.Er PO BIDMEALS [facility] Sodium Chloride 10 ml 11/20/21 18:16 Sodium Chloride 0.9% 10 Ml Syringe FLUSH ASDIRECTED PRN Keep Vein Open Spironolactone 12.5 mg 11/21/21 08:00 Spironolactone 25 Mg Tab PO DAILY [facility] Thiamine HCl 100 mg 11/21/21 20:00 Thiamine 100 Mg Tab PO BEDTIME [facility] Trazodone HCl 75 mg 11/21/21 20:00 Trazodone 50 Mg Tab PO BEDTIME [facility] Trimethoprim/Sulfamethoxazole 1 tab 11/20/21 21:15 Sulfamethoxazole/Trimethoprim 800-160 Mg Tab PO BID A[facility] Discontinued Medications Generic Name Dose Route Start Last Admin Trade Name Freq PRN Reason Stop Dose Admin Furosemide 40 mg 11/20/21 18:16 Furosemide 40 Mg/4 Ml Vial IV 11/20/21 18:17 ONETIME ONE Magnesium Sulfate 2 gm/ Premix 50 mls @ 25 mls/hr 11/20/21 21:41 11/20/21 23:21 IV 11/20/21 23:40 25 mls/hr ONETIME ONE Administration Iopamidol 100 ml 11/20/21 20:29 11/20/21 20:33 Iopamidol 755 Mg/Ml 100 Ml Bottle IVPUSH 11/20/21 20:30 100 ml ONETIME ONE Administration Iopamidol 100 ml 11/20/21 20:31 Iopamidol 755 Mg/Ml 100 Ml Bottle IVPUSH 11/20/21 20:32 ONETIME ONE - Radiology Interpretation Free Text/Narrative:: chest x-ray negative for acute other than mild elevation of the right hemidiaphragm but portable study and body habitus as limiting, interpreted by radiologist. CT aorta with run off, No significant arterial occlusive disease severe edema involving the lower extremities as detail in report heterogenous fatty liver interpreted by radiologist - Re-Assessments/Exams Free Text/Narrative Re-Assessment/Exam: 11/20/21 20:56 white count was elevated, but could be due to sitting in a chair for a day. will place a dean catheter due to need for diuresis, edema, and accurate I and o. 2400 of dilute urine out, etoh is elevated at .14. ammonia slightly elevated, daily drinker of alcohol. blood cultures, procalcitonin, lactic ordered. lactic is elevated but probably due to liver disease. Due to significant fluid overload,will not give fluids. feet are severely edemeatous which could be due to position in a chair for the last 24 hours, but cold, concern for vascular occlusion. will get ct aorta with run off. If negative, needs compression and diuresis and stop drinking, if positive needs transfer. 11/20/21 21:06 urine is from cath, will cover with bactrim due to allergies, can take po 11/20/21 21:41 another 1000 cc out. Will start magnesium. Awaiting ct report. 11/20/21 22:09 ct returns, no arterial occlusion. severe edema/ due to alcohol abuse, body habitus, positioning. Needs inpatient diuresis, will replace magnesium. Has not had a seizure with quitting alcohol. Will put inpatient. [place] protocols. Needs leg wrapped with gauze, ken[place] wraps. strict I & O. Discussed need to be done with alcohol. Mild elevation of lactic acid and ammonia with liver disease. blood pressure is low at 114/60. Total of 3400 in dean bag with some lost in the chucks. 11/21/21 00:18 Patient will need to be here greater than two midnights for diuresis, discussion of safety at home, alcohol detox and electrolyte monitoring. PLan to return to home if she can be ambulatory, otherwise may need rehab Departure - Departure Time of Disposition: 22:03 Disposition: Admitted As Inpatient 64 Clinical Impression: Peripheral edema, Alcohol abuse, Alcoholic liver disease, unspecified, Self- care deficit, Hypomagnesemia, UTI (urinary tract infection), Lactic acid blood increased - Discharge Information Sepsis Event Note (ED) - Focused Exam Vital Signs: Vital Signs Temp Pulse Resp BP Pulse Ox 11/20/21 17:57 36.8 C 112 H 20 114/54 L 95 - My Orders Last 24 Hours: My Active Orders 11/20/21 18:14 Urinary Catheter Assessment [RC] ASDIRECTED 11/20/21 18:15 Insert Urinary Catheter [OM.PC] Q24H 11/20/21 18:16 Sodium Chloride 0.9% [Saline Flush] 10 ml FLUSH ASDIRECTED PRN Peripheral IV Insertion Adult [OM.PC] Routine 11/20/21 19:38 Ang Abdomen Aorta w Bi Runoff [CT] Stat 11/20/21 19:39 Blood Culture x2 Reflex Set [OM.PC] Stat 11/20/21 20:28 CULTURE BLOOD [BC] Stat 11/20/21 20:32 CULTURE BLOOD [BC] Stat 11/20/21 21:15 Sulfamethoxazole/Trimethoprim [Septra DS] 1 tab PO BID - Assessment/Plan Last 24 Hours: My Active Orders 11/20/21 18:14 Urinary Catheter Assessment [RC] ASDIRECTED 11/20/21 18:15 Insert Urinary Catheter [OM.PC] Q24H 11/20/21 18:16 Sodium Chloride 0.9% [Saline Flush] 10 ml FLUSH ASDIRECTED PRN Peripheral IV Insertion Adult [OM.PC] Routine 11/20/21 19:38 Ang Abdomen Aorta w Bi Runoff [CT] Stat 11/20/21 19:39 Blood Culture x2 Reflex Set [OM.PC] Stat 11/20/21 20:28 CULTURE BLOOD [BC] Stat 11/20/21 20:32 CULTURE BLOOD [BC] Stat 11/20/21 21:15 Sulfamethoxazole/Trimethoprim [Septra DS] 1 tab PO BID
[2021-11-20] MEDS ORDERED: Magnesium Sulfate/Water 2 GM in Premix Bag 1 BAG IV ONE (21:41)
[2021-11-20] MEDS: Nicotine 21 MG/24 Hr Patch TRDERM SCH (23:22)
[2021-11-20] MEDS: Folic Acid 1 MG Tab PO SCH (23:22)
[2021-11-20] MEDS ORDERED: Promethazine 12.5 MG in Sodium Chloride 0.9% 100 ML IV PRN (23:43)
[2021-11-20] MEDS ORDERED: Docusate Sodium 100 MG Cap PO PRN (23:43)
[2021-11-20] MEDS ORDERED: Ondansetron 4 MG Tab.DIS PO PRN (23:43)
[2021-11-20] MEDS ORDERED: HYDROmorphone 0.5 MG/0.5 ML Syringe IVPUSH PRN (23:43)
[2021-11-20] MEDS ORDERED: Acetaminophen 325 MG Tab PO PRN (23:43)
[2021-11-20] MEDS ORDERED: Calcium Carbonate 750 MG Tab.Chew PO PRN (23:58)
[2021-11-21] MEDS: Gabapentin 100 MG Cap PO SCH ×4 (00:26→14:56)
[2021-11-21] MEDS: Acetaminophen/HYDROcodone 325-5 MG Tab PO PRN ×3 (00:26→17:43)
[2021-11-21] MEDS: Sulfamethoxazole/Trimethoprim 800-160 MG Tab PO SCH ×3 (00:27→10:10)
[2021-11-21] MEDS: LORazepam 0.5 MG Tab PO PRN (01:43)
[2021-11-21] MEDS: Ibuprofen 200 MG Tab PO PRN ×2 (02:10→14:54)
[2021-11-21] MEDS: Melatonin 3 MG Tab PO SCH (02:10)
[2021-11-21] MEDS: traZODone 50 MG Tab PO SCH (02:11)
[2021-11-21] MEDS ORDERED: Potassium Chloride 20 MEQ Tab.ER PO SCH (08:00)
[2021-11-21 08:05] LABS: CHLORIDE,CL 95 mmol/L (98-107); SODIUM,NA 136 mmol/L (136-145)
[2021-11-21 08:11] LABS: ANION GAP 10.1 mmol/L (5-15)
[2021-11-21] MEDS: Furosemide 40 MG/4 ML VIAL IV SCH (10:02)
[2021-11-21] MEDS: Nicotine 21 MG/24 Hr Patch TRDERM SCH (10:03)
[2021-11-21] MEDS: Magnesium Chloride 64 MG Tab.ER PO SCH (10:04)
[2021-11-21] MEDS: Folic Acid 1 MG Tab PO SCH (10:04)
[2021-11-21] MEDS: DULoxetine 60 MG Cap PO SCH (10:04)
[2021-11-21] MEDS: busPIRone 15 MG Tab PO SCH (10:05)
[2021-11-21] MEDS: Enoxaparin 40 MG/0.4 ML Syringe SUBCUT SCH (10:05)
[2021-11-21] MEDS: Thiamine 200 MG/2 ML MDV IV SCH (10:06)
[2021-11-21] MEDS: Losartan 50 MG Tab PO SCH (10:09)
[2021-11-21] MEDS: Spironolactone 25 MG Tab PO SCH (10:30)
--- NOTE | 2021-11-21 10:35 | HP ---
CHIEF COMPLAINT: Leg swelling, cold feet, and trouble standing. HISTORY OF PRESENT ILLNESS: This is a 56-year-old female who is well known to myself from her previous admission and discharge on 11/09 to 11/12 for electrolyte disturbance, which was likely associated with increased alcohol intake. The patient states she had only had 1 alcoholic drink like in the last 24 hours, but prior to that had, had more with friends and her blood alcohol was 149. She had been taking her Lasix and Aldactone, but her legs continued to swell. She had been sitting in her chair and had continued smoking cigarettes for about 14 hours straight and then just was unable to walk. She has had previous falls, but denies any injuries. She had reported to drinking 4 mixed drinks a day on her previous admission. She has no chest pain. She has a chronic cough. Her chest x-ray did not show any pneumonia. She has recently been on Levaquin for pneumonia last month and clindamycin for cellulitis. Given allergy, she was started on Bactrim through the ER. She was given IV Lasix and had significant urine output. Her legs were Chava wrapped and her swelling has much improved. This morning, she was in pain. She has burning neuropathy in her feet and did get a hydrocodone, so she was sleeping well, but now she woke up easily. She answered questions appropriately. When I talked about incentive spirometry, she pointed to it on the tray. ALLERGIES: Include cefazolin, morphine, penicillins, and povidone iodine. MEDICATIONS: Her medications previous to this admission were Tylenol 1000 every 6 hours as needed for pain; Buspar 7.5 twice a day; calcium 4 times a day as needed; duloxetine 60 mg daily; furosemide 40 mg daily; Neurontin 100 b.i.d.; Ativan 0.5 t.i.d. p.r.n. anxiety; losartan 50 mg daily; magnesium chloride 128 t.i.d.; melatonin 10 mg at bedtime; nystatin cream p.r.n.; Prilosec 40 mg at bedtime; potassium 20 b.i.d.; spironolactone 12.5 in the morning; and trazodone 75 at bedtime. 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 PAST SURGICAL HISTORY: The patient has had the knee replacements. She has had cholecystectomy, hysterectomy, , lap colon resection, cystoscopy, laparotomy, cataracts, bunionectomy. FAMILY HISTORY: Father had lung cancer. Mother and father are both . SOCIAL HISTORY: She smokes. She lives independently. She drinks alcohol. REVIEW OF SYSTEMS: General: The patient is not aware of any weight changes. No fever. No chills. HEENT: No trouble swallowing. Cardiac: No chest pain. No palpitations. Respiratory: She has a chronic cough. She denies any change. She is not short of breath. Gastrointestinal: No abdominal pain, nausea, or vomiting. Genitourinary: No burning with urination. Otherwise, all systems reviewed and found to be negative unless otherwise stated. PHYSICAL EXAMINATION: Vital Signs: Currently, her temperature is 98.2, her weight is 110.3 kg, pulse 120, blood pressure 113/61, respiratory rate 18, O2 of 93% on 2 L. General: She is in no acute distress. Heart: Regular rate and rhythm. S1, S2 without murmur. Lungs: Sounds are clear to auscultation bilaterally without crackles or wheezes. Abdomen: She has positive bowel sounds. Soft, nondistended, nontender. Extremities: Warm and dry. Some mild redness, worse on the right and they are tender. She has just trace ankle edema which sounds to be much improved per report. Elastic wraps were removed. Mental Status: Alert and orientated x3. LABORATORY DATA: Laboratory work did improve down to 12.8 this morning and she had not received an antibiotic as of yet, hemoglobin 14.3, platelets 394. INR 0.9. Sodium 136, potassium 5.1, chloride 95, bicarb 36, BUN 14, creatinine 0.7, glucose 114, lactic down to 1.5 from 3.3, magnesium up to 2 after IV magnesium given for 1.4. UA showed 5 to 10 rbc's, but 0 to 5 wbc's. Urine positive for benzo, which she is prescribed Ativan. Alcohol 149. Coronavirus disease negative. ASSESSMENT: 1. Bilateral lower extremity edema, unknown etiology. The patient could potentially have underlying cirrhosis and ascites. We can get an abdominal ultrasound to evaluate further for that. Her symptoms are currently controlled with the IV Lasix and Aldactone. 2. Cellulitis, right lower extremity. It seems to be nearly resolved. We will give her Bactrim twice daily for 3 more days, especially given her white count and lactic acidosis. 3. Hypomagnesemia. Replaced IV. We will continue oral, but I will hold off on oral potassium as her levels are maintained. 4. Smoking. She has a nicotine patch. 5. Obesity. 6. Alcohol abuse. We will have Equine Science Instructor involved. [facility] protocols 7. Weakness due to underlying medical conditions. We will get her assessed by therapies. She does not have a history of any significant withdrawals. 8. Deep vein thrombosis prophylaxis. She is on Lovenox. 9. Chronic obstructive pulmonary disease with chronic cough. She will be on her home inhalers. We will wean oxygen as able. We will continue incentive spirometry. 10.Anxiety. She will have her home medications. 11.Essential hypertension, controlled. We will continue her losartan. 12.Mildly elevated LFTs. We will repeat her hepatic panel tomorrow. I do not feel that she met any criteria for an acute alcoholic hepatitis. Her AST was only 54. 13.Lactic acidosis, resolved, possibly due to alcohol intake, possibly a minor infection. 14.Hyponatremia, resolved. Procalcitonin was actually undetectable on admission. PLAN: The patient is admitted to continue on acute cares for electrolyte replacement/monitoring and treatment of edema. We will remove her Jaimes. We will continue her on oral Bactrim. We will get her up and working with therapies. We will get her pain controlled from neuropathy with increased Neurontin to 3 times a day and we will continue IV Lasix and oral Aldactone with monitoring of kidney function closely. Expect the patient to have another 1 to [address] Sanchez to assume care on Tuesday. I am dictating this note as an NMR provider. The patient is a code level 1. MKA: 11/21/2021 09:54:41 MODL: 11/21/2021 10:27:03 /[id number] MTDD
--- NOTE | 2021-11-21 10:54 | CT ---
[id number] CT/CTA Abdomen Aorta W Runoff EXAM: CTA Abdomen Aorta W Runoff INDICATION: Swollen and cold extremities COMPARISON: None. DISCUSSION: The abdominal aorta and its major branches including the common, internal and external branches of the iliac arteries demonstrate hard and soft plaque with no aneurysmal dilation, significant stenosis, dissection or other acute findings. Evaluation of the popliteal arteries is limited by streak artifact. There is mild scattered plaque in the lower extremity arterial systems bilaterally particularly within the common femoral arteries. No hemodynamically significant stenosis, aneurysmal dilation or dissection is identified. Three-vessel runoff bilaterally. Subcutaneous edema throughout both lower extremities. Bilateral knee arthroplasties. Mild fatty atrophy of the lower extremity musculature bilaterally. 20 mm intramuscular lipoma in the extensor compartment of the proximal right thigh. Prior sigmoid colon resection. Probable previous hysterectomy. The urinary bladder is decompressed by a Jaimes catheter. Prominent colonic stool volume. Possible hepatic steatosis. Mild nonspecific thickening of the left adrenal gland. Partially characterized peripheral hypodensities in the right and left lobes of the liver potentially representing focal fat. Scattered degenerative changes in the feet, ankles, hips and spine. Surgical changes are noted in the first toes bilaterally. IMPRESSION: 1. Scattered atherosclerotic plaque in the aorta, iliac, and common femoral arteries. No significant stenosis, dissection or other acute arterial findings in the abdomen, pelvis or either lower extremity. 2. Subcutaneous edema throughout both lower extremities. eDrick Riley MD 11/21/21 1053 Thank you for allowing us to participate in the care of your patient.
[2021-11-21] MEDS ORDERED: traZODone 50 MG Tab PO SCH (20:00)
[2021-11-21] MEDS ORDERED: Thiamine 100 MG Tab PO SCH (20:00)
[2021-11-21] MEDS ORDERED: Melatonin 3 MG Tab PO SCH (20:00)
--- NOTE | 2021-11-21 20:15 | PCM.SN.2 ---
- Free Text/Narrative Note: Note, this provider was on the floor for another reason and stopped by to visit the patient. SHe is doing better, but complaining of pins and needles sensation of her feet and ankles that were so cold and edematous yesterday. Takes gabapentin 100 mg bid. Will add 200 mg tonight as a one time dose and see if this helps here neuropathic pain. PCP to increase dose as needed
[2021-11-21] MEDS ORDERED: Gabapentin 100 MG Cap PO ONE (21:15)
[2021-11-22] MEDS: Furosemide 40 MG/4 ML VIAL IV SCH (07:43)
[2021-11-22] MEDS: Thiamine 200 MG/2 ML MDV IV SCH (07:43)
[2021-11-22] MEDS: Magnesium Chloride 64 MG Tab.ER PO SCH ×3 (07:44→20:40)
[2021-11-22] MEDS: Spironolactone 25 MG Tab PO SCH (07:45)
[2021-11-22] MEDS: Gabapentin 100 MG Cap PO SCH ×3 (07:46→20:42)
[2021-11-22] MEDS: DULoxetine 60 MG Cap PO SCH (07:46)
[2021-11-22] MEDS: Folic Acid 1 MG Tab PO SCH (07:46)
[2021-11-22] MEDS: busPIRone 15 MG Tab PO SCH ×3 (07:46→20:42)
[2021-11-22] MEDS: Sulfamethoxazole/Trimethoprim 800-160 MG Tab PO SCH ×3 (07:46→20:43)
[2021-11-22] MEDS: Enoxaparin 40 MG/0.4 ML Syringe SUBCUT SCH (07:47)
[2021-11-22] MEDS: Nicotine 21 MG/24 Hr Patch TRDERM SCH (07:47)
[2021-11-22 08:16] LABS: CHLORIDE,CL 94 mmol/L (98-107); SODIUM,NA 136 mmol/L (136-145)
[2021-11-22 08:24] LABS: ANION GAP 7.1 mmol/L (5-15)
--- NOTE | 2021-11-22 11:44 | PN ---
Progress Note for JUVENAL ARTEAGA Date: 11/22/2021 Room #: VM.214 SUBJECTIVE: This is hospital day #3 on a 56-year-old, admitted on the late evening of the due to weakness, bilateral leg swelling, who had a recent admission for electrolyte disturbance and has known underlying increased alcohol intake. She has not gone through treatment for many years. She had told me yesterday she does not plan to return to drinking. She has not had any significant withdrawal. She did only use 1 Ativan during the night. Her biggest concern continues to be her leg pain, but it is much better after getting an additional 200 of Neurontin at bedtime. She tolerated 100 mg 3 times a day yesterday. She did get [place]stock x3 yesterday and Motrin x2. She was unable to tolerate the leg wraps, but her swelling is much improved. Her breathing is good. She was drinking significant amounts of water, at least 2 L, and tomato juice. She is asking for a regular pop or even a diet Coke today. She continues to have a cough and has a history of smoking, was not aware that nebulizers are available. She does not have them at home, but she has used them before. She is eating 100% of her breakfast. No fever, no chills. OBJECTIVE: Vital Signs: Her temperature is 97.8, pulse 117, blood pressure 128/69, respiratory rate 18, and O2 of 90 on 2 L. General: She is in no acute distress. Heart: Regular rate and rhythm. S1, S2 without murmur. Lungs: Sounds are just decreased slightly, but no crackles, no wheezes. Abdomen: Positive bowel sounds. Soft, nondistended, nontender. Extremities: Warm and dry. She does have some redness in the right ankle, but no severe cellulitis changes. It is tender to the touch, especially on the right ankle and calf, but anterior wang, not posterior. Legs are swollen equally. Mental Status: Alert and orientated x3. She is not anxious. LABORATORY DATA: Lab work does show her white count 10.2, hemoglobin 13.9, platelets 352. Sodium 136, potassium 5.1, chloride 94, bicarb 40, BUN 13, creatinine 0.8, glucose 94, calcium 8.9, AST down to 44, ALT normal, alkaline phosphatase 140, albumin 2.5. ASSESSMENT: 1. Bilateral lower extremity edema, unknown etiology, possibly underlying cirrhosis and ascites. There was some coolness on admission. She did get aortic runoff, which did not show any significant vascular disease. We will see if we can get her set up for a right lower extremity ultrasound tomorrow. She got her IV Lasix this morning. We will continue oral Lasix and oral Aldactone and repeat lab work in the morning. 2. Cellulitis, right lower extremity. She is on day 2 of Bactrim of a 3-day course. She has previously been treated with clindamycin. 3. Hypomagnesemia. Replaced IV. We will repeat tomorrow. 4. Smoking, a nicotine patch is ordered 5. Chronic obstructive pulmonary disease with chronic cough. The patient was informed she does have nebulizers here available if needed. Her O2 sats are similar to her recent admit she was requiring some oxygen then also. We will try to wean that today. 6. Deep venous thrombosis prophylaxis. She is on Lovenox. 7. Obesity. 8. Alcohol abuse. We have consulted Radiology Physician. She has not had any significant alcohol withdrawals. She is on IV thiamine. Stop CIWA 9. Weakness due to underlying medical conditions. We will get her evaluated by therapies tomorrow. She has been up in her room just to use the commode today with assistance. She is unsteady per nursing. 10.Anxiety. Home medications available. 11.Essential hypertension, controlled. 12.Mildly elevated liver function tests, improving. 13.Lactic acidosis, resolved. 14.Hyponatremia, resolved. PLAN: The patient is to continue on acute cares. We have given her IV Lasix today, but we will switch over to oral tomorrow. We will continue IV thiamine for now given her significant alcohol intake, at least 4 mixed drinks a day. We will continue all her other vitamins and get her up and working with therapies and monitor her electrolytes closely. She also has incentive spirometry to use and we will get in a fluid restriction, low-salt diet, and dietitian consult. I am dictating this note as an NMR provider. Dr. Sanchez to assume care tomorrow. MKA: 11/22/2021 10:43:24 MODL: 11/22/2021 11:35:12 /[id number] OMAR
[2021-11-22] MEDS: traZODone 50 MG Tab PO SCH ×2 (11:53→20:40)
[2021-11-22] MEDS: Omeprazole 20 MG Cap.CR PO SCH ×2 (11:53→20:40)
[2021-11-22] MEDS: Melatonin 3 MG Tab PO SCH ×2 (11:53→20:42)
[2021-11-22] MEDS ORDERED: Gabapentin 100 MG Cap PO ONE (20:12)
[2021-11-22] MEDS: Albuterol 0.083% 2.5 MG/3 ML Neb Soln NEB PRN (23:16)
[2021-11-23] MEDS: LORazepam 0.5 MG Tab PO PRN ×2 (01:51→14:15)
[2021-11-23] MEDS: Gabapentin 100 MG Cap PO SCH ×3 (03:26→14:15)
[2021-11-23] MEDS: Albuterol 0.083% 2.5 MG/3 ML Neb Soln NEB PRN (07:35)
[2021-11-23 07:38] LABS: CHLORIDE,CL 96 mmol/L (98-107); SODIUM,NA 136 mmol/L (136-145)
[2021-11-23 07:40] LABS: ANION GAP 7.8 mmol/L (5-15)
[2021-11-23] MEDS ORDERED: Furosemide 40 MG Tab PO SCH (08:00)
[2021-11-23] MEDS: Sulfamethoxazole/Trimethoprim 800-160 MG Tab PO SCH (08:42)
[2021-11-23] MEDS: DULoxetine 60 MG Cap PO SCH (08:42)
[2021-11-23] MEDS: Magnesium Chloride 64 MG Tab.ER PO SCH (08:42)
[2021-11-23] MEDS: Folic Acid 1 MG Tab PO SCH (08:42)
[2021-11-23] MEDS: Spironolactone 25 MG Tab PO SCH (08:44)
[2021-11-23] MEDS: busPIRone 15 MG Tab PO SCH (08:45)
[2021-11-23] MEDS: Losartan 50 MG Tab PO SCH (08:46)
[2021-11-23] MEDS: Nicotine 21 MG/24 Hr Patch TRDERM SCH (08:47)
[2021-11-23] MEDS: Thiamine 200 MG/2 ML MDV IV SCH (08:47)
[2021-11-23] MEDS: Enoxaparin 40 MG/0.4 ML Syringe SUBCUT SCH (08:47)
[2021-11-23] MEDS ORDERED: Miconazole 2% Top Powder 45 GM Container TOP PRN (09:17)
[2021-11-23] MEDS: Acetaminophen/HYDROcodone 325-5 MG Tab PO PRN (10:20)
--- NOTE | 2021-11-23 11:30 | PCM.DCSUM1 ---
Discharge Summary - Hospital Course Brief History: Ms. Yo is a 56 yo female who was admitted to [facility] for electrolyte abnormalities, leg swelling, and cellulitis after presenting to the ER for evaluation of severe lower extremity weakness. - Discharge Data Discharge Date: 11/23/21 Discharge Disposition: DC/Tfer W/I Hosp To Swing 61 Condition: Good - Referral to Home Health Primary Care Physician: Arminda Sanchez MD - Discharge Diagnosis/Problem(s) (1) Peripheral edema SNOMED Code(s): 284882901 ICD Code: R60.9 - EDEMA, UNSPECIFIED Status: Acute Current Visit: Yes (2) Cellulitis SNOMED Code(s): 648261583 ICD Code: L03.90 - CELLULITIS, UNSPECIFIED Status: Acute Current Visit: No Qualifiers: Site of cellulitis: extremity Site of cellulitis of extremity: lower extremity Laterality: right Qualified Code(s): L03.115 - Cellulitis of right lower limb (3) Generalized weakness SNOMED Code(s): 47259452 ICD Code: R53.1 - WEAKNESS Status: Acute Current Visit: Yes (4) Hypomagnesemia SNOMED Code(s): 778820598 ICD Code: E83.42 - HYPOMAGNESEMIA Status: Acute Current Visit: Yes (5) Alcohol abuse SNOMED Code(s): 32786341 ICD Code: F10.10 - ALCOHOL ABUSE, UNCOMPLICATED Status: Chronic Current Visit: Yes (6) Anxiety and depression SNOMED Code(s): 863501853 ICD Code: F41.9 - ANXIETY DISORDER, UNSPECIFIED; F32.A - DEPRESSION, UNSPECIFIED Status: Chronic Current Visit: No (7) COPD (chronic obstructive pulmonary disease) SNOMED Code(s): 48685359 ICD Code: J44.9 - CHRONIC OBSTRUCTIVE PULMONARY DISEASE, UNSPECIFIED Status: Chronic Current Visit: No Qualifiers: COPD type: unspecified COPD Qualified Code(s): J44.9 - Chronic obstructive pulmonary disease, unspecified (8) Hypertension SNOMED Code(s): 54242306 ICD Code: I10 - ESSENTIAL (PRIMARY) HYPERTENSION Status: Chronic Current Visit: No Qualifiers: Hypertension type: primary hypertension Qualified Code(s): I10 - Essential (primary) hypertension (9) Obesity SNOMED Code(s): 994870879, 845092847 ICD Code: E66.9 - OBESITY, UNSPECIFIED Status: Chronic Current Visit: No Qualifiers: Obesity type: due to excess calories Obesity classification: adult class 2 (BMI 35 - 39.9) Serious obesity comorbidity presence: with serious comorbidity Body mass index: BMI 38.0-38.9 Qualified Code(s): E66.01 - Morbid (severe) obesity due to excess calories; Z68.38 - Body mass index [BMI] 38.0-38.9, adult (10) Tobacco use SNOMED Code(s): 759799601 ICD Code: Z72.0 - TOBACCO USE Status: Chronic Current Visit: No - Patient Summary/Data Operative Procedure(s) Performed: none Complications: none Consults: Consultations 11/20/21 23:43 Consult to Case Management/Wharf Tally Clerk [CONS] Routine OT Evaluation and Treatment [CONS] Routine PT Evaluation and Treatment [CONS] Routine 11/22/21 10:26 Consult to Genetics Physician [CONS] Routine Labs Pending at D/C: none Recommended Follow-up Testing/Procedures: none Planned Operative Procedure(s) after DC: none Hospital Course: The patient was admitted and given IV lasix and IV electrolyte repletion. She was also started on antibiotics for cellulitis and leg wraps for her edema. The patient admitted that alcohol is likely a main contributor to her recurrent issues. check services clerk was consulted to assist with sobriety planning. The leg swelling improved as did the redness in her legs. Electrolytes have also improved. PT did evaluate her and felt she would benefit from ongoing strengthening on swing bed through at least the end of the week. Her hospitalization was otherwise uncomplicated and she is on all oral medications now. She will be transitioned from acute to swing today. - Discharge Plan Home Medications: Home Meds Acetaminophen [Acetaminophen Extra Strength] 1,000 mg PO Q6H PRN 09/30/21 [History] LORazepam [Ativan] 0.5 mg PO TID PRN 09/30/21 [History] Melatonin 10 mg PO BEDTIME 09/30/21 [History] Nystatin 1 applic TOP BID PRN 09/30/21 [History] DULoxetine [Cymbalta] 60 mg PO DAILY #90 cap 10/01/21 [Rx] Losartan [Cozaar] 50 mg PO DAILY #30 tab 10/01/21 [Rx] busPIRone HCl [Buspirone HCl] 7.5 mg PO BID #30 10/01/21 [Rx] traZODone HCl [Trazodone HCl] 75 mg PO BEDTIME #45 10/01/21 [Rx] Calcium Carbonate [Tums] 1,500 mg PO QID PRN 11/09/21 [History] Potassium Chloride [Klor-Con M20] 20 meq PO BID 11/09/21 [History] Gabapentin [Neurontin] 100 mg PO BID cap 11/12/21 [Rx] Omeprazole 40 mg PO BEDTIME #30 cap.cr 11/12/21 [Rx] Spironolactone [Aldactone] 12.5 mg PO DAILY #90 tablet 11/12/21 [Rx] Magnesium Chloride [Mag-64] 128 mg PO BID 11/20/21 [History] Furosemide 40 mg PO DAILY 11/21/21 [History] Forms: ED Department Discharge Referrals: Arminda Sanchez MD [Primary Care Provider] - - Discharge Summary/Plan Comment DC Time >30 min.: No Total # of Minutes for Discharge Time: 25 - General Info Date of Service: 11/23/21 Subjective Update: 56 yo female hospital day #4 admitted again with weakness and pain related to electrolyte abnormalities, leg swelling, and cellulitis. States she is feeling pretty good today. Pain is controlled. Swelling is significantly improved. No chest pain or shortness of breath. Continues with her usual chronic cough. No change. No fevers. - Review of Systems General: Reports: Weakness. Denies: Fever HEENT: Reports: No Symptoms Pulmonary: Reports: Cough. Denies: Shortness of Breath Cardiovascular: Reports: No Symptoms Gastrointestinal: Reports: No Symptoms Genitourinary: Reports: No Symptoms Musculoskeletal: Reports: Leg Pain Skin: Reports: No Symptoms Neurological: Reports: No Symptoms Psychiatric: Reports: No Symptoms - Patient Data Vitals - Most Recent: Last Vital Signs Temp 36.3 C 11/23/21 09:30 Pulse 118 H 11/23/21 09:30 Resp 19 11/23/21 09:30 BP 123/73 11/23/21 09:30 Pulse Ox 94 L 11/23/21 09:30 Weight - Most Recent: 110.178 kg I&O - Last 24 hours: Intake & Output 11/22/21 11/23/21 11/23/21 22:59 06:59 14:59 Intake Total 400 150 Output Total 250 1450 Balance -250 -1050 150 Lab Results - Last 24 hrs: Laboratory Results - last 24 hr 11/23/21 11/23/21 11/23/21 Range/Units 06:50 06:50 06:50 WBC 11.6 H (4.0-10.0) x10^3/uL RBC 4.03 (4.00-5.50) x10^6/uL Hgb 13.7 (12.0-16.0) g/dL Hct 40.9 (33.0-47.0) % MCV 101.5 H (78.0-93.0) fL MCH 34.0 H (26.0-32.0) pg MCHC 33.5 (32.0-36.0) g/dL RDW Coeff of Jacqueline 14.2 (10.0-15.0) % Plt Count 335 (130-400) x10^3/uL Immature Gran % (Auto) 0.20 (0.00-0.43) % Neut % (Auto) 84.0 H (50.0-80.0) % Lymph % (Auto) 9.3 L (25.0-50.0) % Foard % (Auto) 5.6 (2.0-11.0) % Eos % (Auto) 0.5 (0.0-4.0) % Baso % (Auto) 0.4 (0.2-1.2) % Neut # (Auto) 9.8 H (1.8-7.7) x10^3/uL Lymph # (Auto) 1.1 (1.0-4.8) x10^3/uL Foard # (Auto) 0.7 (0.0-0.8) x10^3/uL Eos # (Auto) 0.1 (0.0-0.5) x10^3/uL Baso # (Auto) 0.1 (0.0-0.2) x10^3/uL Immature Gran # (Auto) 0.02 (0.00-0.07) x10^3/uL Sodium 136 (136-145) mmol/L Potassium 4.8 (3.5-5.1) mmol/L Chloride 96 L (98-107) mmol/L Carbon Dioxide 37 H (21-32) mmol/L Anion Gap 7.8 (5-15) mmol/L BUN 10 (7-18) mg/dL Creatinine 0.8 (0.55-1.02) mg/dL Est Cr Clr Drug Dosing 74.54 mL/min Estimated GFR (MDRD) > 60 Glucose 108 H (70-99) mg/dL Calcium 8.7 (8.5-10.1) mg/dL Corrected Calcium 9.9 (8.5-10.1) mg/dL Magnesium 1.7 L (1.8-2.4) mg/dL Total Bilirubin 0.3 (0.2-1.0) mg/dL AST 34 (15-37) U/L ALT 29 (14-59) U/L Alkaline Phosphatase 127 H (46-116) U/L Ammonia (19-54) ug/dL Total Protein 6.0 L (6.4-8.2) g/dL Albumin 2.5 L (3.4-5.0) g/dL Globulin 3.5 Albumin/Globulin Ratio 0.71 11/23/21 Range/Units 06:50 WBC (4.0-10.0) x10^3/uL RBC (4.00-5.50) x10^6/uL Hgb (12.0-16.0) g/dL Hct (33.0-47.0) % MCV (78.0-93.0) fL MCH (26.0-32.0) pg MCHC (32.0-36.0) g/dL RDW Coeff of Jacqueline (10.0-15.0) % Plt Count (130-400) x10^3/uL Immature Gran % (Auto) (0.00-0.43) % Neut % (Auto) (50.0-80.0) % Lymph % (Auto) (25.0-50.0) % Foard % (Auto) (2.0-11.0) % Eos % (Auto) (0.0-4.0) % Baso % (Auto) (0.2-1.2) % Neut # (Auto) (1.8-7.7) x10^3/uL Lymph # (Auto) (1.0-4.8) x10^3/uL Foard # (Auto) (0.0-0.8) x10^3/uL Eos # (Auto) (0.0-0.5) x10^3/uL Baso # (Auto) (0.0-0.2) x10^3/uL Immature Gran # (Auto) (0.00-0.07) x10^3/uL Sodium (136-145) mmol/L Potassium (3.5-5.1) mmol/L Chloride (98-107) mmol/L Carbon Dioxide (21-32) mmol/L Anion Gap (5-15) mmol/L BUN (7-18) mg/dL Creatinine (0.55-1.02) mg/dL Est Cr Clr Drug Dosing mL/min Estimated GFR (MDRD) Glucose (70-99) mg/dL Calcium (8.5-10.1) mg/dL Corrected Calcium (8.5-10.1) mg/dL Magnesium (1.8-2.4) mg/dL Total Bilirubin (0.2-1.0) mg/dL AST (15-37) U/L ALT (14-59) U/L Alkaline Phosphatase (46-116) U/L Ammonia 31 (19-54) ug/dL Total Protein (6.4-8.2) g/dL Albumin (3.4-5.0) g/dL Globulin Albumin/Globulin Ratio CEDRIC Results - Last 24 hrs: Microbiology 11/20/21 20:32 Aerobic Blood Culture - Preliminary Blood - Venous - Lab Draw NO GROWTH AFTER 2 DAYS Anaerobic Blood Culture - Preliminary NO GROWTH AFTER 2 DAYS 11/20/21 20:28 Aerobic Blood Culture - Preliminary Blood - Venous NO GROWTH AFTER 2 DAYS Anaerobic Blood Culture - Preliminary NO GROWTH AFTER 2 DAYS Med Orders - Current: Current Medications Acetaminophen (Acetaminophen 325 Mg Tab) 650 mg PO Q4H PRN PRN Reason: Pain (Mild 1-3)/fever Hydrocodone Bitart/Acetaminophen (Acetaminophen/Hydrocodone 325-5 Mg Tab) 1 tab PO Q4H PRN PRN Reason: Pain (moderate 4-6) Last Admin: 11/23/21 10:20 Dose: 1 tab Documented by: Albuterol (Albuterol 0.083% 2.5 Mg/3 Ml Neb Soln) 2.5 mg NEB Q4H PRN PRN Reason: Dyspnea Last Admin: 11/23/21 07:35 Dose: 2.5 mg Documented by: Buspirone HCl (Buspirone 15 Mg Tab) 7.5 mg PO BID [facility] Last Admin: 11/23/21 08:45 Dose: 7.5 mg Documented by: Calcium Carbonate/Glycine (Calcium Carbonate 750 Mg Tab.Chew) 1,500 mg PO QID PRN PRN Reason: Heartburn Last Admin: 11/22/21 19:55 Dose: 1,500 mg Documented by: Docusate Sodium (Docusate Sodium 100 Mg Cap) 100 mg PO BID PRN PRN Reason: Constipation Duloxetine HCl (Duloxetine 60 Mg Cap) 60 mg PO DAILY [facility] Last Admin: 11/23/21 08:42 Dose: 60 mg Documented by: Enoxaparin Sodium (Enoxaparin 40 Mg/0.4 Ml Syringe) 40 mg SUBCUT DAILY [facility] Last Admin: 11/23/21 08:47 Dose: 40 mg Documented by: Folic Acid (Folic Acid 1 Mg Tab) 1 mg PO DAILY [facility] Last Admin: 11/23/21 08:42 Dose: 1 mg Documented by: Furosemide (Furosemide 40 Mg Tab) 40 mg PO DAILY [facility] Last Admin: 11/23/21 08:45 Dose: 40 mg Documented by: Gabapentin (Gabapentin 100 Mg Cap) 200 mg PO TID [facility] Last Admin: 11/23/21 08:44 Dose: 200 mg Documented by: Promethazine HCl 12.5 mg/ (Sodium Chloride) 100 mls @ 200 mls/hr IV Q6H PRN PRN Reason: Nausea/Vomiting Ibuprofen (Ibuprofen 200 Mg Tab) 600 mg PO Q6H PRN PRN Reason: Pain (mild 1-3) Last Admin: 11/21/21 14:54 Dose: 600 mg Documented by: Lorazepam (Lorazepam 0.5 Mg Tab) 0.5 mg PO TID PRN PRN Reason: Anxiety Last Admin: 11/23/21 01:51 Dose: 0.5 mg Documented by: Losartan Potassium (Losartan 50 Mg Tab) 50 mg PO DAILY [facility] Last Admin: 11/23/21 08:46 Dose: 50 mg Documented by: Magnesium Chloride (Magnesium Chloride 64 Mg Tab.Er) 128 mg PO BID [facility] Last Admin: 11/23/21 08:42 Dose: 128 mg Documented by: Melatonin (Melatonin 3 Mg Tab) 6 mg PO BEDTIME [facility] Last Admin: 11/22/21 20:42 Dose: 6 mg Documented by: Miconazole (Miconazole 2% Top Powder 45 Gm Container) 0 gm TOP BID PRN PRN Reason: Rash Last Admin: 11/23/21 10:21 Dose: 1 applic Documented by: Nicotine (Nicotine 21 Mg/24 Hr Patch) 21 mg TRDERM DAILY [facility] Last Admin: 11/23/21 08:47 Dose: 21 mg Documented by: Omeprazole (Omeprazole 20 Mg Cap.Cr) 40 mg PO BEDTIME [facility] Last Admin: 11/22/21 20:40 Dose: 40 mg Documented by: Ondansetron HCl (Ondansetron 4 Mg Tab.Dis) 4 mg PO Q6H PRN PRN Reason: nausea, able to take PO Sodium Chloride (Sodium Chloride 0.9% 10 Ml Syringe) 10 ml FLUSH ASDIRECTED PRN PRN Reason: Keep Vein Open Last Admin: 11/22/21 19:57 Dose: 10 ml Documented by: Spironolactone (Spironolactone 25 Mg Tab) 12.5 mg PO DAILY [facility] Last Admin: 11/23/21 08:44 Dose: 12.5 mg Documented by: Thiamine HCl (Thiamine 200 Mg/2 Ml Mdv) 100 mg IV DAILY [facility] Last Admin: 11/23/21 08:47 Dose: 100 mg Documented by: Trazodone HCl (Trazodone 50 Mg Tab) 75 mg PO BEDTIME [facility] Last Admin: 11/22/21 20:40 Dose: 75 mg Documented by: Trimethoprim/Sulfamethoxazole (Sulfamethoxazole/Trimethoprim 800-160 Mg Tab) 1 tab PO BID [facility] Stop: 11/23/21 23:00 Last Admin: 11/23/21 08:42 Dose: 1 tab Documented by: Discontinued Medications Furosemide (Furosemide 40 Mg/4 Ml Vial) 40 mg IV ONETIME ONE Stop: 11/20/21 18:17 Last Admin: 11/21/21 00:27 Dose: Not Given Documented by: Furosemide (Furosemide 40 Mg/4 Ml Vial) 40 mg IV DAILY [facility] Last Admin: 11/22/21 07:43 Dose: 40 mg Documented by: Gabapentin (Gabapentin 100 Mg Cap) 100 mg PO BID [facility] Last Admin: 11/21/21 10:10 Dose: Not Given Documented by: Gabapentin (Gabapentin 100 Mg Cap) 100 mg PO TID [facility] Last Admin: 11/23/21 03:26 Dose: Not Given Documented by: Gabapentin (Gabapentin 100 Mg Cap) 200 mg PO ONETIME ONE Stop: 11/22/21 20:13 Gabapentin (Gabapentin 100 Mg Cap) 200 mg PO ONETIME ONE Stop: 11/21/21 21:16 Last Admin: 11/22/21 11:54 Dose: Not Given Documented by: Hydromorphone HCl (Hydromorphone 0.5 Mg/0.5 Ml Syringe) 0.5 mg IVPUSH Q2H PRN PRN Reason: Pain (severe 7-10) Magnesium Sulfate 2 gm/ Premix 50 mls @ 25 mls/hr IV ONETIME ONE Stop: 11/20/21 23:40 Last Admin: 11/20/21 23:21 Dose: 25 mls/hr Documented by: Iopamidol (Iopamidol 755 Mg/Ml 100 Ml Bottle) 100 ml IVPUSH ONETIME ONE Stop: 11/20/21 20:30 Last Admin: 11/20/21 20:33 Dose: 100 ml Documented by: Iopamidol (Iopamidol 755 Mg/Ml 100 Ml Bottle) 100 ml IVPUSH ONETIME ONE Stop: 11/20/21 20:32 Last Admin: 11/21/21 02:39 Dose: Not Given Documented by: Melatonin (Melatonin 3 Mg Tab) 6 mg PO BEDTIME [facility] Potassium Chloride (Potassium Chloride 20 Meq Tab.Er) 20 meq PO BIDMEALS [facility] Last Admin: 11/21/21 10:10 Dose: Not Given Documented by: Thiamine HCl (Thiamine 100 Mg Tab) 100 mg PO BEDTIME [facility] Trazodone HCl (Trazodone 50 Mg Tab) 75 mg PO BEDTIME [facility] Trimethoprim/Sulfamethoxazole (Sulfamethoxazole/Trimethoprim 800-160 Mg Tab) 1 tab PO BID [facility] Last Admin: 11/21/21 10:10 Dose: Not Given Documented by: - Exam General: Reports: Alert, Oriented, Cooperative, No Acute Distress HEENT: Reports: Mucous Membr. Moist/[place] Neck: Reports: Supple, Trachea Midline, No Thyromegaly. Denies: Lymphadenopathy Lungs: Reports: Clear to Auscultation, Normal Respiratory Effort Cardiovascular: Reports: Regular Rate, Regular Rhythm, No Murmurs GI/Abdominal Exam: Normal Bowel Sounds, Soft, Non-Tender, No Organomegaly, No Distention, No Mass Extremities: Normal Inspection, Non-Tender, Normal Capillary Refill, Pedal Edema (trace bilateral edema) Skin: Reports: Warm, Dry, Intact
--- NOTE | 2021-11-23 12:20 | US ---
[id number] US/US Venous Doppler LE Right EXAM: RIGHT LOWER EXTREMITY DUPLEX ULTRASOUND INDICATION: PAIN AND SWELLING. COMPARISON: None. DISCUSSION: The deep venous structures are compressible. No valvular incompetence or pulsatility seen. Spontaneity, phasicity and response to augmentation were noted by the technologist. IMPRESSION: 1. No evidence of deep vein thrombosis in the right lower extremity. Jyace Ramirez DO 11/23/21 [id number] Thank you for allowing us to participate in the care of your patient.
== END 2021-11-23 16:30 | disposition swing bed (61) | DRG 603 ==
LOC: VM.ED 17:57 → VM.MS 22:04
PROVIDERS: ADMIT Physician Assistant; ATTEND Internal Medicine
DX: L03.115 Cellulitis of right lower limb (principal); F10.10 Alcohol abuse, uncomplicated; E83.42 Hypomagnesemia; J44.9 Chronic obstructive pulmonary disease, unspecified; I10 Essential (primary) hypertension; E66.01 Morbid (severe) obesity due to excess calories; F41.9 Anxiety disorder, unspecified; F32.A Depression, unspecified; Z96.653 Presence of artificial knee joint, bilateral; E87.6 Hypokalemia; M48.061 Spinal stenosis, lumbar region without neurogenic claudication; F17.210 Nicotine dependence, cigarettes, uncomplicated; R74.01 Elevation of levels of liver transaminase levels; K74.60 Unspecified cirrhosis of liver; Z20.822 Contact with and (suspected) exposure to COVID-19; Z90.49 Acquired absence of other specified parts of digestive tract; Z90.710 Acquired absence of both cervix and uterus; Z79.899 Other long term (current) drug therapy; Z98.49 Cataract extraction status, unspecified eye; Z68.38 Body mass index [BMI] 38.0-38.9, adult; Z72.0 Tobacco use
CPT/HCPCS: 36415; 71045; 75635; 80048; 80053; 80305-QW; 80307; 81001; 82140; 82550; 83605; 83735; 83880; 84145; 84484; 85025; 85379; 85610; 87040; 93005; 93971-RT; 94640; 94760; 96365; 97163-GP; 97165-GO; 99285-25; A9270-GY; J1650; J1940; J3411; J3475; J7613-GY; Q9967; U0002

== ENCOUNTER 2021-11-23 15:43 | Inpatient (IN) | payer MEDICAID ==
[2021-11-23] MEDS ORDERED: Ondansetron 4 MG Tab.DIS PO PRN (15:54)
[2021-11-23] MEDS ORDERED: Acetaminophen 325 MG Tab PO PRN (15:54)
[2021-11-23] MEDS ORDERED: Docusate Sodium 100 MG Cap PO PRN (15:54)
[2021-11-23] MEDS ORDERED: Albuterol 0.083% 2.5 MG/3 ML Neb Soln NEB PRN (15:54)
[2021-11-23] MEDS: Acetaminophen/HYDROcodone 325-5 MG Tab PO PRN (17:18)
[2021-11-23] MEDS: Magnesium Chloride 64 MG Tab.ER PO SCH (20:14)
[2021-11-23] MEDS: Gabapentin 100 MG Cap PO SCH (20:14)
[2021-11-23] MEDS: Melatonin 3 MG Tab PO SCH (20:14)
[2021-11-23] MEDS: BUSPIRONE 15 MG PO SCH (20:16)
[2021-11-23] MEDS: traZODone 50 MG Tab (OWN SUPPLY) PO SCH (20:17)
[2021-11-23] MEDS: Omeprazole 20 MG Cap.CR (OWN SUPPLY) PO SCH (20:17)
[2021-11-23] MEDS: LORazepam 0.5 MG Tab (OWN SUPPLY) PO PRN (22:04)
[2021-11-24] MEDS: Acetaminophen/HYDROcodone 325-5 MG Tab PO PRN (05:47)
[2021-11-24] MEDS: LORazepam 0.5 MG Tab (OWN SUPPLY) PO PRN (05:51)
[2021-11-24] MEDS ORDERED: Folic Acid 1 MG Tab PO SCH (08:00)
[2021-11-24] MEDS ORDERED: Enoxaparin 40 MG/0.4 ML Syringe SUBCUT SCH (08:00)
[2021-11-24] MEDS: Furosemide 40 MG Tab (OWN SUPPLY) PO SCH (09:08)
[2021-11-24] MEDS: Losartan 50 MG Tab (OWN SUPPLY) PO SCH (09:11)
[2021-11-24] MEDS: Spironolactone 25 MG Tab (OWN SUPPLY) PO SCH (09:12)
[2021-11-24] MEDS: BUSPIRONE 15 MG PO SCH ×2 (09:13→20:10)
[2021-11-24] MEDS: DULOXETINE 20 MG PO SCH (09:13)
[2021-11-24] MEDS: Calcium Carbonate 750 MG Tab.Chew PO PRN ×2 (09:14→20:16)
[2021-11-24] MEDS: Nicotine 21 MG/24 Hr Patch TRDERM SCH (09:15)
[2021-11-24] MEDS: Magnesium Chloride 64 MG Tab.ER PO SCH ×2 (09:15→20:09)
[2021-11-24] MEDS: Gabapentin 100 MG Cap PO SCH ×2 (09:16→12:39)
[2021-11-24] MEDS ORDERED: Acetaminophen/HYDROcodone 325-5 MG Tab PO PRN (13:05)
[2021-11-24] MEDS: Acetaminophen/HYDROcodone 325-5 MG Tab (OWN SUPPLY) PO PRN (17:24)
[2021-11-24] MEDS: Melatonin 3 MG Tab PO SCH (20:09)
[2021-11-24] MEDS: Omeprazole 20 MG Cap.CR (OWN SUPPLY) PO SCH (20:10)
[2021-11-24] MEDS: Gabapentin 100 MG Cap (OWN SUPPLY) PO SCH (20:10)
[2021-11-24] MEDS: traZODone 50 MG Tab (OWN SUPPLY) PO SCH (20:10)
[2021-11-25] MEDS: LORazepam 0.5 MG Tab (OWN SUPPLY) PO PRN ×2 (00:48→19:45)
[2021-11-25 07:39] LABS: CHLORIDE,CL 96 mmol/L (98-107); SODIUM,NA 135 mmol/L (136-145)
[2021-11-25 07:41] LABS: ANION GAP 7.9 mmol/L (5-15)
[2021-11-25] MEDS: Losartan 50 MG Tab (OWN SUPPLY) PO SCH (07:48)
[2021-11-25] MEDS: Spironolactone 25 MG Tab (OWN SUPPLY) PO SCH (07:48)
[2021-11-25] MEDS: BUSPIRONE 15 MG PO SCH ×2 (07:49→19:47)
[2021-11-25] MEDS: Furosemide 40 MG Tab (OWN SUPPLY) PO SCH (07:49)
[2021-11-25] MEDS: DULOXETINE 20 MG PO SCH (07:49)
[2021-11-25] MEDS: Magnesium Chloride 64 MG Tab.ER PO SCH ×2 (07:50→19:41)
[2021-11-25] MEDS: Nicotine 21 MG/24 Hr Patch TRDERM SCH (07:50)
[2021-11-25] MEDS: Gabapentin 100 MG Cap (OWN SUPPLY) PO SCH ×3 (07:51→19:48)
[2021-11-25] MEDS: Ibuprofen 200 MG Tab PO PRN (10:41)
[2021-11-25] MEDS: Acetaminophen/HYDROcodone 325-5 MG Tab (OWN SUPPLY) PO PRN (17:53)
[2021-11-25] MEDS: Melatonin 3 MG Tab PO SCH (19:42)
[2021-11-25] MEDS: Omeprazole 20 MG Cap.CR (OWN SUPPLY) PO SCH (19:45)
[2021-11-25] MEDS: traZODone 50 MG Tab (OWN SUPPLY) PO SCH (19:45)
[2021-11-26] MEDS: Nicotine 21 MG/24 Hr Patch TRDERM SCH (08:56)
[2021-11-26] MEDS: BUSPIRONE 15 MG PO SCH ×2 (08:57→20:20)
[2021-11-26] MEDS: Magnesium Chloride 64 MG Tab.ER PO SCH ×2 (08:57→20:17)
[2021-11-26] MEDS: Spironolactone 25 MG Tab (OWN SUPPLY) PO SCH (08:58)
[2021-11-26] MEDS: DULOXETINE 20 MG PO SCH (08:58)
[2021-11-26] MEDS: Losartan 50 MG Tab (OWN SUPPLY) PO SCH (08:58)
[2021-11-26] MEDS: Gabapentin 100 MG Cap (OWN SUPPLY) PO SCH ×3 (08:59→20:18)
[2021-11-26] MEDS: Furosemide 40 MG Tab (OWN SUPPLY) PO SCH (08:59)
[2021-11-26] MEDS: Ibuprofen 200 MG Tab PO PRN (09:03)
[2021-11-26] MEDS: Albuterol HFA 18 Gm Inhaler INH PRN ×2 (09:05→20:26)
[2021-11-26] MEDS: Melatonin 3 MG Tab PO SCH (20:17)
[2021-11-26] MEDS: Acetaminophen/HYDROcodone 325-5 MG Tab (OWN SUPPLY) PO PRN (20:19)
[2021-11-26] MEDS: Omeprazole 20 MG Cap.CR (OWN SUPPLY) PO SCH (20:20)
[2021-11-26] MEDS: traZODone 50 MG Tab (OWN SUPPLY) PO SCH (20:21)
[2021-11-26] MEDS: LORazepam 0.5 MG Tab (OWN SUPPLY) PO PRN (22:13)
[2021-11-27] MEDS: Ibuprofen 200 MG Tab PO PRN (05:39)
[2021-11-27] MEDS: LORazepam 0.5 MG Tab (OWN SUPPLY) PO PRN (05:41)
[2021-11-27] MEDS: BUSPIRONE 15 MG PO SCH (08:49)
[2021-11-27] MEDS: Spironolactone 25 MG Tab (OWN SUPPLY) PO SCH (08:49)
[2021-11-27] MEDS: Losartan 50 MG Tab (OWN SUPPLY) PO SCH (08:50)
[2021-11-27] MEDS: DULOXETINE 20 MG PO SCH (08:50)
[2021-11-27] MEDS: Furosemide 40 MG Tab (OWN SUPPLY) PO SCH (08:51)
[2021-11-27] MEDS: Magnesium Chloride 64 MG Tab.ER PO SCH (08:51)
[2021-11-27] MEDS: Nicotine 21 MG/24 Hr Patch TRDERM SCH (08:51)
[2021-11-27] MEDS: Gabapentin 100 MG Cap (OWN SUPPLY) PO SCH (08:52)
[2021-11-27] MEDS: Albuterol HFA 18 Gm Inhaler INH PRN (08:57)
== END 2021-11-27 13:00 | disposition home health service (06) | DRG 948 ==
LOC: VM.MS 16:30
PROVIDERS: ADMIT Physician Assistant; ATTEND Family Medicine
DX: R53.81 Other malaise (principal); G47.33 Obstructive sleep apnea (adult) (pediatric); F10.20 Alcohol dependence, uncomplicated; E87.8 Other disorders of electrolyte and fluid balance, not elsewhere classified; R60.9 Edema, unspecified; Z79.899 Other long term (current) drug therapy
CPT/HCPCS: 36415; 80048; 83735; 85027; 94640; 94760; 97110-GP; 97116-GP; 97535-GO; A9270-GY; J1650; J7613-GY